=== PATIENT | male | born 1955 | race Caucasian/White ===

== ENCOUNTER → 2017-11-12 11:05 | Outpatient (CLI) | payer OTHER, SELFPAY ==
--- NOTE | 2017-11-12 11:07 | DI.US.S_ITS ---
PROCEDURE: US CAROTID DOPPLER BI INDICATIONS: ACUTE COGNITIVE DECLINE TECHNIQUE: Color and pulse Doppler interrogation was performed of both carotid systems, with image documentation and velocity measurements. COMPARISON: None. FINDINGS: Stenosis calculations are based on SRU (Society of Radiologists in Ultrasound) criteria. Right side: Brachial blood pressure: 131/81 mm Hg. Common carotid artery peak systolic velocity: 71 cm/sec. Internal carotid artery peak systolic velocity: 72 cm/sec. Internal carotid artery end diastolic velocity: 30 cm/sec. External carotid artery peak systolic velocity: 57 cm/sec. ICA/CCA peak systolic ratio: 1.02 . Chapman scale imaging description: Minimal plaque at the bifurcation. Percent internal carotid artery stenosis: Less than 50%. Vertebral artery: Flow direction is antegrade. Left side: Brachial blood pressure: 115/70 mm Hg. Common carotid artery peak systolic velocity: 116 cm/sec. Internal carotid artery peak systolic velocity: 74 cm/sec. Internal carotid artery end diastolic velocity: 27 cm/sec. External carotid artery peak systolic velocity: 91 cm/sec. ICA/CCA peak systolic ratio: 0.64 . Chapman scale imaging description: Mild plaque at the bifurcation Percent internal carotid artery stenosis: Less than 50%. Vertebral artery: Flow direction is antegrade. IMPRESSION: Less than 50% stenosis of the internal carotid arteries bilaterally. Dictated by: Teodora Ko M.D. on 11/12/2017 at 12:14 Approved by: Teodora Ko M.D. on 11/12/2017 at 12:15
[2017-11-12 12:37] LABS: Hematocrit 45.3 % (41-53); Hemoglobin 15.4 g/dL (13.5-17.5); Mean Corpuscular HGB Conc 33.9 % (30-36); Mean Corpuscular Hemoglobin 31.6 PG (26-34); Mean Corpuscular Volume 93.3 fL (80-100); Platelet Count 103 X10^3/uL (150-400); Red Blood Cell Count 4.86 X10^6/uL (4.5-5.9); Red Cell Distribution Width 15.6 % (11.6-14.8); White Blood Cell Count 5.6 X10^3/uL (4.5-11.0)
[2017-11-12 13:00] LABS: Neutrophils Absolute Manual 3864 /uL (3000-5900); Total Cells Counted 100
[2017-11-12 13:01] LABS: RBC Morphology Normal Morphology
[2017-11-12 13:06] LABS: Alanine Aminotransferase 35 IU/L (21-72); Albumin 4.1 g/dL (3.5-5.0); Albumin Globulin Ratio 1.3 (1.0-2.8); Alkaline Phosphatase 30 U/L (38-126); Aspartate Aminotransferase 21 IU/L (17-59); BUN Creatinine Ratio 17.5 (6-22); Bilirubin Total 0.9 mg/dL (0.2-1.3); Blood Urea Nitrogen 14 mg/dL (9-20); Calcium 9.6 mg/dL (8.4-10.2); Carbon Dioxide 30 mmol/L (22-32); Chloride 100 mmol/L (98-107); Estimated Glomerular Filt Rate > 60.0 mL/min (>60); Globulin 3.2 g/dL (1.7-4.1); Glucose 93 mg/dL (80-110); HEMOLYSIS < 15 (0-50); Potassium 4.3 mmol/L (3.4-5.1); Sodium 139 mmol/L (137-145); Total Protein 7.3 g/dL (6.3-8.2)
[2017-11-12 13:09] LABS: High Sensitivity CRP - Cardiac 0.7 mg/L (1.0-3.0)
[2017-11-13 14:08] LABS: Homocysteine 11.4 umol/L (< 11.4)
== END ==
PROVIDERS: PCP Family Medicine; Visit Provider Physician Assistant
DX: R41.89 Other symptoms and signs involving cognitive functions and awareness (principal); R41.841 Cognitive communication deficit; R41.0 Disorientation, unspecified; Z86.19 Personal history of other infectious and parasitic diseases
CPT/HCPCS: 36415; 80053; 83090; 85025; 86140; 87522; 93880

== ENCOUNTER → 2017-11-22 15:49 | Outpatient (CLI) | payer OTHER, SELFPAY ==
[2017-11-22 17:32] LABS: TSH w/ Reflex to FT4 1.55 uIU/mL (0.47-4.68)
[2017-11-26 15:06] LABS: Alpha Fetoprotein 7.5 ng/mL (< 6.1)
== END ==
PROVIDERS: PCP Family Medicine; Visit Provider Nurse Practitioner Family
DX: I63.9 Cerebral infarction, unspecified (principal); Z86.19 Personal history of other infectious and parasitic diseases; E03.9 Hypothyroidism, unspecified
CPT/HCPCS: 36415; 82105; 84443

== ENCOUNTER → 2017-12-04 17:08 | Outpatient (CLI) | payer OTHER, SELFPAY ==
[2017-12-04 18:10] LABS: Erythrocyte Sedimentation Rate 5 MM/HR (0-15)
[2017-12-04 18:13] LABS: Alanine Aminotransferase 27 IU/L (21-72); Albumin 4.1 g/dL (3.5-5.0); Albumin Globulin Ratio 1.4 (1.0-2.8); Alkaline Phosphatase 30 U/L (38-126); Aspartate Aminotransferase 18 IU/L (17-59); BUN Creatinine Ratio 17.5 (6-22); Bilirubin Total 0.7 mg/dL (0.2-1.3); Blood Urea Nitrogen 14 mg/dL (9-20); Calcium 9.4 mg/dL (8.4-10.2); Carbon Dioxide 26 mmol/L (22-32); Chloride 103 mmol/L (98-107); Estimated Glomerular Filt Rate > 60.0 mL/min (>60); Glucose 102 mg/dL (80-110); HEMOLYSIS < 15 (0-50); Potassium 4.3 mmol/L (3.4-5.1); Sodium 142 mmol/L (137-145); Total Protein 7.1 g/dL (6.3-8.2)
[2017-12-04 18:31] LABS: Free T3, Triiodothyronine Free 3.56 pg/mL (2.77-5.27); Free T4, Direct Thyroxine 1.37 ng/dL (0.78-2.19)
[2017-12-04 18:44] LABS: Thyroid Stimulating Hormone 1.16 uIU/mL (0.47-4.68)
[2017-12-07 15:10] LABS: Alpha Fetoprotein 7.3 ng/mL (< 6.1)
== END ==
PROVIDERS: PCP Family Medicine; Visit Provider Family Medicine
DX: I10 Essential (primary) hypertension (principal); E03.9 Hypothyroidism, unspecified; Z86.19 Personal history of other infectious and parasitic diseases; G31.2 Degeneration of nervous system due to alcohol; F10.20 Alcohol dependence, uncomplicated
CPT/HCPCS: 36415; 80053; 82105; 84439; 84443; 84481; 85651

== ENCOUNTER → 2018-04-22 14:07 | Outpatient (CLI) | payer OTHER, SELFPAY ==
[2018-04-22 14:29] LABS: Add Manual Diff / Slide Review NO; Basophils Percent Auto 0.6 % (0-2); Eosinophils Percent Auto 1.6 % (2-4); Hematocrit 45.8 % (41-53); Hemoglobin 15.2 g/dL (13.5-17.5); Lymphocytes Percent Auto 24.8 % (25-40); Mean Corpuscular HGB Conc 33.2 % (30-36); Mean Corpuscular Hemoglobin 31.6 PG (26-34); Mean Corpuscular Volume 95.4 fL (80-100); Neutrophils Absolute Auto 2400 /uL (3000-5900); Platelet Count 98 X10^3/uL (150-400); Red Cell Distribution Width 15.9 % (11.6-14.8); White Blood Cell Count 3.7 X10^3/uL (4.5-11.0)
[2018-04-22 14:41] LABS: Alanine Aminotransferase 36 IU/L (21-72); Albumin 4.1 g/dL (3.5-5.0); Albumin Globulin Ratio 1.3 (1.0-2.8); Alkaline Phosphatase 41 U/L (38-126); Aspartate Aminotransferase 28 IU/L (17-59); BUN Creatinine Ratio 21.1 (6-22); Bilirubin Total 1.2 mg/dL (0.2-1.3); Blood Urea Nitrogen 19 mg/dL (9-20); Calcium 8.8 mg/dL (8.4-10.2); Carbon Dioxide 27 mmol/L (22-32); Chloride 102 mmol/L (98-107); Cholesterol 145 mg/dL (140-199); Estimated Glomerular Filt Rate > 60.0 mL/min (>60); Globulin 3.2 g/dL (1.7-4.1); Glucose 119 mg/dL (80-110); HDL Cholesterol 65 mg/dL (40-60); HEMOLYSIS < 15 (0-50); LDL Cholesterol Calculated 53 mg/dL (<100); Sodium 141 mmol/L (137-145); Total Protein 7.3 g/dL (6.3-8.2); Triglycerides 136 mg/dL (35-150)
[2018-04-22 15:50] LABS: Thyroid Stimulating Hormone 2.15 uIU/mL (0.47-4.68)
[2018-04-24 14:55] LABS: Alpha Fetoprotein 8.6 ng/mL (< 6.1)
== END ==
PROVIDERS: PCP Family Medicine; Visit Provider Family Medicine
DX: E03.9 Hypothyroidism, unspecified (principal); F10.20 Alcohol dependence, uncomplicated; I10 Essential (primary) hypertension; G31.2 Degeneration of nervous system due to alcohol; Z86.19 Personal history of other infectious and parasitic diseases
CPT/HCPCS: 36415; 80053; 80061; 82105; 84443; 85025

== ENCOUNTER 2018-06-23 01:42 | Emergency (ER) | payer OTHER, SELFPAY ==
[2018-06-23 01:51] VITALS: BP 211/108; PULSE 53; RESP 18; TEMP 36.3; O2SAT 97; BMI 29.8
--- NOTE | 2018-06-23 02:20 | ED.GENADULT ---
HPI - General Adult General Chief complaint: Hypertension Stated complaint: BP is elevated since stopping med Time Seen by Provider: 06/23/18 02:11 Source: patient Mode of arrival: ambulatory Limitations: no limitations History of Present Illness HPI narrative: 62-year-old male here for evaluation of elevated blood pressure. Patient states that he stopped taking his Paxil on the of last month. He states since then he has had elevated blood pressures. He states that he takes his blood pressure at home. He states it is been ?high? he has not written these numbers down. He is taking lisinopril and nadolol. He states that he has been taking these medications. He states he has a follow-up appoint with his primary doctor tomorrow. Denies chest pain or shortness of breath. Occasionally has headache. Related Data Home Medications Medication Instructions Recorded Confirmed triamcinolone acetonide 0.1 % 0.1 % TOPICAL BID PRN gm 12/30/17 06/17/18 topical cream Previous Rx's Medication Instructions Recorded fluticasone 50 mcg/actuation nasal 1 spray NASAL DAILY PRN #16 gram 12/30/17 spray,suspension omeprazole 40 mg capsule,delayed 40 mg PO QDAY #30 cap 02/20/18 release bupropion HCl SR 150 mg tablet,12 150 mg PO BID #60 tab 03/05/18 hr sustained-release lisinopril 10 mg tablet 10 mg PO BID #60 tab 03/05/18 nadolol 40 mg tablet 40 mg PO Q DAY #30 tabs 03/05/18 levothyroxine 112 mcg tablet 0.112 mcg PO QAM #90 tab 04/23/18 Allergies Allergy/AdvReac Type Severity Reaction Status Date / Time buspirone AdvReac Intermediate I DIDN'T Verified 06/17/18 14:28 LIKE HOW IT MADE ME FEEL - HORRIBLE FEELING citalopram AdvReac Mild NAUSEA Verified 06/17/18 14:28 HAYFEVER Allergy Mild RUNNY NOSE Uncoded 06/17/18 14:28 & ITCHY WATERY EYES Review of Systems Constitutional Reports headache(s) (Occasional), Denies lethargy and Denies malaise ENT Ears, Nose, Mouth, and Throat: Denies vertigo, Denies dizziness, Reports headache(s) (Occasional) and Denies disequilibrium Cardiovascular Denies chest pain, Denies syncope, Denies edema, Denies palpitations and Denies dyspnea Respiratory Denies cough and Denies dyspnea Gastrointestinal Gastrointestinal: Denies abdominal pain, Denies nausea and Denies vomiting Genitourinary Denies dysuria Musculoskeletal Denies myalgias, Denies arthralgias and Denies tingling Integumentary/Breasts Denies rash Neurologic Denies behavioral changes, Denies confusion, Denies vertigo, Denies dizziness, Denies syncope, Reports headache(s) (Occasional), Denies focal weakness, Denies tingling and Denies disequilibrium Psychiatric Denies behavioral changes and Denies confusion Endocrine Denies palpitations Hematologic/Lymphatic Denies easy bleeding and Denies easy bruising PFSH Social History Smoking Status: Former smoker Tobacco: How many years used: 21 alcohol intake: former Exam Initial Vital Signs Initial Vital Signs: Vital Signs Temperature 97.4 F L 06/23/18 01:51 Pulse Rate 53 L 06/23/18 01:51 Respiratory Rate 18 06/23/18 01:51 Blood Pressure 211/108 H 06/23/18 01:51 Pulse Oximetry 97 06/23/18 01:51 Const General: cooperative, healthy appearing, comfortable, well developed, well groomed and No acute distress Orientation: alert, awake and oriented x3 HENMT Head: normal to inspection and normocephalic Resp Effort & Inspection: normal respiratory effort Auscultation: clear to auscultation bilaterally Cardio Rate: regular rate Rhythm: regular rhythm GI Inspection: non-distended Palpation: soft and No firm Skin Lesions: no lesions Rashes: no rashes Neuro General: alert, awake and oriented x3 Cognition: normal cognition Speech: speech normal Sensory Exam: no sensory deficits noted Extrem General: normal to inspection, capillary refill normal and No edema Psych Appearance: grossly normal and well kempt Course Orders Ordered: ED Orders 06/23/18 02:11 EKG-12 Lead Stat Vital Signs - 8 hr 06/23/18 01:51 Temperature 97.4 F L Pulse Rate 53 L Respiratory Rate 18 Blood Pressure 211/108 H Pulse Oximetry 97 Medical Decision Making ECG Data Attestation: I personally reviewed and interpreted this ECG as follows: Prior ECG tracings: not available for review Interpretation: Sinus bradycardia Ventricular rate of 52 Normal axis Normal intervals Normal QRS Normal QTC No ST T wave changes MDM Narrative Medical decision making narrative: Patient with history of hypertension. His blood pressure has come down since triage. He is not having any chest pain or shortness of breath. No other findings consistent with other end-organ dysfunction. EKG is unremarkable. He does have an appoint with his primary doctor tomorrow. Had a long discussion with patient regarding blood pressure. Informed him he needed to follow up with his primary care doctor tomorrow and also to take his medications. Will hold on further workup for now. Discharge Plan Departure Patient Disposition: Home Clinical Impression: Hypertension Instructions: DI for High Blood Pressure Activity Restrictions/Additional Instructions: I recommend that you take your medications as directed. I also recommend that you take your blood pressure 1 time a day and record this number. Keep your appointment that she have with her primary care doctor tomorrow. Return to the emergency department for any new symptoms Prescriptions: No Action triamcinolone acetonide [Triderm] 0.1 % cream 0.1 % Topical BID PRNRF: 0 fluticasone 50 mcg/actuation spray,suspension 1 spray NASAL DAILY PRN (Reason: nasal congestion) Qty: 16 RF: 0 levothyroxine 112 mcg tablet 0.112 mcg PO QAM Qty: 90 RF: 1 omeprazole 40 mg capsule,delayed release(DR/EC) 40 mg PO QDAY Qty: 30 RF: 3 nadolol [Corgard] 40 mg tablet 40 mg PO Q DAY Qty: 30 RF: 3 bupropion HCl [Wellbutrin SR] 150 mg tablet extended release 12 hr 150 mg PO BID Qty: 60 RF: 3 lisinopril 10 mg tablet 10 mg PO BID Qty: 60 RF: 3
[2018-06-23 02:55] VITALS: BP 168/98; PULSE 48; RESP 13
[2018-06-23 03:02] VITALS: BP 168/98; PULSE 50; RESP 18; TEMP 36.8; O2SAT 98
== END 2018-06-23 03:03 | disposition home or self-care (01) ==
PROVIDERS: Emergency Provider Emergency Medicine; PCP Family Medicine
DX: I10 Essential (primary) hypertension (principal)
CPT/HCPCS: 93005; 93041; 99283

== ENCOUNTER 2018-06-25 12:57 | Emergency (ER) | payer OTHER, SELFPAY ==
[2018-06-25 13:04] VITALS: BP 210/109; PULSE 67; RESP 18; TEMP 36.7; O2SAT 99
--- NOTE | 2018-06-25 13:08 | DI.RAD.S_ITS ---
PROCEDURE: XR CHEST 1V INDICATIONS: chest pain TECHNIQUE: One view of the chest was acquired. COMPARISON: [facility], , CHEST 1 VIEW, 09/24/2017, 15:04. FINDINGS: Surgical changes and devices: None. Lungs and pleura: No pleural effusions or pneumothorax. Lungs are clear. Mediastinum: Mediastinal contours appear normal. Heart size is normal. Bones and chest wall: No suspicious bony lesions. Overlying soft tissues appear unremarkable. IMPRESSION: Stable chest. No acute cardiopulmonary process is evident. Dictated by: Jesus Tidwell M.D. on 06/25/2018 at 12:41 Approved by: Jesus Tidwell M.D. on 06/25/2018 at 12:49
[2018-06-25 13:29] LABS: Add Manual Diff / Slide Review NO; Basophils Percent Auto 0.8 % (0-2); Eosinophils Percent Auto 1.1 % (2-4); Hemoglobin 16.7 g/dL (13.5-17.5); Lymphocytes Percent Auto 15.4 % (25-40); Mean Corpuscular HGB Conc 34.1 % (30-36); Mean Corpuscular Hemoglobin 31.9 PG (26-34); Mean Corpuscular Volume 93.6 fL (80-100); Monocytes Percent Auto 9.6 % (3-14); Neutrophils Absolute Auto 6000 /uL (1500-7000); Neutrophils Percent Auto 73.1 % (50-75); Platelet Count 132 X10^3/uL (150-400); Red Blood Cell Count 5.24 X10^6/uL (4.5-5.9); Red Cell Distribution Width 13.9 % (11.6-14.8); White Blood Cell Count 8.2 X10^3/uL (4.5-11.0)
[2018-06-25 13:30] VITALS: BP 185/94; PULSE 54; RESP 12; O2SAT 96
[2018-06-25 13:58] LABS: Alanine Aminotransferase 29 IU/L (21-72); Albumin 4.5 g/dL (3.5-5.0); Albumin Globulin Ratio 1.3 (1.0-2.8); Alkaline Phosphatase 31 U/L (38-126); Aspartate Aminotransferase 24 IU/L (17-59); BUN Creatinine Ratio 22.9 (6-22); Bilirubin Total 0.8 mg/dL (0.2-1.3); Blood Urea Nitrogen 16 mg/dL (9-20); Calcium 9.3 mg/dL (8.4-10.2); Carbon Dioxide 26 mmol/L (22-32); Chloride 98 mmol/L (98-107); Estimated Glomerular Filt Rate > 60.0 mL/min (>60); Globulin 3.5 g/dL (1.7-4.1); Glucose 106 mg/dL (80-110); HEMOLYSIS 48 (0-50); Potassium 4.7 mmol/L (3.4-5.1); Sodium 135 mmol/L (137-145)
--- NOTE | 2018-06-25 13:58 | DI.CT.S_ITS ---
PROCEDURE: CT HEAD/BRAIN WO CON INDICATIONS: Elevated blood pressure and headache TECHNIQUE: Noncontrast 4.5 mm thick angled axial sections acquired from the foramen magnum to the vertex, with coronal and sagittal reformats. For radiation dose reduction, the following was used: automated exposure control, adjustment of mA and/or kV according to patient size. COMPARISON: None. FINDINGS: Image quality: Excellent. CSF spaces: Basal cisterns are patent. No extra-axial fluid collections. The ventricles are symmetric in size and shape. Brain: No intracranial bleeds or masses. There is cerebral volume loss for age, with resultant ventricular and sulcal prominence. There are periventricular and deep white matter chronic small vessel ischemic changes. There is intracranial internal carotid artery atherosclerosis. Skull and face: Calvarium and visualized facial bones appear intact, without suspicious lesions. Sinuses: Visualized sinuses and mastoids are clear. IMPRESSION: No acute intracranial disease process. Dictated by: aNtaliia Rosenberg MD, PhD on 06/25/2018 at 15:09 Approved by: Nataliia Rosenberg MD, PhD on 06/25/2018 at 15:12
[2018-06-25 14:00] VITALS: BP 167/98; PULSE 55; RESP 15; O2SAT 96
--- NOTE | 2018-06-25 14:00 | ED.CHESTPAIN ---
HPI - Chest Pain <TIMUR Saldana - Last Filed: 06/25/18 22:07> General Chief Complaint: Chest Pain Stated Complaint: HEART POUNDING/CHEST PAIN Time Seen by Provider: 06/25/18 13:44 Source: patient Mode of arrival: ambulatory Limitations: no limitations History of Present Illness HPI narrative: 62-year-old male with history of hypertension and anxiety that is a former smoker here for complaint of feeling like his heart has been pounding with headache and elevated blood pressure over the past couple weeks. He was currently taking Paxil for his anxiety/depression and weaned off of it a couple weeks ago. Reports having symptoms like this since he came off of the Paxil. He denies any chest pain. He denies any shortness of breath. He has been seen for this a few times both in the emergency room and also his primary care provider office for this over the past few weeks. He denies any stressors or relievers of his symptoms. He was recently increased in his lisinopril dosing to help with his blood pressure. He was prescribed diazepam to help with his anxiety. He states he has not taking the diazepam as he has not filled the prescription as of yet. No fevers no chills. Positive p.o. intake. No nausea vomiting. No diaphoresis Related Data Home Medications Medication Instructions Recorded Confirmed triamcinolone acetonide 0.1 % 0.1 % TOPICAL BID PRN gm 12/30/17 06/25/18 topical cream nadolol [Corgard] 40 mg PO DAILY 06/25/18 06/25/18 omeprazole 40 mg PO DAILY 06/25/18 06/25/18 paroxetine HCl 10 mg PO DAILY 06/25/18 06/25/18 Previous Rx's Medication Instructions Recorded bupropion HCl SR 150 mg tablet,12 150 mg PO BID #60 tab 03/05/18 hr sustained-release levothyroxine 112 mcg tablet 0.112 mcg PO QAM #90 tab 04/23/18 diazepam 5 mg tablet 5 mg PO DAILY PRN #10 tab 06/25/18 fluticasone 50 mcg/actuation nasal 1 spray NASAL DAILY PRN #16 gram 06/25/18 spray,suspension lisinopril 40 mg tablet 40 mg PO DAILY #30 tab 06/26/18 Allergies Allergy/AdvReac Type Severity Reaction Status Date / Time buspirone AdvReac Intermediate I DIDN'T Verified 06/24/18 14:17 LIKE HOW IT MADE ME FEEL - HORRIBLE FEELING citalopram AdvReac Mild NAUSEA Verified 06/24/18 14:17 HAYFEVER Allergy Mild RUNNY NOSE Uncoded 06/24/18 14:17 & ITCHY WATERY EYES Review of Systems <TIMUR Saldana - Last Filed: 06/25/18 22:07> Constitutional Denies chills, Denies fatigue, Denies fever(s), Denies lethargy and Denies weakness Eyes Denies change in vision, Denies eye discharge, Denies irritation and Denies loss of vision ENT Ears, Nose, Mouth, and Throat: Denies change in voice, Denies neck pain and Denies sore throat Cardiovascular Denies dyspnea and Denies dyspnea on exertion Comments: Elevated blood pressure with feeling like his heart is pounding Respiratory Denies cough, Denies dyspnea, Denies dyspnea on exertion and Denies wheezing Gastrointestinal Gastrointestinal: Denies abdominal pain, Denies change in bowel habits, Denies diarrhea, Denies nausea and Denies vomiting Genitourinary Denies hematuria, Denies flank pain, Denies urinary incontinence and Denies urinary urgency Musculoskeletal Denies neck pain Integumentary/Breasts Denies pruritus, Denies erythema, Denies rash and Denies wounds Neurologic Denies confusion, Denies loss of vision and Denies weakness Comments: Headache Psychiatric Reports anxiety, Denies confusion, Denies depression, Denies homicidal ideation and Denies suicidal ideation Endocrine Denies fatigue and Denies flushing Hematologic/Lymphatic Denies easy bruising Allergic/Immunologic Denies wheezing Exam <TIMUR Saldana - Last Filed: 06/25/18 22:07> Initial Vital Signs Initial Vital Signs: Vital Signs Temperature 98.1 F 06/25/18 13:04 Pulse Rate 67 06/25/18 13:04 Respiratory Rate 18 06/25/18 13:04 Blood Pressure 210/109 H 06/25/18 13:04 Pulse Oximetry 99 06/25/18 13:04 Const General: cooperative and well developed Nutritional Appearance: well nourished Orientation: alert, awake, oriented x3 and not confused HENMT Head: normal to inspection, normocephalic and atraumatic Mouth: oral mucosae normal and moist mucous membranes Eyes Conjunctivae: conjunctivae normal Sclera: sclerae normal Pupils: PERRL EOM: EOM intact bilaterally Chest Chest: normal inspection of the chest Resp Effort & Inspection: normal respiratory effort, able to speak in complete sentences, no respiratory distress and no use of accessory muscles Auscultation: clear to auscultation bilaterally, no rales, no rhonchi and no wheezes Cardio Rate: regular rate Rhythm: regular rhythm Heart Sounds: no click, no gallops, no murmurs and no rubs Pulses: normal peripheral pulses Skin General: no rashes or lesions noted, No jaundice and No petechiae Neuro General: alert, oriented x3, gait normal and no focal motor deficits Speech: speech normal <Jenny Doherty DO - Last Filed: 06/26/18 19:48> Initial Vital Signs Initial Vital Signs: Vital Signs Temperature 98.1 F 06/25/18 13:04 Pulse Rate 67 06/25/18 13:04 Respiratory Rate 18 06/25/18 13:04 Blood Pressure 210/109 H 06/25/18 13:04 Pulse Oximetry 99 06/25/18 13:04 Course <TIMUR Saldana - Last Filed: 06/25/18 22:07> Orders Ordered: Discontinued Medications Sodium Chloride (Normal Saline 0.9%) 1,000 mls @ 150 mls/hr IV CONT CFO Last Infusion: 06/25/18 16:03 Dose: 0 mls/hr Admin: 06/25/18 14:33 Dose: 150 mls/hr Vital Signs - 8 hr 06/25/18 14:30 06/25/18 15:00 06/25/18 16:04 Pulse Rate 50 L 62 59 L Respiratory Rate 13 23 18 Blood Pressure 156/90 H Blood Pressure [Left Arm] 167/98 H 180/97 H Pulse Oximetry 96 91 98 <Jenny Doherty DO - Last Filed: 06/26/18 19:48> Orders Ordered: Discontinued Medications Sodium Chloride (Normal Saline 0.9%) 1,000 mls @ 150 mls/hr IV CONT FCO Last Infusion: 06/25/18 16:03 Dose: 0 mls/hr Admin: 06/25/18 14:33 Dose: 150 mls/hr Vital Signs - 8 hr 06/25/18 14:30 06/25/18 15:00 06/25/18 16:04 Pulse Rate 50 L 62 59 L Respiratory Rate 13 23 18 Blood Pressure 156/90 H Blood Pressure [Left Arm] 167/98 H 180/97 H Pulse Oximetry 96 91 98 MDM - Chest Pain <Alin TIMUR Velasco - Last Filed: 06/25/18 22:07> Lab Data Result diagrams: 06/25/18 13:15 06/25/18 13:42 Lab Results 06/25/18 06/25/18 06/25/18 Range/Units 13:15 13:42 13:42 WBC 8.2 (4.5-11.0) X10^3/uL RBC 5.24 (4.5-5.9) X10^6/uL Hgb 16.7 (13.5-17.5) g/dL Hct 49.0 (41-53) % MCV 93.6 (80-100) fL MCH 31.9 (26-34) PG MCHC 34.1 (30-36) % RDW 13.9 (11.6-14.8) % Plt Count 132 L (150-400) X10^3/uL Neut % (Auto) 73.1 (50-75) % Lymph % (Auto) 15.4 L (25-40) % [place] % (Auto) 9.6 (3-14) % Eos % (Auto) 1.1 L (2-4) % Baso % (Auto) 0.8 (0-2) % Neut # (Auto) 6000 (6907-5079) /uL Sodium 135 L (137-145) mmol/L Potassium 4.7 (3.4-5.1) mmol/L Chloride 98 (98-107) mmol/L Carbon Dioxide 26 (22-32) mmol/L BUN 16 (9-20) mg/dL Creatinine 0.70 (0.66-1.25) mg/dL Estimated GFR > 60.0 (>60) mL/min BUN/Creatinine Ratio 22.9 H (6-22) Glucose 106 (80-110) mg/dL Calcium 9.3 (8.4-10.2) mg/dL Total Bilirubin 0.8 (0.2-1.3) mg/dL AST 24 (17-59) IU/L ALT 29 (21-72) IU/L Alkaline Phosphatase 31 L (38-126) U/L Total Creatine Kinase 38 L (55-170) U/L CK-MB (CK-2) TNP CK-MB (CK-2) Rel Index TNP Troponin I < 0.012 (0.01-0.034) ng/mL Total Protein 8.0 (6.3-8.2) g/dL Albumin 4.5 (3.5-5.0) g/dL Globulin 3.5 (1.7-4.1) g/dL Albumin/Globulin Ratio 1.3 (1.0-2.8) Urine Dip Bedside Urine Glucose Negative Bedside Urine Bilirubin - Negative Bedside Urine Ketone +/- 5 Urine Specific [place] 1.015 Bedside Urine Occult Blood - Negative Bedside Urine pH 7.5 Bedside Urine Protein - Negative Bedside Urine Urobilinogen - Negative Bedside Urine Nitrite - Negative Bedside Urine Leukocytes - Negative Esterase Imaging Data CT scan - head: Radiologist's impression: View Report History [address] [address] [address] Scan Report Signed Patient: Mayra Aguayo MR#: [id number] : 1955 Acct:[id number] Age/Sex: 62 / M Date of Service: 06/25/18 Loc: ED Accession Number: [id number] Procedure: CT head/brain wo con Ordering Provider: Alin Velasco PROCEDURE: CT HEAD/BRAIN WO CON INDICATIONS: Elevated blood pressure and headache TECHNIQUE: Noncontrast 4.5 mm thick angled axial sections acquired from the foramen magnum to the vertex, with coronal and sagittal reformats. For radiation dose reduction, the following was used: automated exposure control, adjustment of mA and/or kV according to patient size. COMPARISON: None. FINDINGS: Image quality: Excellent. CSF spaces: Basal cisterns are patent. No extra-axial fluid collections. The ventricles are symmetric in size and shape. Brain: No intracranial bleeds or masses. There is cerebral volume loss for age, with resultant ventricular and sulcal prominence. There are periventricular and deep white matter chronic small vessel ischemic changes. There is intracranial internal carotid artery atherosclerosis. Skull and face: Calvarium and visualized facial bones appear intact, without suspicious lesions. Sinuses: Visualized sinuses and mastoids are clear. IMPRESSION: No acute intracranial disease process. Dictated by: Nataliia Rosenberg MD, PhD on 06/25/2018 at 15:09 Approved by: Nataliia Rosenberg MD, PhD on 06/25/2018 at 15:12 Chest x-ray: Radiologist's impression: [address] [address] XRay Report Signed Patient: Mayra Aguayo MR#: [id number] : 1955 Acct:[id number] Age/Sex: 62 / M Date of Service: 06/25/18 Loc: ED Accession Number: [id number] Procedure: XR chest 1V Ordering Provider: Alin Velasco PROCEDURE: XR CHEST 1V INDICATIONS: chest pain TECHNIQUE: One view of the chest was acquired. COMPARISON: [facility], CHEST 1 VIEW, 09/24/2017, 15:04. FINDINGS: Surgical changes and devices: None. Lungs and pleura: No pleural effusions or pneumothorax. Lungs are clear. Mediastinum: Mediastinal contours appear normal. Heart size is normal. Bones and chest wall: No suspicious bony lesions. Overlying soft tissues appear unremarkable. IMPRESSION: Stable chest. No acute cardiopulmonary process is evident. Dictated by: Jesus Tidwell M.D. on 06/25/2018 at 12:41 Approved by: Jesus Tidwell M.D. on 06/25/2018 at 12:49 ECG Data Interpretation: EKG shows sinus bradycardia with no ST elevation or depression. No ectopy. Ventricular rate of 57. [place] interval 161. QRS duration of 105. QTC is 399. MDM Narrative Medical decision making narrative: CBC and Chem panel were obtained were unremarkable. Cardiac enzymes were obtained and were negative. Chest x-ray was negative for any acute findings. Due to elevated blood pressure and headache is CT of the head was obtained and was negative for any acute findings. No signs of end-organ damage. EKG shows sinus bradycardia with ventricular rate 57. No ST elevation or depression. No ectopy. Symptoms of sensation of pounding heart believe is due to anxiety due to recently stopping taking his Paxil. Blood pressure is elevated today in the emergency room. He recently had his dose increased on his lisinopril. Will have follow-up with primary care provider in the next few days for re-evaluation and evaluation of currently prescribed hypertension regimen. Is encouraged that he uses his prescribed anti anxiety medications as directed. Follow up primary care provider return emergency room for any worsening symptoms <Jenny Doherty DO - Last Filed: 06/26/18 19:48> Lab Data Lab Results 06/25/18 06/25/18 06/25/18 Range/Units 13:15 13:42 13:42 WBC 8.2 (4.5-11.0) X10^3/uL RBC 5.24 (4.5-5.9) X10^6/uL Hgb 16.7 (13.5-17.5) g/dL Hct 49.0 (41-53) % MCV 93.6 (80-100) fL MCH 31.9 (26-34) PG MCHC 34.1 (30-36) % RDW 13.9 (11.6-14.8) % Plt Count 132 L (150-400) X10^3/uL Neut % (Auto) 73.1 (50-75) % Lymph % (Auto) 15.4 L (25-40) % [place] % (Auto) 9.6 (3-14) % Eos % (Auto) 1.1 L (2-4) % Baso % (Auto) 0.8 (0-2) % Neut # (Auto) 6000 (1770-1407) /uL Sodium 135 L (137-145) mmol/L Potassium 4.7 (3.4-5.1) mmol/L Chloride 98 (98-107) mmol/L Carbon Dioxide 26 (22-32) mmol/L BUN 16 (9-20) mg/dL Creatinine 0.70 (0.66-1.25) mg/dL Estimated GFR > 60.0 (>60) mL/min BUN/Creatinine Ratio 22.9 H (6-22) Glucose 106 (80-110) mg/dL Calcium 9.3 (8.4-10.2) mg/dL Total Bilirubin 0.8 (0.2-1.3) mg/dL AST 24 (17-59) IU/L ALT 29 (21-72) IU/L Alkaline Phosphatase 31 L (38-126) U/L Total Creatine Kinase 38 L (55-170) U/L CK-MB (CK-2) TNP CK-MB (CK-2) Rel Index TNP Troponin I < 0.012 (0.01-0.034) ng/mL Total Protein 8.0 (6.3-8.2) g/dL Albumin 4.5 (3.5-5.0) g/dL Globulin 3.5 (1.7-4.1) g/dL Albumin/Globulin Ratio 1.3 (1.0-2.8) Urine Dip Bedside Urine Glucose Negative Bedside Urine Bilirubin - Negative Bedside Urine Ketone +/- 5 Urine Specific [place] 1.015 Bedside Urine Occult Blood - Negative Bedside Urine pH 7.5 Bedside Urine Protein - Negative Bedside Urine Urobilinogen - Negative Bedside Urine Nitrite - Negative Bedside Urine Leukocytes - Negative Esterase Discharge Plan Departure Patient Disposition: Home Clinical Impression: Hypertension Discharge Date/Time: 06/25/18 16:04 Interventions: ED Discharge Assessment Last Done: 06/25/18 16:04 Instructions: DI for Anxiety -- Adult Activity Restrictions/Additional Instructions: Laboratory results EKG and imaging today were normal. Blood pressure was elevated today the emergency room. Ensure you are taking your blood pressure medications as prescribed. Recommend taking anxiety medications as prescribed. Try relaxation techniques to help with her symptoms. Follow up with her primary care provider the next few days for re-evaluation. For any worsening symptoms return to the emergency room. Prescriptions: No Action triamcinolone acetonide [Triderm] 0.1 % cream 0.1 % Topical BID PRN (Reason: unknown) RF: 0 levothyroxine 112 mcg tablet 0.112 mcg PO QAM Qty: 90 RF: 1 bupropion HCl [Wellbutrin SR] 150 mg tablet extended release 12 hr 150 mg PO BID Qty: 60 RF: 3 fluticasone 50 mcg/actuation spray,suspension 1 spray NASAL DAILY PRN (Reason: nasal congestion) Qty: 16 RF: 0 diazepam 5 mg tablet 5 mg PO DAILY PRN (Reason: anxiety) Qty: 10 RF: 0 lisinopril 40 mg tablet 40 mg PO DAILY Qty: 30 RF: 0 paroxetine HCl 10 mg tablet 10 mg PO DAILY RF: 0 omeprazole 40 mg capsule,delayed release(DR/EC) 40 mg PO DAILY RF: 0 nadolol [Corgard] 40 mg tablet 40 mg PO DAILY RF: 0 Referrals: Adia Kirkpatrick DO [Primary Care Provider] - <Jenny Doherty DO - Last Filed: 06/26/18 19:48> Cosign ED Attending Cosignature Attestation: I was immediately available in the department for consultation. This documentation has been reviewed and I agree with assessment and plan. Supervised by Jenny Doherty, DO
--- NOTE | 2018-06-25 14:04 | ED_ITS ---
HPI - Chest Pain <TIMUR Saldana - Last Filed: 06/25/18 22:07> General Chief Complaint: Chest Pain Stated Complaint: HEART POUNDING/CHEST PAIN Time Seen by Provider: 06/25/18 13:44 Source: patient Mode of arrival: ambulatory Limitations: no limitations History of Present Illness HPI narrative: 62-year-old male with history of hypertension and anxiety that is a former smoker here for complaint of feeling like his heart has been pounding with headache and elevated blood pressure over the past couple weeks. He was currently taking Paxil for his anxiety/depression and weaned off of it a couple weeks ago. Reports having symptoms like this since he came off of the Paxil. He denies any chest pain. He denies any shortness of breath. He has been seen for this a few times both in the emergency room and also his primary care provider office for this over the past few weeks. He denies any stressors or relievers of his symptoms. He was recently increased in his lisinopril dosing to help with his blood pressure. He was prescribed diazepam to help with his anxiety. He states he has not taking the diazepam as he has not filled the prescription as of yet. No fevers no chills. Positive p.o. intake. No nausea vomiting. No diaphoresis Related Data Home Medications Medication Instructions Recorded Confirmed triamcinolone acetonide 0.1 % 0.1 % TOPICAL BID PRN gm 12/30/17 06/25/18 topical cream nadolol [Corgard] 40 mg PO DAILY 06/25/18 06/25/18 omeprazole 40 mg PO DAILY 06/25/18 06/25/18 paroxetine HCl 10 mg PO DAILY 06/25/18 06/25/18 Previous Rx's Medication Instructions Recorded bupropion HCl SR 150 mg tablet,12 150 mg PO BID #60 tab 03/05/18 hr sustained-release levothyroxine 112 mcg tablet 0.112 mcg PO QAM #90 tab 04/23/18 diazepam 5 mg tablet 5 mg PO DAILY PRN #10 tab 06/25/18 fluticasone 50 mcg/actuation nasal 1 spray NASAL DAILY PRN #16 gram 06/25/18 spray,suspension lisinopril 40 mg tablet 40 mg PO DAILY #30 tab 06/26/18 Allergies Allergy/AdvReac Type Severity Reaction Status Date / Time buspirone AdvReac Intermediate I DIDN'T Verified 06/24/18 14:17 LIKE HOW IT MADE ME FEEL - HORRIBLE FEELING citalopram AdvReac Mild NAUSEA Verified 06/24/18 14:17 HAYFEVER Allergy Mild RUNNY NOSE Uncoded 06/24/18 14:17 & ITCHY WATERY EYES Review of Systems <TIMUR Saldana - Last Filed: 06/25/18 22:07> Constitutional Denies chills, Denies fatigue, Denies fever(s), Denies lethargy and Denies weakness Eyes Denies change in vision, Denies eye discharge, Denies irritation and Denies loss of vision ENT Ears, Nose, Mouth, and Throat: Denies change in voice, Denies neck pain and Denies sore throat Cardiovascular Denies dyspnea and Denies dyspnea on exertion Comments: Elevated blood pressure with feeling like his heart is pounding Respiratory Denies cough, Denies dyspnea, Denies dyspnea on exertion and Denies wheezing Gastrointestinal Gastrointestinal: Denies abdominal pain, Denies change in bowel habits, Denies diarrhea, Denies nausea and Denies vomiting Genitourinary Denies hematuria, Denies flank pain, Denies urinary incontinence and Denies urinary urgency Musculoskeletal Denies neck pain Integumentary/Breasts Denies pruritus, Denies erythema, Denies rash and Denies wounds Neurologic Denies confusion, Denies loss of vision and Denies weakness Comments: Headache Psychiatric Reports anxiety, Denies confusion, Denies depression, Denies homicidal ideation and Denies suicidal ideation Endocrine Denies fatigue and Denies flushing Hematologic/Lymphatic Denies easy bruising Allergic/Immunologic Denies wheezing Exam <TIMUR Saldana - Last Filed: 06/25/18 22:07> Initial Vital Signs Initial Vital Signs: Vital Signs Temperature 98.1 F 06/25/18 13:04 Pulse Rate 67 06/25/18 13:04 Respiratory Rate 18 06/25/18 13:04 Blood Pressure 210/109 H 06/25/18 13:04 Pulse Oximetry 99 06/25/18 13:04 Const General: cooperative and well developed Nutritional Appearance: well nourished Orientation: alert, awake, oriented x3 and not confused HENMT Head: normal to inspection, normocephalic and atraumatic Mouth: oral mucosae normal and moist mucous membranes Eyes Conjunctivae: conjunctivae normal Sclera: sclerae normal Pupils: PERRL EOM: EOM intact bilaterally Chest Chest: normal inspection of the chest Resp Effort & Inspection: normal respiratory effort, able to speak in complete sentences, no respiratory distress and no use of accessory muscles Auscultation: clear to auscultation bilaterally, no rales, no rhonchi and no wheezes Cardio Rate: regular rate Rhythm: regular rhythm Heart Sounds: no click, no gallops, no murmurs and no rubs Pulses: normal peripheral pulses Skin General: no rashes or lesions noted, No jaundice and No petechiae Neuro General: alert, oriented x3, gait normal and no focal motor deficits Speech: speech normal <Jenny Doherty DO - Last Filed: 06/26/18 19:48> Initial Vital Signs Initial Vital Signs: Vital Signs Temperature 98.1 F 06/25/18 13:04 Pulse Rate 67 06/25/18 13:04 Respiratory Rate 18 06/25/18 13:04 Blood Pressure 210/109 H 06/25/18 13:04 Pulse Oximetry 99 06/25/18 13:04 Course <TIMUR Saldana - Last Filed: 06/25/18 22:07> Orders Ordered: Discontinued Medications Sodium Chloride (Normal Saline 0.9%) 1,000 mls @ 150 mls/hr IV CONT FCO Last Infusion: 06/25/18 16:03 Dose: 0 mls/hr Admin: 06/25/18 14:33 Dose: 150 mls/hr Vital Signs - 8 hr 06/25/18 14:30 06/25/18 15:00 06/25/18 16:04 Pulse Rate 50 L 62 59 L Respiratory Rate 13 23 18 Blood Pressure 156/90 H Blood Pressure [Left Arm] 167/98 H 180/97 H Pulse Oximetry 96 91 98 <Jenny Doherty DO - Last Filed: 06/26/18 19:48> Orders Ordered: Discontinued Medications Sodium Chloride (Normal Saline 0.9%) 1,000 mls @ 150 mls/hr IV CONT FCO Last Infusion: 06/25/18 16:03 Dose: 0 mls/hr Admin: 06/25/18 14:33 Dose: 150 mls/hr Vital Signs - 8 hr 06/25/18 14:30 06/25/18 15:00 06/25/18 16:04 Pulse Rate 50 L 62 59 L Respiratory Rate 13 23 18 Blood Pressure 156/90 H Blood Pressure [Left Arm] 167/98 H 180/97 H Pulse Oximetry 96 91 98 MDM - Chest Pain <Alin TIMUR Velasco - Last Filed: 06/25/18 22:07> Lab Data Result diagrams: 06/25/18 13:15 06/25/18 13:42 Lab Results 06/25/18 06/25/18 06/25/18 Range/Units 13:15 13:42 13:42 WBC 8.2 (4.5-11.0) X10^3/uL RBC 5.24 (4.5-5.9) X10^6/uL Hgb 16.7 (13.5-17.5) g/dL Hct 49.0 (41-53) % MCV 93.6 (80-100) fL MCH 31.9 (26-34) PG MCHC 34.1 (30-36) % RDW 13.9 (11.6-14.8) % Plt Count 132 L (150-400) X10^3/uL Neut % (Auto) 73.1 (50-75) % Lymph % (Auto) 15.4 L (25-40) % [place] % (Auto) 9.6 (3-14) % Eos % (Auto) 1.1 L (2-4) % Baso % (Auto) 0.8 (0-2) % Neut # (Auto) 6000 (9072-4698) /uL Sodium 135 L (137-145) mmol/L Potassium 4.7 (3.4-5.1) mmol/L Chloride 98 (98-107) mmol/L Carbon Dioxide 26 (22-32) mmol/L BUN 16 (9-20) mg/dL Creatinine 0.70 (0.66-1.25) mg/dL Estimated GFR > 60.0 (>60) mL/min BUN/Creatinine Ratio 22.9 H (6-22) Glucose 106 (80-110) mg/dL Calcium 9.3 (8.4-10.2) mg/dL Total Bilirubin 0.8 (0.2-1.3) mg/dL AST 24 (17-59) IU/L ALT 29 (21-72) IU/L Alkaline Phosphatase 31 L (38-126) U/L Total Creatine Kinase 38 L (55-170) U/L CK-MB (CK-2) TNP CK-MB (CK-2) Rel Index TNP Troponin I < 0.012 (0.01-0.034) ng/mL Total Protein 8.0 (6.3-8.2) g/dL Albumin 4.5 (3.5-5.0) g/dL Globulin 3.5 (1.7-4.1) g/dL Albumin/Globulin Ratio 1.3 (1.0-2.8) Urine Dip Bedside Urine Glucose Negative Bedside Urine Bilirubin - Negative Bedside Urine Ketone +/- 5 Urine Specific [place] 1.015 Bedside Urine Occult Blood - Negative Bedside Urine pH 7.5 Bedside Urine Protein - Negative Bedside Urine Urobilinogen - Negative Bedside Urine Nitrite - Negative Bedside Urine Leukocytes - Negative Esterase Imaging Data CT scan - head: Radiologist's impression: View Report History [address] [address] [address] Scan Report Signed Patient: Mayra Aguayo MR#: [id number] : 1955 Acct:[id number] Age/Sex: 62 / M Date of Service: 06/25/18 Loc: ED Accession Number: [id number] Procedure: CT head/brain wo con Ordering Provider: Alin Velasco PROCEDURE: CT HEAD/BRAIN WO CON INDICATIONS: Elevated blood pressure and headache TECHNIQUE: Noncontrast 4.5 mm thick angled axial sections acquired from the foramen magnum to the vertex, with coronal and sagittal reformats. For radiation dose reduction, the following was used: automated exposure control, adjustment of mA and/or kV according to patient size. COMPARISON: None. FINDINGS: Image quality: Excellent. CSF spaces: Basal cisterns are patent. No extra-axial fluid collections. The ventricles are symmetric in size and shape. Brain: No intracranial bleeds or masses. There is cerebral volume loss for age , with resultant ventricular and sulcal prominence. There are periventricular and deep white matter chronic small vessel ischemic changes. There is intracranial internal carotid artery atherosclerosis. Skull and face: Calvarium and visualized facial bones appear intact, without suspicious lesions. Sinuses: Visualized sinuses and mastoids are clear. IMPRESSION: No acute intracranial disease process. Dictated by: Nataliia Rosenberg MD, PhD on 06/25/2018 at 15:09 Approved by: Nataliia Rosenberg MD, PhD on 06/25/2018 at 15:12 Chest x-ray: Radiologist's impression: [address] [address] XRay Report Signed Patient: Mayra Aguayo MR#: [id number] : 1955 Acct:[id number] Age/Sex: 62 / M Date of Service: 06/25/18 Loc: ED Accession Number: [id number] Procedure: XR chest 1V Ordering Provider: Alin Velasco PROCEDURE: XR CHEST 1V INDICATIONS: chest pain TECHNIQUE: One view of the chest was acquired. COMPARISON: [facility], CHEST 1 VIEW, 09/24/2017, 15:04. FINDINGS: Surgical changes and devices: None. Lungs and pleura: No pleural effusions or pneumothorax. Lungs are clear. Mediastinum: Mediastinal contours appear normal. Heart size is normal. Bones and chest wall: No suspicious bony lesions. Overlying soft tissues appear unremarkable. IMPRESSION: Stable chest. No acute cardiopulmonary process is evident. Dictated by: Jesus Tidwell M.D. on 06/25/2018 at 12:41 Approved by: Jesus Tidwell M.D. on 06/25/2018 at 12:49 ECG Data Interpretation: EKG shows sinus bradycardia with no ST elevation or depression. No ectopy. Ventricular rate of 57. NC interval 161. QRS duration of 105. QTC is 399. MDM Narrative Medical decision making narrative: CBC and Chem panel were obtained were unremarkable. Cardiac enzymes were obtained and were negative. Chest x-ray was negative for any acute findings. Due to elevated blood pressure and headache is CT of the head was obtained and was negative for any acute findings. No signs of end-organ damage. EKG shows sinus bradycardia with ventricular rate 57. No ST elevation or depression. No ectopy. Symptoms of sensation of pounding heart believe is due to anxiety due to recently stopping taking his Paxil. Blood pressure is elevated today in the emergency room. He recently had his dose increased on his lisinopril. Will have follow-up with primary care provider in the next few days for re-evaluation and evaluation of currently prescribed hypertension regimen. Is encouraged that he uses his prescribed anti anxiety medications as directed. Follow up primary care provider return emergency room for any worsening symptoms <Jenny Doherty DO - Last Filed: 06/26/18 19:48> Lab Data Lab Results 06/25/18 06/25/18 06/25/18 Range/Units 13:15 13:42 13:42 WBC 8.2 (4.5-11.0) X10^3/uL RBC 5.24 (4.5-5.9) X10^6/uL Hgb 16.7 (13.5-17.5) g/dL Hct 49.0 (41-53) % MCV 93.6 (80-100) fL MCH 31.9 (26-34) PG MCHC 34.1 (30-36) % RDW 13.9 (11.6-14.8) % Plt Count 132 L (150-400) X10^3/uL Neut % (Auto) 73.1 (50-75) % Lymph % (Auto) 15.4 L (25-40) % [place] % (Auto) 9.6 (3-14) % Eos % (Auto) 1.1 L (2-4) % Baso % (Auto) 0.8 (0-2) % Neut # (Auto) 6000 (8598-5614) /uL Sodium 135 L (137-145) mmol/L Potassium 4.7 (3.4-5.1) mmol/L Chloride 98 (98-107) mmol/L Carbon Dioxide 26 (22-32) mmol/L BUN 16 (9-20) mg/dL Creatinine 0.70 (0.66-1.25) mg/dL Estimated GFR > 60.0 (>60) mL/min BUN/Creatinine Ratio 22.9 H (6-22) Glucose 106 (80-110) mg/dL Calcium 9.3 (8.4-10.2) mg/dL Total Bilirubin 0.8 (0.2-1.3) mg/dL AST 24 (17-59) IU/L ALT 29 (21-72) IU/L Alkaline Phosphatase 31 L (38-126) U/L Total Creatine Kinase 38 L (55-170) U/L CK-MB (CK-2) TNP CK-MB (CK-2) Rel Index TNP Troponin I < 0.012 (0.01-0.034) ng/mL Total Protein 8.0 (6.3-8.2) g/dL Albumin 4.5 (3.5-5.0) g/dL Globulin 3.5 (1.7-4.1) g/dL Albumin/Globulin Ratio 1.3 (1.0-2.8) Urine Dip Bedside Urine Glucose Negative Bedside Urine Bilirubin - Negative Bedside Urine Ketone +/- 5 Urine Specific [place] 1.015 Bedside Urine Occult Blood - Negative Bedside Urine pH 7.5 Bedside Urine Protein - Negative Bedside Urine Urobilinogen - Negative Bedside Urine Nitrite - Negative Bedside Urine Leukocytes - Negative Esterase Discharge Plan Departure Patient Disposition: Home Clinical Impression: Hypertension Discharge Date/Time: 06/25/18 16:04 Interventions: ED Discharge Assessment Last Done: 06/25/18 16:04 Instructions: DI for Anxiety -- Adult Activity Restrictions/Additional Instructions: Laboratory results EKG and imaging today were normal. Blood pressure was elevated today the emergency room. Ensure you are taking your blood pressure medications as prescribed. Recommend taking anxiety medications as prescribed. Try relaxation techniques to help with her symptoms. Follow up with her primary care provider the next few days for re-evaluation. For any worsening symptoms return to the emergency room. Prescriptions: No Action triamcinolone acetonide [Triderm] 0.1 % cream 0.1 % Topical BID PRN (Reason: unknown) RF: 0 levothyroxine 112 mcg tablet 0.112 mcg PO QAM Qty: 90 RF: 1 bupropion HCl [Wellbutrin SR] 150 mg tablet extended release 12 hr 150 mg PO BID Qty: 60 RF: 3 fluticasone 50 mcg/actuation spray,suspension 1 spray NASAL DAILY PRN (Reason: nasal congestion) Qty: 16 RF: 0 diazepam 5 mg tablet 5 mg PO DAILY PRN (Reason: anxiety) Qty: 10 RF: 0 lisinopril 40 mg tablet 40 mg PO DAILY Qty: 30 RF: 0 paroxetine HCl 10 mg tablet 10 mg PO DAILY RF: 0 omeprazole 40 mg capsule,delayed release(DR/EC) 40 mg PO DAILY RF: 0 nadolol [Corgard] 40 mg tablet 40 mg PO DAILY RF: 0 Referrals: Adia Kirkpatrick DO [Primary Care Provider] - <Jenny Doherty DO - Last Filed: 06/26/18 19:48> Cosign ED Attending Cosignature Attestation: I was immediately available in the department for consultation. This documentation has been reviewed and I agree with assessment and plan. Supervised by Jenny Doherty, DO
[2018-06-25 14:15] LABS: Creatine Kinase 38 U/L (55-170)
[2018-06-25 14:29] LABS: Troponin I < 0.012 ng/mL (0.01-0.034)
[2018-06-25 14:30] VITALS: BP 167/98; PULSE 50; RESP 13; O2SAT 96
[2018-06-25] MEDS: SODIUM CHLORIDE 0.9% 1,000 ML 150 ML IV (14:33)
[2018-06-25 15:00] VITALS: BP 180/97; PULSE 62; RESP 23; O2SAT 91
[2018-06-25 16:04] VITALS: BP 156/90; PULSE 59; RESP 18; O2SAT 98
== END 2018-06-25 16:04 | disposition home or self-care (01) ==
PROVIDERS: Emergency Provider Nurse Practitioner Family; PCP Family Medicine
DX: I10 Essential (primary) hypertension (principal)
CPT/HCPCS: 36591; 70450; 71045; 80053; 81003; 82550; 84484; 85025; 93005; 93041; 96360; 99283; 99285

== ENCOUNTER → 2018-07-21 14:15 | Outpatient (CLI) | payer OTHER, SELFPAY ==
[2018-07-24 14:44] LABS: Alpha Fetoprotein 7.9 ng/mL (< 6.1)
== END ==
PROVIDERS: PCP Family Medicine; Visit Provider Family Medicine
DX: Z86.19 Personal history of other infectious and parasitic diseases (principal)
CPT/HCPCS: 36415; 82105

== ENCOUNTER → 2018-07-30 12:27 | Outpatient (CLI) | payer OTHER, SELFPAY ==
--- NOTE | 2018-07-30 12:29 | DI.US.S_ITS ---
PROCEDURE: US ABDOMEN COMPLETE INDICATIONS: HISTORY OF HEPATITIS C VIRUS TECHNIQUE: Real-time scanning was performed of the abdominal and retroperitoneal organs, with image documentation. COMPARISON: [facility], US, ABDOMEN COMPLETE, 02/28/2017, 12:21. [facility], US, ABDOMEN COMPLETE, 07/27/2016, 13:38. FINDINGS: Liver: Liver is nodular in its margination consistent with cirrhosis, free of focal masses. Gallbladder: The gallbladder appears normal Biliary ducts: Intrahepatic bile ducts are non-dilated. Extrahepatic bile duct caliber measures 4.0 mm. Normal is 6-7 mm or less in diameter, or 10 mm or less post-cholecystectomy. Pancreas: Visualized portions of the pancreas are sonographically normal. Spleen: Spleen is moderately enlarged in size at 15.7 cm craniocaudad, and homogeneous in echotexture. Splenic varices are noted adjacent to the hilum. Kidneys: Kidneys are normal in size and echotexture. Right kidney measures 11.9 cm long; left kidney measures 12.1 cm long. No hydronephrosis or nephrolithiasis. No solid masses. Aorta: Visualized aorta is normal in caliber at less than 3 cm proximally but the lower two thirds is not seen due to overlying bowel gas Iliacs: Not seen due to bowel gas. IVC: Intrahepatic inferior vena cava is patent. Miscellaneous: No free abdominal fluid. IMPRESSION: Nodular hepatic margination, with heterogeneous liver echotexture, cirrhosis appears present but without identified mass lesion. Splenomegaly and perisplenic varices noted. No ascites found. Significant portions of the peritoneal space however were poorly seen due to overlying bowel gas.. Dictated by: Marcial Hager M.D. on 07/30/2018 at 13:20 Approved by: Marcial Hager M.D. on 07/30/2018 at 13:23
== END ==
PROVIDERS: PCP Family Medicine; Visit Provider Family Medicine
DX: K74.60 Unspecified cirrhosis of liver (principal); R16.1 Splenomegaly, not elsewhere classified; Z86.19 Personal history of other infectious and parasitic diseases
CPT/HCPCS: 76700

== ENCOUNTER 2018-12-24 14:17 | Day surgery (SDC) | payer OTHER, SELFPAY ==
--- NOTE | 2018-12-21 16:10 | PM.PREOP ---
Pre-operative Note Interval Note History & Physical reviewed/Exam performed by Physician: Yes Changes to H&P: No
--- NOTE | 2018-12-21 16:11 | PM.OP.1 ---
Operative Date/Time/Diagnoses Date of procedure: 12/24/18 Time of procedure: 15:15 Procedure & Clinicians Procedure: Preoperative diagnoses: 1. 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 2. Multiple medical problems on multiple medications. 3. Previously treated hepatitis-C. 4. Hypertension. 5. Type II diabetes diet controlled stated not active by the patient. 6. Previous alcohol dependency with complications including cirrhosis. Postoperative diagnoses: 1. Cortical cataract removed by phacoemulsification with placement of posterior chamber intraocular lens. Procedure: Phacoemulsification with posterior chamber intraocular lens implant Surgeon: Jses Davis MD Complications: None Specimen: None Implant: ZCBOO+20.0 Blood loss: None Anesthesia: Retrobulbar with monitored standby Description of procedure: Patient with multiple medical problems including mood disorder and previously treated hepatitis C presents with a complaint of decreased vision due to cataract which is affecting activities of daily living. The patient wants surgery to improve vision. He has delayed surgery several times due to health and now has an advanced cataract which will require capsular to remove safely. The patient was taken to the operating room and given IV sedation. A retrobulbar block insert consisting of 6 cc of 2% xylocaine without epinephrine mixed half and half with 0.5% Marcaine with 1 cc of hyaluronidase added is placed between the medial and lateral 1/3 of the inferior orbital rim. Lid akinesia is obtain with 1% xylocaine with epinephrine infiltrated along the lid margin. The eye is manually massaged for 30 sec, prepped using Betadine solution, and draped in the usual sterile fashion. Temporal approach was made, a 1 mm side-port incision was made 90? from the proposed clear corneal incision position. Phenylephrine 1.5% mixed with 1% xylocaine 0.2 cc was placed into the anterior chamber. Viscoat followed by Meagan was then placed. A 2.6 mm clear incision with a 2.6 mm blade was placed. A 360 degree capsulorrhexis style capsulotomy was then performed with a cystitome needle on a Healon. The anterior capsule was somewhat friable and the capsulorrhexis was completed using a Utrata forcep. Hydrodelineation and hydrodissection were performed. The phacoemulsification unit is introduced, and sculpting mode notice used to groove the central lens. It is then removed in chopping mode. Epi nucleus is removed with epinuclear mode and irrigation aspiration was used to remove the peripheral cortex. The posterior capsule is polished. The intraocular lens is selected, inspected, power confirmed, and placed in the posterior chamber. The pupil was constricted with Miostat.. The wound was stromally hydrated and tested for leaks, there was none and it was left sutureless. Vigamox 0.1 cc was placed into the anterior chamber. Kenalog 0.2 cc was placed in the superior subconjunctival space. A drop of antibiotic and was placed and the eye was patched and shielded. The patient was stable and returned to the recovery room in excellent condition. Dictated by: Jess Davis MD Copy to: [facility]
--- NOTE | 2018-12-21 16:16 | P.OP_ITS ---
Operative Date/Time/Diagnoses Date of procedure: 12/24/18 Time of procedure: 15:15 Procedure & Clinicians Procedure: Preoperative diagnoses: 1. 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 2. Multiple medical problems on multiple medications. 3. Previously treated hepatitis-C. 4. Hypertension. 5. Type II diabetes diet controlled stated not active by the patient. 6. Previous alcohol dependency with complications including cirrhosis. Postoperative diagnoses: 1. Cortical cataract removed by phacoemulsification with placement of posterior chamber intraocular lens. Procedure: Phacoemulsification with posterior chamber intraocular lens implant Surgeon: Jess Davis MD Complications: None Specimen: None Implant: ZCBOO+20.0 Blood loss: None Anesthesia: Retrobulbar with monitored standby Description of procedure: Patient with multiple medical problems including mood disorder and previously treated hepatitis C presents with a complaint of decreased vision due to cataract which is affecting activities of daily living. The patient wants surgery to improve vision. He has delayed surgery several times due to health and now has an advanced cataract which will require capsular to remove safely. The patient was taken to the operating room and given IV sedation. A retrobulbar block insert consisting of 6 cc of 2% xylocaine without epinephrine mixed half and half with 0.5% Marcaine with 1 cc of hyaluronidase added is place d between the medial and lateral 1/3 of the inferior orbital rim. Lid akinesia is obtain with 1% xylocaine with epinephrine infiltrated along the lid margin. The eye is manually massaged for 30 sec, prepped using Betadine solution, and draped in the usual sterile fashion. Temporal approach was made, a 1 mm side-port incision was made 90? from the proposed clear corneal incision position. Phenylephrine 1.5% mixed with 1% xylocaine 0.2 cc was placed into the anterior chamber. Viscoat followed by Meagan was then placed. A 2.6 mm clear incision with a 2.6 mm blade was placed. A 360 degree capsulorrhexis style capsulotomy was then performed with a cystitome needle on a Healon. The anterior capsule was somewhat friable and the capsulorrhexis was completed using a Utrata forcep. Hydrodelineation and hydrodissection were performed. The phacoemulsification unit is introduced, and sculpting mode notice used to groove the central lens. It is then removed in chopping mode. Epi nucleus is removed with epinuclear mode and irrigation aspiration was used to remove the peripheral cortex. The posterior capsule is polished. The intraocular lens is selected, inspected, power confirmed, and pl aced in the posterior chamber. The pupil was constricted with Miostat.. The wound was stromally hydrated and tested for leaks, there was none and it was left sutureless. Vigamox 0.1 cc was placed into the anterior chamber. Kenalog 0.2 cc was placed in the superior subconjunctival space. A drop of antibiotic and was placed and the eye was patched and shielded. The patient was stable and returned to the recovery room in excellent condition. Dictated by: Jess Davis MD Copy to: [facility]
[2018-12-24 14:34] VITALS: BP 149/90; PULSE 54; RESP 15; TEMP 36.3; O2SAT 96; BMI 30.2
[2018-12-24] MEDS: PROPARACAINE 0.5% OPHTH SOL 2 DROPS EYE-OP (14:36)
[2018-12-24] MEDS: CATARACT EYE COMPOUND (10 DROPS/SYRINGE) 3 DROPS EYE-OP (14:41)
[2018-12-24 14:55] VITALS: BP 118/63; PULSE 73; RESP 15; TEMP 36.1; O2SAT 100
--- NOTE | 2018-12-24 15:25 | SUR.OPER ---
Supine on eye stretcher, head on extension cradle secured with tape. Arms tucked at sides with blanket. Pillow under knees.
[2018-12-24] MEDS: LIDOCAINE 1% W/EPI INJ 20 ML INJ (15:30)
[2018-12-24] MEDS: LIDOCAINE 2% 4 ML, BUPIVACAINE 0.5% (PF) 4 ML, HYALURONIDASE 150 UNIT INJ (15:31)
[2018-12-24] MEDS: MOXIFLOXACIN OPHTH DROPS 3 ML BOTTLE 2 DROPS INJ ×2 (15:32)
[2018-12-24] MEDS: TRIAMCINOLONE 50 MG/5 ML VIAL INJ (15:33)
[2018-12-24] MEDS: CHONDROIDTIN/SOD HYALURONATE 1.05 ML SYRINGE INTRAOCULA (15:33)
[2018-12-24] MEDS: NEOMYCIN/POLY/DEX OPHTH OINT 1 APPLIC EYE-RIGHT (15:34)
[2018-12-24] MEDS: HYALURONATE SODIUM 10 MG/ML SYRINGE INJ ×2 (15:34)
[2018-12-24] MEDS: BALANCED SALT IRRIG SOLN NO.2 500 ML, EPINEPHrine 1 MG IRR (15:36)
[2018-12-24] MEDS: OFLOXACIN 0.3% OPHTH 5 ML 2 DROPS EYE-RIGHT (15:36)
[2018-12-24 15:48] VITALS: BP 147/91; PULSE 53; RESP 16; TEMP 36.7; O2SAT 96
== END 2018-12-24 16:10 | disposition home or self-care (01) ==
LOC: OR 14:20
PROVIDERS: PCP Family Medicine; Visit Provider Ophthalmology
PROC: (CPT 66984; principal; 2018-12-24 15:15)
DX: H25.811 Combined forms of age-related cataract, right eye (principal); I10 Essential (primary) hypertension
CPT/HCPCS: 66984; J0171; J2250; J2704; J3010; J3301; J3470

== ENCOUNTER → 2019-01-16 13:48 | Outpatient (CLI) | payer OTHER, SELFPAY ==
--- NOTE | 2019-01-16 13:49 | DI.US.S_ITS ---
PROCEDURE: US ABDOMEN COMPLETE INDICATIONS: History of hepatitis C virus infection TECHNIQUE: Real-time scanning was performed of the abdominal and retroperitoneal organs, with image documentation. COMPARISON: [facility], , US ABDOMEN COMPLETE, 07/30/2018, 12:34. FINDINGS: Liver: Liver measures 16.5 cm in length. Liver demonstrates nodular appearance and heterogeneous echotexture. No definite focal hepatic lesion identified. Gallbladder: Gallbladder unremarkable. However the fundus was not well seen secondary to shadowing bowel gas. No wall thickening or sonographic Guevara sign seen Biliary ducts: Intrahepatic bile ducts are non-dilated. Extrahepatic bile duct caliber measures 5-6 mm. Normal is 6-7 mm or less in diameter, or 10 mm or less post-cholecystectomy. Pancreas: Visualized portions of the pancreas are sonographically normal. Spleen: Spleen is enlarged measuring 15.6 cm. There are adjacent varices. Kidneys: Kidneys are normal in size and echotexture. Right kidney measures 12.3 cm long; left kidney measures 11.5 cm long. No hydronephrosis or nephrolithiasis. No solid masses. Aorta: Visualized aorta is normal in caliber at less than 3 cm. Iliacs: Proximal common iliac arteries are normal in caliber at less than 2.5 cm. IVC: Intrahepatic inferior vena cava is patent. Miscellaneous: No free abdominal fluid. IMPRESSION: Coarse echogenic liver suggesting diffuse hepatocellular disease/fatty infiltration. Please correlate with LFTs. Splenomegaly as before. Dictated by: Lance Marquez M.D. on 01/16/2019 at 15:12 Approved by: Lance Marquez M.D. on 01/16/2019 at 15:14
[2019-01-16 15:23] LABS: Add Manual Diff / Slide Review NO; Basophils Absolute Auto 0 /uL (0-100); Basophils Percent Auto 0.5 % (0-2); Eosinophils Absolute Auto 0 /uL (0-450); Eosinophils Percent Auto 0.9 % (2-4); Hematocrit 45.8 % (41-53); Hemoglobin 15.3 g/dL (13.5-17.5); Lymphocytes Absolute Auto 1100 /uL (1100-4500); Lymphocytes Percent Auto 27.2 % (25-40); Mean Corpuscular HGB Conc 33.3 % (30-36); Mean Corpuscular Hemoglobin 32.1 PG (26-34); Mean Corpuscular Volume 96.5 fL (80-100); Monocytes Absolute Auto 400 /uL (0-900); Monocytes Percent Auto 9.8 % (3-14); Neutrophils Absolute Auto 2400 /uL (1500-7000); Neutrophils Percent Auto 61.6 % (50-75); Platelet Count 93 X10^3/uL (150-400); Red Blood Cell Count 4.75 X10^6/uL (4.5-5.9); Red Cell Distribution Width 15.3 % (11.6-14.8); White Blood Cell Count 3.9 X10^3/uL (4.5-11.0)
[2019-01-16 16:18] LABS: Free T3, Triiodothyronine Free 3.62 pg/mL (2.77-5.27); Free T4, Direct Thyroxine 1.13 ng/dL (0.78-2.19)
[2019-01-16 16:27] LABS: Alanine Aminotransferase 17 IU/L (21-72); Albumin 4.3 g/dL (3.5-5.0); Albumin Globulin Ratio 1.4 (1.0-2.8); Alkaline Phosphatase 30 U/L (38-126); Aspartate Aminotransferase 20 IU/L (17-59); BUN Creatinine Ratio 13.3 (6-22); Blood Urea Nitrogen 12 mg/dL (9-20); Calcium 9.5 mg/dL (8.4-10.2); Carbon Dioxide 30 mmol/L (22-32); Chloride 102 mmol/L (98-107); Estimated Glomerular Filt Rate > 60.0 mL/min (>60); Globulin 3.1 g/dL (1.7-4.1); Glucose 103 mg/dL (80-110); HEMOLYSIS < 15 (0-50); Potassium 4.3 mmol/L (3.4-5.1); Sodium 140 mmol/L (137-145); Total Protein 7.4 g/dL (6.3-8.2)
[2019-01-16 16:32] LABS: Prostate Specific Antigen Scrn 0.221 ng/mL (0.1-4.0); Thyroid Stimulating Hormone 1.06 uIU/mL (0.47-4.68)
[2019-01-20 15:28] LABS: Alpha Fetoprotein 7.6 ng/mL (< 6.1)
== END ==
PROVIDERS: Family Medicine; PCP Family Medicine; Visit Provider Family Medicine
DX: R16.1 Splenomegaly, not elsewhere classified (principal); Z86.19 Personal history of other infectious and parasitic diseases; E03.9 Hypothyroidism, unspecified; I10 Essential (primary) hypertension; Z12.5 Encounter for screening for malignant neoplasm of prostate; Z51.81 Encounter for therapeutic drug level monitoring
CPT/HCPCS: 36415; 76700; 80053; 82105; 82140; 84439; 84443; 84481; 85025; G0103

== ENCOUNTER → 2019-04-09 09:10 | Outpatient (CLI) | payer OTHER, SELFPAY | PROVIDERS: PCP Family Medicine; Visit Provider Family Medicine | DX: E11.8 Type 2 diabetes mellitus with unspecified complications (principal); G62.1 Alcoholic polyneuropathy; Z86.19 Personal history of other infectious and parasitic diseases | CPT/HCPCS: 36415; 82140 ==

== ENCOUNTER → 2019-04-27 12:20 | Outpatient (CLI) | payer OTHER, SELFPAY ==
[2019-04-27 13:59] LABS: Alanine Aminotransferase 20 IU/L (<50); Albumin 4.6 g/dL (3.5-5.0); Albumin Globulin Ratio 1.7 (1.0-2.8); Alkaline Phosphatase 37 U/L (38-126); Aspartate Aminotransferase 24 IU/L (17-59); Bilirubin Total 0.8 mg/dL (0.2-1.3); Bilirubin Unconjugated 0.6 mg/dL (0.0-1.1); Globulin 2.7 g/dL (1.7-4.1); HEMOLYSIS < 15 (0-50); Total Protein 7.3 g/dL (6.3-8.2)
[2019-05-01 15:58] LABS: Alpha Fetoprotein 7.8 ng/mL (< 6.1)
== END ==
PROVIDERS: PCP Family Medicine; Visit Provider Family Medicine
DX: Z86.19 Personal history of other infectious and parasitic diseases (principal)
CPT/HCPCS: 36415; 80076; 82105

== ENCOUNTER → 2019-06-20 12:37 | Outpatient (CLI) | payer OTHER, SELFPAY ==
[2019-06-20 13:04] LABS: Hemoglobin A1C% w Est Avg Glu 5.3 % (4.0-6.0)
== END ==
PROVIDERS: PCP Family Medicine; Visit Provider Family Medicine
DX: E11.8 Type 2 diabetes mellitus with unspecified complications (principal); G62.1 Alcoholic polyneuropathy
CPT/HCPCS: 36415; 82140; 83036

== ENCOUNTER → 2019-08-25 12:33 | Outpatient (CLI) | payer OTHER, SELFPAY ==
[2019-08-25 13:36] LABS: Add Manual Diff / Slide Review NO; Basophils Absolute Auto 0 /uL (0-100); Basophils Percent Auto 0.4 % (0-2); Eosinophils Absolute Auto 100 /uL (0-450); Hematocrit 44.7 % (41-53); Lymphocytes Absolute Auto 1400 /uL (1100-4500); Lymphocytes Percent Auto 30.1 % (25-40); Mean Corpuscular HGB Conc 33.5 % (30-36); Mean Corpuscular Hemoglobin 30.9 PG (26-34); Mean Corpuscular Volume 92.2 fL (80-100); Monocytes Absolute Auto 400 /uL (0-900); Monocytes Percent Auto 8.4 % (3-14); Neutrophils Absolute Auto 2700 /uL (1500-7000); Neutrophils Percent Auto 59.1 % (50-75); Platelet Count 96 X10^3/uL (150-400); Red Blood Cell Count 4.84 X10^6/uL (4.5-5.9); Red Cell Distribution Width 14.8 % (11.6-14.8); White Blood Cell Count 4.5 X10^3/uL (4.5-11.0)
[2019-08-25 13:58] LABS: Hemoglobin A1C% w Est Avg Glu 5.5 % (4.0-6.0)
[2019-08-25 14:11] LABS: Alanine Aminotransferase 32 IU/L (<50); Albumin 4.4 g/dL (3.5-5.0); Albumin Globulin Ratio 1.4 (1.0-2.8); Alkaline Phosphatase 33 U/L (38-126); Aspartate Aminotransferase 31 IU/L (17-59); BUN Creatinine Ratio 14.1 (6-22); Bilirubin Total 0.8 mg/dL (0.2-1.3); Blood Urea Nitrogen 14 mg/dL (9-20); Calcium 9.5 mg/dL (8.4-10.2); Carbon Dioxide 33 mmol/L (22-32); Chloride 101 mmol/L (98-107); Cholesterol 183 mg/dL (140-199); Estimated Glomerular Filt Rate > 60.0 mL/min (>60); Globulin 3.2 g/dL (1.7-4.1); Glucose 101 mg/dL (80-110); HDL Cholesterol 56 mg/dL (40-60); HEMOLYSIS < 15 (0-50); LDL Cholesterol Calculated 98 mg/dL (<100); Potassium 4.2 mmol/L (3.4-5.1); Sodium 139 mmol/L (137-145); Total Protein 7.6 g/dL (6.3-8.2); Triglycerides 144 mg/dL (35-150)
[2019-08-25 14:12] LABS: Alanine Aminotransferase 31 IU/L (<50); Albumin 4.5 g/dL (3.5-5.0); Albumin Globulin Ratio 1.4 (1.0-2.8); Alkaline Phosphatase 32 U/L (38-126); Aspartate Aminotransferase 32 IU/L (17-59); Bilirubin Total 0.8 mg/dL (0.2-1.3); Bilirubin Unconjugated 0.8 mg/dL (0.0-1.1); Globulin 3.2 g/dL (1.7-4.1); HEMOLYSIS < 15 (0-50); Total Protein 7.7 g/dL (6.3-8.2)
== END ==
PROVIDERS: Student in an Organized Health Care Education/Training Program; PCP Family Medicine; Referring Provider Family Medicine; Visit Provider Family Medicine
DX: Z86.19 Personal history of other infectious and parasitic diseases (principal); E03.9 Hypothyroidism, unspecified; E11.8 Type 2 diabetes mellitus with unspecified complications; I10 Essential (primary) hypertension
CPT/HCPCS: 36415; 80053; 80061; 80076; 82105; 83036; 85025

== ENCOUNTER → 2019-12-14 16:38 | Outpatient (CLI) | payer OTHER, SELFPAY ==
[2019-12-14 17:36] LABS: Ammonia (NH3) 37 umol/L (9-30)
[2019-12-15 07:08] LABS: Alpha Fetoprotein 7.5 ng/mL (0.0-8.3)
== END ==
PROVIDERS: PCP Family Medicine; Referring Provider Family Medicine; Visit Provider Family Medicine
DX: G93.40 Encephalopathy, unspecified (principal); K74.60 Unspecified cirrhosis of liver; Z86.19 Personal history of other infectious and parasitic diseases
CPT/HCPCS: 36415; 82105; 82140

== ENCOUNTER → 2020-01-28 14:05 | Outpatient (CLI) | payer OTHER, SELFPAY ==
--- NOTE | 2020-01-28 14:06 | DI.US.S_ITS ---
PROCEDURE: US ABDOMEN COMPLETE INDICATIONS: ABNORMAL PAST ULTRASOUND TECHNIQUE: Real-time scanning was performed of the abdominal and retroperitoneal organs, with image documentation. COMPARISON: [facility], US, ABDOMEN COMPLETE, 02/28/2017, 12:21. [facility], US, US ABDOMEN COMPLETE, 01/16/2019, 14:03. [facility], US, US ABDOMEN COMPLETE, 07/30/2018, 12:34. [facility], US, ABDOMEN LIMITED, 07/31/2017, 10:59. FINDINGS: Liver: The liver demonstrates a heterogeneous, nodular appearance. The liver demonstrates normal size. Gallbladder: No findings of gallstones or sludge are seen. The gallbladder wall is not thickened, measuring 3 mm or less. No specific pericholecystic fluid is seen. The sonographic Guevara sign is negative. Biliary ducts: Intrahepatic bile ducts are non-dilated. Extrahepatic bile duct caliber measures 5.5 mm. Normal is 6-7 mm or less in diameter, or 10 mm or less post-cholecystectomy. Pancreas: Visualized portions of the pancreas are sonographically normal. Spleen: Splenic varices are seen. The spleen is enlarged measuring 15.2 cm. Kidneys: Kidneys are normal in size and echotexture. Right kidney measures 12.3 cm long; left kidney measures 12.2 cm long. No hydronephrosis or nephrolithiasis. No solid masses. Aorta: Visualized aorta is normal in caliber at less than 3 cm. Iliacs: Proximal common iliac arteries are normal in caliber at less than 2.5 cm. IVC: Intrahepatic inferior vena cava is patent. Miscellaneous: No free abdominal fluid. IMPRESSION: Cirrhotic liver with associated splenomegaly and perisplenic varices. Dictated by: Pankaj Huitron M.D. on 01/28/2020 at 14:21 Approved by: Pankaj Huitron M.D. on 01/28/2020 at 14:23
== END ==
PROVIDERS: PCP Family Medicine; Referring Provider Family Medicine; Visit Provider Family Medicine
DX: R93.5 Abnormal findings on diagnostic imaging of other abdominal regions, including retroperitoneum (principal); K74.60 Unspecified cirrhosis of liver; R16.1 Splenomegaly, not elsewhere classified; I86.8 Varicose veins of other specified sites; Z86.19 Personal history of other infectious and parasitic diseases
CPT/HCPCS: 76700

== ENCOUNTER → 2020-03-11 12:10 | Outpatient (CLI) | payer OTHER, SELFPAY ==
[2020-03-11 12:42] LABS: Add Manual Diff / Slide Review NO; Basophils Absolute Auto 0 /uL (0-100); Basophils Percent Auto 0.5 % (0-2); Eosinophils Absolute Auto 100 /uL (0-450); Eosinophils Percent Auto 1.6 % (2-4); Hematocrit 45.5 % (41-53); Hemoglobin 15.6 g/dL (13.5-17.5); Lymphocytes Absolute Auto 1500 /uL (1100-4500); Lymphocytes Percent Auto 26.7 % (25-40); Mean Corpuscular HGB Conc 34.2 % (30-36); Mean Corpuscular Hemoglobin 32.3 PG (26-34); Mean Corpuscular Volume 94.4 fL (80-100); Monocytes Absolute Auto 600 /uL (0-900); Monocytes Percent Auto 10.3 % (3-14); Neutrophils Absolute Auto 3400 /uL (1500-7000); Neutrophils Percent Auto 60.9 % (50-75); Platelet Count 105 X10^3/uL (150-400); Red Blood Cell Count 4.82 X10^6/uL (4.5-5.9); Red Cell Distribution Width 14.2 % (11.6-14.8); White Blood Cell Count 5.7 X10^3/uL (4.5-11.0)
[2020-03-11 12:48] LABS: HEMOLYSIS < 15 (0-50)
[2020-03-11 12:56] LABS: Alanine Aminotransferase 19 IU/L (<50); Albumin 4.4 g/dL (3.5-5.0); Albumin Globulin Ratio 1.4 (1.0-2.8); Alkaline Phosphatase 33 U/L (38-126); Aspartate Aminotransferase 26 IU/L (17-59); BUN Creatinine Ratio 18.2 (6-22); Bilirubin Total 0.8 mg/dL (0.2-1.3); Blood Urea Nitrogen 22 mg/dL (9-20); Calcium 9.2 mg/dL (8.4-10.2); Carbon Dioxide 31 mmol/L (22-32); Chloride 97 mmol/L (98-107); Cholesterol 157 mg/dL (140-199); Estimated Glomerular Filt Rate > 60.0 mL/min (>60); Globulin 3.2 g/dL (1.7-4.1); Glucose 106 mg/dL (80-110); HDL Cholesterol 37 mg/dL (40-60); LDL Cholesterol Calculated 90 mg/dL (<100); Potassium 3.8 mmol/L (3.4-5.1); Sodium 137 mmol/L (137-145); Total Protein 7.6 g/dL (6.3-8.2); Triglycerides 152 mg/dL (35-150)
[2020-03-11 12:57] LABS: Hemoglobin A1C% w Est Avg Glu 5.6 % (4.0-6.0)
== END ==
PROVIDERS: PCP Family Medicine; Referring Provider Family Medicine; Visit Provider Family Medicine
DX: E11.42 Type 2 diabetes mellitus with diabetic polyneuropathy (principal); I10 Essential (primary) hypertension; K74.60 Unspecified cirrhosis of liver; E03.9 Hypothyroidism, unspecified; Z12.5 Encounter for screening for malignant neoplasm of prostate
CPT/HCPCS: 80053; 80061; 83036; 84153; 85025

== ENCOUNTER 2020-10-07 18:02 | Observation (INO) | payer OTHER, SELFPAY ==
[2020-10-07] VITALS (33 sets, daily range): BP systolic 92–169; BP diastolic 55–112; PULSE 54–120; RESP 12–29; TEMP 36.6; O2SAT 94–98; BMI 32.5
[2020-10-07 18:30] LABS: Add Manual Diff / Slide Review NO; Basophils Absolute Auto 0 /uL (0-100); Basophils Percent Auto 0.5 % (0-2); Eosinophils Absolute Auto 100 /uL (0-450); Eosinophils Percent Auto 0.8 % (2-4); Hematocrit 44.8 % (41-53); Hemoglobin 15.4 g/dL (13.5-17.5); Lymphocytes Absolute Auto 1100 /uL (1100-4500); Lymphocytes Percent Auto 14.8 % (25-40); Mean Corpuscular HGB Conc 34.4 % (30-36); Mean Corpuscular Hemoglobin 32.7 PG (26-34); Mean Corpuscular Volume 94.9 fL (80-100); Monocytes Absolute Auto 600 /uL (0-900); Neutrophils Absolute Auto 5300 /uL (1500-7000); Neutrophils Percent Auto 74.9 % (50-75); Platelet Count 121 X10^3/uL (150-400); Red Blood Cell Count 4.72 X10^6/uL (4.5-5.9); Red Cell Distribution Width 14.6 % (11.6-14.8); White Blood Cell Count 7.1 X10^3/uL (4.5-11.0)
[2020-10-07] MEDS: dilTIAZem 5 MG/ML SDV 20 MG IV (18:40)
[2020-10-07 18:57] LABS: Alanine Aminotransferase 23 IU/L (<50); Albumin 4.6 g/dL (3.5-5.0); Albumin Globulin Ratio 1.4 (1.0-2.8); Alkaline Phosphatase 42 U/L (38-126); Aspartate Aminotransferase 27 IU/L (17-59); BUN Creatinine Ratio 14.2 (6-22); Bilirubin Total 0.7 mg/dL (0.2-1.3); Blood Urea Nitrogen 16 mg/dL (9-20); Calcium 9.9 mg/dL (8.4-10.2); Carbon Dioxide 30 mmol/L (22-32); Chloride 98 mmol/L (98-107); Creatine Kinase 72 U/L (55-170); Estimated Glomerular Filt Rate > 60.0 mL/min (>60); Globulin 3.2 g/dL (1.7-4.1); Glucose 124 mg/dL (80-110); HEMOLYSIS < 15 (0-50); Magnesium 1.8 mg/dL (1.6-2.3); Potassium 4.2 mmol/L (3.4-5.1); Sodium 138 mmol/L (137-145); Total Protein 7.8 g/dL (6.3-8.2)
--- NOTE | 2020-10-07 18:58 | ED_ITS ---
HPI - Chest Pain General Chief Complaint: Chest Pain Stated Complaint: HEART PALPITATIONS Time Seen by Provider: 10/07/20 18:04 Source: patient Mode of arrival: Ambulatory Limitations: no limitations History of Present Illness HPI narrative: 64M former smoker with history of HTN, Stroke, alcohol dependence presents with palpitations and a racing heart for the past few days. He denies CP or significant SOB. He denies any new medications or dietary change. He denies any history of AFib. He's had no fever or chills. He denies any dizziness or lightheadedness. He's certain it's been going on since at least saturday. He is otherwise well and free of complaint MD complaint: other Onset (ago): day(s) Duration: constant Related Data Home Medications Medication Instructions Recorded Confirmed diazepam 5 mg PO DAILY PRN 10/07/20 10/07/20 lactulose [Constulose] 15 ml PO DAILY PRN 10/07/20 10/07/20 levothyroxine 112 mcg PO DAILY 10/07/20 10/07/20 lisinopril 20 mg PO BID 10/07/20 10/07/20 nadolol [Corgard] 40 mg PO BEDTIME 10/07/20 10/07/20 omeprazole 40 mg PO DAILY PRN 10/07/20 10/07/20 oxycodone 5 mg PO Q8HR PRN 10/07/20 10/07/20 Previous Rx's Medication Instructions Recorded One Touch Verio Meter #1 ea 08/14/18 One touch verio test strips #100 each 07/22/19 hydrochlorothiazide 12.5 mg tablet 12.5 mg PO DAILY #30 tab 05/31/20 bupropion HCl 150 mg tablet,12 hr 150 mg PO BID #180 tab 06/23/20 sustained-release triamcinolone acetonide 0.1 % 1 applic TOPICAL BID PRN #30 g 07/27/20 topical cream Allergies Allergy/AdvReac Type Severity Reaction Status Date / Time paroxetine [From Paxil] Allergy Intermediate Confusion Verified 10/07/20 18:12 pregabalin [From Lyrica] Allergy bloating, Verified 10/07/20 18:12 confusion, anxiety, short tempered buspirone AdvReac Intermediate I DIDN'T Verified 10/07/20 18:12 LIKE HOW IT MADE ME FEEL - HORRIBLE FEELING citalopram AdvReac Mild NAUSEA Verified 10/07/20 18:12 HAYFEVER Allergy Mild RUNNY NOSE Uncoded 10/07/20 18:12 & ITCHY WATERY EYES Review of Systems Constitutional Constitutional: Denies chills, Denies fatigue, Denies fever(s), Denies frequent falls, Denies lethargy and Denies weakness Eyes Eyes: Denies change in vision, Denies eye discharge, Denies irritation and Denies loss of vision ENT Ears, Nose, Mouth, and Throat: Denies change in voice, Denies dizziness, Denies neck pain, Denies sore throat and Denies throat swelling Cardiovascular Cardiovascular: Denies chest pain, Reports irregular heart rhythm, Denies lightheadedness, Reports palpitations, Denies dyspnea, Denies dyspnea on exertion and Denies orthopnea Respiratory Respiratory: Denies cough, Denies dyspnea, Denies dyspnea on exertion and Denies wheezing Gastrointestinal Gastrointestinal: Denies abdominal pain, Denies change in bowel habits, Denies diarrhea, Denies nausea and Denies vomiting Musculoskeletal Musculoskeletal: Denies neck pain and Denies numbness Integumentary/Breasts Skin/Breast: Denies pruritus, Denies erythema, Denies rash and Denies wounds Neurologic Neurologic: Denies behavioral changes, Denies confusion, Denies dizziness, Denies frequent falls, Denies loss of vision, Denies numbness and Denies weakness Psychiatric Psychiatric: Denies anxiety, Denies behavioral changes, Denies confusion, Denies depression, Denies homicidal ideation and Denies suicidal ideation Endocrine Endocrine: Denies fatigue, Denies flushing and Reports palpitations Hematologic/Lymphatic Hematologic/Lymphatic: Denies easy bruising Allergic/Immunologic Allergic/Immunologic: Denies urticaria, Denies throat swelling and Denies wh eezing Patient History Medical History Alcohol dependence (Unknown) Anxiety (Unknown) Orellana's esophagus Chronic pain syndrome (Unknown) Cirrhosis (Unknown) Colon polyps (Unknown) Depression (Unknown) 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) Fatigue History of hepatitis C (~2014) Hypertension (Unknown) Hypothyroidism (Unknown) Screening for prostate cancer Type 2 diabetes mellitus with peripheral neuropathy Surgical History History of hernia surgery History of knee surgery Family History Father Heart disease Mother Hx of breast cancer Social History household members: family Smoking Status: Former smoker Tobacco: How many years used: 21 alcohol intake: former Smoking Status: Former smoker alcohol intake frequency: other Substance Use Type: does not use Exam Narrative Exam Narrative: GENERAL: [64] year old patient appears stated age. Well- nourished, well-developed patient, in mild distress. HEAD: Atraumatic. Normocephalic. EYES: Pupils equal round and reactive. Extraocular motions intact. No scleral icterus. No injection or drainage. ENT: Nose without bleeding, purulent drainage. Throat without erythema, tonsillar hypertrophy or exudate. Airway patent. NECK: Trachea midline. Non tender CARDIOVASCULAR: Tachycardic and irregular rhythm without murmurs, gallops, or rubs. RESPIRATORY: Clear to auscultation. Breath sounds equal bilaterally. No wheezes, rales, or rhonchi. GASTROINTESTINAL: Abdomen soft, non-tender, nondistended. EXTREMITIES: No edema or joint tenderness. BACK: Nontender without deformity or crepitance. No flank tenderness. NEURO: AOx3. 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) Stat 10/07/20 19:25 XR chest 1V Stat Acetaminophen (Acetaminophen 325 Mg Tablet) 650 mg PO Q6HR PRN PRN Reason: Fever Aspirin (Aspirin Ec 325 Mg Tablet) 325 mg PO DAILY FCO Dextrose (Dextrose 50 % In Water 25 Gm/50 Ml Syringe) 25 gm IV PRN PRN PRN Reason: Hypoglycemia Diltiazem HCl (Diltiazem 30 Mg Tablet) 30 mg PO Q6HR [facility] Last Admin: 10/07/20 23:55 Dose: 30 mg Documented by: Admin: 10/07/20 20:46 Dose: Not Given Documented by: TRUPTI Enoxaparin Sodium (Enoxaparin 40 Mg/0.4 Ml Syringe) 40 mg SUBCUT DAILY [facility] Diltiazem HCl 125 mg/ Sodium (Chloride) 125 mls @ 5 mls/hr IV TITRATE [facility]; Protocol Last Titration: 10/07/20 20:55 Dose: 0 mg/hr, 0 mls/hr Documented by: Admin: 10/07/20 19:02 Dose: 5 mg/hr, 5 mls/hr Documented by: CARY Insulin Human Lispro (Insulin Lispro 100 Unit/Ml 3ml Vial) 0 unit SUBCUT ACHS [facility]; Protocol Last Admin: 10/07/20 21:00 Dose: Not Given Documented by: TRUPTI Morphine Sulfate (Morphine 2 Mg/Ml Inj) 2 mg IV Q5MIN PRN PRN Reason: Chest Pain Naloxone HCl (Naloxone 0.4 Mg/Ml Vial) 0.2 mg IV Q2MIN PRN PRN Reason: Opiate Reversal Nitroglycerin (Nitroglycerin 0.4 Mg Sl Tab) 0.4 mg SL [id number] PRN PRN Reason: Chest Pain Pantoprazole Sodium (Pantoprazole 40 Mg Tablet) 40 mg PO 0700 [facility] Discontinued Medications Diazepam (Diazepam 5 Mg Tablet) 5 mg PO NOW ONE Stop: 10/07/20 22:01 Last Admin: 10/07/20 22:18 Dose: 5 mg Documented by: TRUPTI Diltiazem HCl (Diltiazem 5 Mg/Ml Sdv) 20 mg IV NOW ONE Stop: 10/07/20 18:31 Last Admin: 10/07/20 18:40 Dose: 20 mg Documented by: CARY Furosemide (Furosemide 40 Mg/4 Ml Vial) 40 mg IV NOW ONE Stop: 10/07/20 19:24 Last Admin: 10/07/20 19:53 Dose: 40 mg Documented by: DESIRE Reevaluation(s) Reevaluation #1: Patient had heart rate decreased from 140s to 90s after diltiazem push, drip then ordered. Consultations Consultation #1: Hospitalist happy to accept Vital Signs Vital signs: Vital Signs - 8 hr 10/07/20 18:40 10/07/20 18:56 10/07/20 19:00 Pulse Rate 104 H 71 61 Respiratory Rate 17 12 Blood Pressure 138/88 111/76 Pulse Oximetry 95 95 10/07/20 19:01 10/07/20 19:02 10/07/20 19:05 Pulse Rate 71 72 66 Respiratory Rate 27 H 15 Blood Pressure 116/81 116/81 Pulse Oximetry 94 95 10/07/20 19:10 10/07/20 19:15 10/07/20 19:16 Pulse Rate 80 88 82 Respiratory Rate 17 18 23 Blood Pressure 115/67 Pulse Oximetry 95 95 94 10/07/20 19:20 10/07/20 19:21 10/07/20 19:25 Pulse Rate 69 64 72 Respiratory Rate 20 22 15 Blood Pressure 119/55 L Pulse Oximetry 95 94 94 10/07/20 19:26 Pulse Rate 68 Respiratory Rate 20 Blood Pressure 103/64 Pulse Oximetry 95 MDM - Chest Pain Lab Data Result diagrams: 10/07/20 18:20 10/07/20 18:20 Labs: Lab Results 10/07/20 10/07/20 10/07/20 Range/Units 18:20 18:20 18:20 WBC 7.1 (4.5-11.0) X10^3/uL RBC 4.72 (4.5-5.9) X10^6/uL Hgb 15.4 (13.5-17.5) g/dL Hct 44.8 (41-53) % MCV 94.9 (80-100) fL MCH 32.7 (26-34) PG MCHC 34.4 (30-36) % RDW 14.6 (11.6-14.8) % Plt Count 121 L (150-400) X10^3/uL Neut % (Auto) 74.9 (50-75) % Lymph % (Auto) 14.8 L (25-40) % [place] % (Auto) 9.0 (3-14) % Eos % (Auto) 0.8 L (2-4) % Baso % (Auto) 0.5 (0-2) % Neut # (Auto) 5300 (2124-9954) /uL Lymph # (Auto) 1100 (9570-7178) /uL [place] # (Auto) 600 (0-900) /uL Eos # (Auto) 100 (0-450) /uL Baso # (Auto) 0 (0-100) /uL D-Dimer (<230) ng/mL Sodium 138 (137-145) mmol/L Potassium 4.2 (3.4-5.1) mmol/L Chloride 98 (98-107) mmol/L Carbon Dioxide 30 (22-32) mmol/L BUN 16 (9-20) mg/dL Creatinine 1.13 (0.66-1.25) mg/dL Estimated GFR > 60.0 (>60) mL/min BUN/Creatinine Ratio 14.2 (6-22) Glucose 124 H (80-110) mg/dL Hemoglobin A1c (4.0-6.0) % Calcium 9.9 (8.4-10.2) mg/dL Magnesium 1.8 1.8 (1.6-2.3) mg/dL Total Bilirubin 0.7 (0.2-1.3) mg/dL AST 27 (17-59) IU/L ALT 23 (<50) IU/L Alkaline Phosphatase 42 (38-126) U/L Total Creatine Kinase 72 (55-170) U/L CK-MB (CK-2) TNP CK-MB (CK-2) Rel Index TNP Troponin I < 0.012 (0.01-0.034) ng/mL NT-Pro-B Natriuret Pep 4720 H (<125) pg/mL Total Protein 7.8 (6.3-8.2) g/dL Albumin 4.6 (3.5-5.0) g/dL Globulin 3.2 (1.7-4.1) g/dL Albumin/Globulin Ratio 1.4 (1.0-2.8) TSH (0.47-4.68) uIU/mL SARS-CoV-2 (PCR) (Negative) 10/07/20 10/07/20 10/07/20 Range/Units 18:20 18:20 18:20 WBC (4.5-11.0) X10^3/uL RBC (4.5-5.9) X10^6/uL Hgb (13.5-17.5) g/dL Hct (41-53) % MCV (80-100) fL MCH (26-34) PG MCHC (30-36) % RDW (11.6-14.8) % Plt Count (150-400) X10^3/uL Neut % (Auto) (50-75) % Lymph % (Auto) (25-40) % [place] % (Auto) (3-14) % Eos % (Auto) (2-4) % Baso % (Auto) (0-2) % Neut # (Auto) (4256-8380) /uL Lymph # (Auto) (3474-4489) /uL [place] # (Auto) (0-900) /uL Eos # (Auto) (0-450) /uL Baso # (Auto) (0-100) /uL D-Dimer < 200 (<230) ng/mL Sodium (137-145) mmol/L Potassium (3.4-5.1) mmol/L Chloride (98-107) mmol/L Carbon Dioxide (22-32) mmol/L BUN (9-20) mg/dL Creatinine (0.66-1.25) mg/dL Estimated GFR (>60) mL/min BUN/Creatinine Ratio (6-22) Glucose (80-110) mg/dL Hemoglobin A1c 5.6 (4.0-6.0) % Calcium (8.4-10.2) mg/dL Magnesium (1.6-2.3) mg/dL Total Bilirubin (0.2-1.3) mg/dL AST (17-59) IU/L ALT (<50) IU/L Alkaline Phosphatase (38-126) U/L Total Creatine Kinase (55-170) U/L CK-MB (CK-2) CK-MB (CK-2) Rel Index Troponin I (0.01-0.034) ng/mL NT-Pro-B Natriuret Pep (<125) pg/mL Total Protein (6.3-8.2) g/dL Albumin (3.5-5.0) g/dL Globulin (1.7-4.1) g/dL Albumin/Globulin Ratio (1.0-2.8) TSH 1.21 (0.47-4.68) uIU/mL SARS-CoV-2 (PCR) (Negative) 10/07/20 Range/Units 18:42 WBC (4.5-11.0) X10^3/uL RBC (4.5-5.9) X10^6/uL Hgb (13.5-17.5) g/dL Hct (41-53) % MCV (80-100) fL MCH (26-34) PG MCHC (30-36) % RDW (11.6-14.8) % Plt Count (150-400) X10^3/uL Neut % (Auto) (50-75) % Lymph % (Auto) (25-40) % [place] % (Auto) (3-14) % Eos % (Auto) (2-4) % Baso % (Auto) (0-2) % Neut # (Auto) (2133-1597) /uL Lymph # (Auto) (3747-8455) /uL [place] # (Auto) (0-900) /uL Eos # (Auto) (0-450) /uL Baso # (Auto) (0-100) /uL D-Dimer (<230) ng/mL Sodium (137-145) mmol/L Potassium (3.4-5.1) mmol/L Chloride (98-107) mmol/L Carbon Dioxide (22-32) mmol/L BUN (9-20) mg/dL Creatinine (0.66-1.25) mg/dL Estimated GFR (>60) mL/min BUN/Creatinine Ratio (6-22) Glucose (80-110) mg/dL Hemoglobin A1c (4.0-6.0) % Calcium (8.4-10.2) mg/dL Magnesium (1.6-2.3) mg/dL Total Bilirubin (0.2-1.3) mg/dL AST (17-59) IU/L ALT (<50) IU/L Alkaline Phosphatase (38-126) U/L Total Creatine Kinase (55-170) U/L CK-MB (CK-2) CK-MB (CK-2) Rel Index Troponin I (0.01-0.034) ng/mL NT-Pro-B Natriuret Pep (<125) pg/mL Total Protein (6.3-8.2) g/dL Albumin (3.5-5.0) g/dL Globulin (1.7-4.1) g/dL Albumin/Globulin Ratio (1.0-2.8) TSH (0.47-4.68) uIU/mL SARS-CoV-2 (PCR) Negative (Negative) MDM Narrative Medical decision making narrative: Patient with a newly discovered rapid AFib that has been present for the past few days. He is not in extremities, demonstrates no ischemic change on EKG and is not anticoagulated, therefore is not a candidate for cardioversion. He is rate controlled appropriately and admitted for stabilization of his condition Discharge Plan Departure Patient Disposition: Admitted as Observation Clinical Impression: Atrial fibrillation with rapid ventricular response Admit Date/Time: 10/07/20 19:27 Admit Provider: Tonya Mckenzie
[2020-10-07] MEDS: dilTIAZem 125 MG in SODIUM CHLORIDE 0.9% 100 ML IV (19:02)
[2020-10-07 19:09] LABS: NT-proBNP (BNP-Adult 18+) 4720 pg/mL (<125); Troponin I < 0.012 ng/mL (0.01-0.034)
--- NOTE | 2020-10-07 19:25 | DI.RAD.S_ITS ---
PROCEDURE: XR CHEST 1V INDICATIONS: new onset AFib TECHNIQUE: One view of the chest was acquired. COMPARISON: [facility], CR, XR CHEST 1V, 06/25/2018, 13:44. FINDINGS: Surgical changes and devices: None. Mildly increased retrocardiac opacity. No pleural effusions or pneumothorax. Mediastinum: Mediastinal contours appear normal. Heart size is normal. Bones and chest wall: No suspicious bony lesions. Overlying soft tissues appear unremarkable. IMPRESSION: Mildly increased retrocardiac opacity which could reflect aspiration atelectasis , scarring or pneumonia. If there is persistent clinical diagnostic uncertainty, continued surveillance with short interval radiographic followup after treatment is recommended. Dictated by: Lance Marquez M.D. on 10/07/2020 at 19:51 Approved by: Lance Marquez M.D. on 10/07/2020 at 19:53
--- NOTE | 2020-10-07 19:40 | DI.ECHO.S_ITS ---
[facility]---------[facility] +---------+ : : [address] : : : : [id number] : : : : Phone: [phone] Echocardiogram Report + + :Name: JOSEPH DUKE Study Date: 10/08/2020 Height: 74 in : :[facility] ReadingLocation: Weight: 240 lb : : Gender: Male BSA: 2.3 m2 : :: 1955 Age: 64 yrs BP: 140/88 mmHg: :Reason For Study: CHEST PAIN, PALPITATIONS, AFIB WITH RVR : :Ordering Physician: ANDERSON, : :YAMILET Performed By: Nadiya Cho : :Referring: YAMILET BARRON : + + Interpretation Summary The patient was in atrial fibrillation with heart rates between 69-82 bpm during the exam. The left ventricle is normal in size and wall thickness. The ejection fraction is estimated to be 55-60%. The right ventricle is borderline dilated. The right ventricular systolic function is normal. No significant valvular pathology seen. The IVC is of normal diameter and collapses greater than 50% with a sniff. This suggests a low right atrial pressure of 3 mm Hg. Procedure: A two-dimensional transthoracic echocardiogram with color flow and Doppler was performed. The study quality was technically adequate. There is no prior echocardiogram noted for this patient. The patient was in atrial fibrillation with heart rates between 69-82 bpm during the exam. Left Ventricle: The left ventricle is normal in size and wall thickness. There is no thrombus. The ejection fraction is estimated to be 55-60%. There are no focal wall motion abnormalities. Diastolic function could not be accurately assessed due to atrial fibrillation. Right Ventricle: The right ventricle is borderline dilated. The right ventricular systolic function is normal. Atria: The left atrium is mildly dilated. Right atrial size is normal. There is no Doppler evidence for an interatrial shunt. Mitral Valve: The mitral valve is normal in structure and function. There is trace mitral regurgitation. Aortic Valve: The aortic valve is trileaflet. The aortic valve opens well. The aortic valve is slightly calcified. There is no aortic valve stenosis. No aortic regurgitation is present. Tricuspid Valve: The tricuspid valve is normal in structure and function. There is trace tricuspid regurgitation. Pulmonary artery pressures cannot be estimated because of the lack of a measurable TR jet velocity but the IVC suggests a CVP of around 23 mmHg. Pulmonic Valve: The pulmonic valve is not well seen, but is grossly normal. There is no pulmonic valvular regurgitation. Great Vessels: The aortic root is normal size. The ascending aorta is at the upper limits of normal in size. The IVC is of normal diameter and collapses greater than 50% with a sniff. This suggests a low right atrial pressure of 3 mm Hg. Pericardium/ Pleura There is no pericardial effusion. There is no pleural effusion. MMode/2D Measurements & Calculations LVIDd: 5.0 cm LVOT diam: 2.0 cm LVIDs: 3.6 cm Ao root diam: 3.3 cm FS: 27.6 % asc Aorta Diam: 3.5 cm EPSS: 0.52 cm Ao Arch Diam (Prox Trans): 2.9 cm IVSd: 1.00 cm LVPWd: 1.1 cm LV shrestha. diameter/BSA (cm/m^2): 2.1 LV sys. diameter/BSA (cm/m^2): 1.5 LA A2 area: 28.1 cm2 RA long axis: 5.7 cm LA A4 area: 24.1 cm2 RA area: 17.9 cm2 LA length (vol): 6.2 cm RA vol: 47.6 ml LA vol: 93.5 ml RA : 20.3 ml/m2 LA vol index: 39.8 ml/m2 IVC diam: 2.0 cm RVD1 (basal): 3.5 cm TAPSE: 1.9 cm Doppler Measurements & Calculations Ao V2 max: 101.0 cm/sec LVOT Max Bill: 90.8 cm/sec Ao V2 mean: 70.8 cm/sec LV V1 max P.3 mmHg Ao max P.1 mmHg LV V1 VTI: 16.8 cm Ao mean P.3 mmHg BRANDIE(I,D): 2.8 cm2 Ao V2 VTI: 19.1 cm BARNDIE(V,D): 2.9 cm2 sev ratio: 0.88 BRANDIE indexed to BSA (cm^2/m^2): 1.2 MV E max bill: 91.5 cm/sec TR max bill: 227.2 cm/sec MV A max bill: 1.3 cm/sec TR max P.7 mmHg MV E/A: 71.3 PA V2 max: 56.9 cm/sec Med Peak E' Bill: 8.5 cm/sec PA V2 mean: 41.5 cm/sec E/E' med: 10.7 PA mean P.76 mmHg Lat Peak E' Bill: 13.7 cm/sec PA pr(Accel): 43.0 mmHg E/E' lat: 6.7 E/e' average: 8.7 MV dec time: 0.14 sec SV(LVOT): 53.7 ml Reading Physician:01:39 PM
[2020-10-07 19:43] LABS: COVID19 - ADMIT (NP swab/PCR) Negative (Negative)
--- NOTE | 2020-10-07 19:47 | P.HP_ITS ---
History of Present Illness History of Present Illness Date Patient Seen: 10/07/20 Time Patient Seen: 19:48 Chief complaint: HEART PALPITATIONS Narrative: Patient is a 64-year-old male Mayra Aguayo who presented to the ED with a chief complaint of palpitations for the past couple of days, and mild acid reflux symptoms. 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 Patient denies pain, shortness of breath, fever, body aches, chills, difficulty with balance, coordination, changes in vision, headache, swelling of hands or feet. The patient states that he has no previous history of a diagnosis of atrial fibrillation, approximately 20 years ago he was admitted to the hospital for a fast heart rate that required no follow-up, the patient has never had an echo or stress test, negative for hyperlipidemia. Patient states that the rapid palpitations has been going on for approximately 4 days he had no other symptoms with the palpitations, and notes he could walk approximately a quarter of a mile without shortness of breath. Patient states that he began to have worsening abdominal pain and bloating with decreased appetite with the onset of these palpitations, but denies nausea vomiting diarrhea. Patient was to complete an EGD and colonoscopy for his chronic Orellana's esophagus. Patient states he feels like he is constipated but had a small BM this morning, denies blood in urine stool or oral secretion. Patient does complain of anxiety 8/10, but denies depression symptoms or suicidal ideation. Patient demonstrated new onset atrial fibrillation with RVR in the ED department patient was not a candidate for cardioversion, medication cardioversion was attempted with push was unsuccessful patient was started on a Cardizem drip currently at 5 milligram/hour. PCP: Dr. Hills Patient's vitals upon admit: Temp 97.8?, BP 116/81, HR 80, RR 17, O2 saturation 95% on room air. Patient's labs: CBC was unremarkable other than a platelet count of 121, CMP also unremarkable other than a glucose of 124. Patient did have a positive proBNP of 4720. Patient will be admitted to the ICU on a Cardizem drip for palpitations/chest pain new onset atrial fibrillation with RVR. Chads Vasc score: 2 Patient History Medical History Alcohol dependence (Unknown) Anxiety (Unknown) Orellana's esophagus Chronic pain syndrome (Unknown) Cirrhosis (Unknown) Colon polyps (Unknown) Depression (Unknown) 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) Fatigue History of hepatitis C (~2014) Hypertension (Unknown) Hypothyroidism (Unknown) Screening for prostate cancer Type 2 diabetes mellitus with peripheral neuropathy Surgical History (Updated 10/07/20 @ 22:42 by JEFFREY Milton-ANN-MARIE) History of hernia surgery History of knee surgery Family & Social History Family History Father Heart disease Mother Hx of breast cancer Social History: household members patient lives with his sisters since his mother , and is permanent disabled and no longer works Safety & Behavioral: Feels Safe in Current Yes Environment Been Physically Hurt or No Threatened By a Person Tobacco & Substance use: Smoking Status Former smoker, smoked for 21 years alcohol intake former dependence, states occasional drinking now alcohol intake frequency other Substance Use Type 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 Meds Home Medications and Allergies Home Medications Medication Instructions Recorded Confirmed Type One Touch Verio Meter #1 ea 08/14/18 03/17/20 Rx One touch verio test strips #100 each 07/22/19 03/17/20 Rx hydrochlorothiazide 12.5 mg tablet 12.5 mg PO DAILY #30 tab 05/31/20 Rx bupropion HCl 150 mg tablet,12 hr 150 mg PO BID #180 tab 06/23/20 Rx sustained-release triamcinolone acetonide 0.1 % 1 applic TOPICAL BID PRN #30 g 07/27/20 Rx topical cream diazepam 5 mg PO DAILY PRN 10/07/20 10/07/20 History lactulose [Constulose] 15 ml PO DAILY PRN 10/07/20 10/07/20 History levothyroxine 112 mcg PO DAILY 10/07/20 10/07/20 History lisinopril 20 mg PO BID 10/07/20 10/07/20 History nadolol [Corgard] 40 mg PO BEDTIME 10/07/20 10/07/20 History omeprazole 40 mg PO DAILY PRN 10/07/20 10/07/20 History oxycodone 5 mg PO Q8HR PRN 10/07/20 10/07/20 History Allergies Allergy/AdvReac Type Severity Reaction Status Date / Time paroxetine [From Paxil] Allergy Intermediate Confusion Verified 10/07/20 18:12 pregabalin [From Lyrica] Allergy bloating, Verified 10/07/20 18:12 confusion, anxiety, short tempered buspirone AdvReac Intermediate I DIDN'T Verified 10/07/20 18:12 LIKE HOW IT MADE ME FEEL - HORRIBLE FEELING citalopram AdvReac Mild NAUSEA Verified 10/07/20 18:12 HAYFEVER Allergy Mild RUNNY NOSE Uncoded 10/07/20 18:12 & ITCHY WATERY EYES Review of Systems Review of Systems ROS: Yes All systems reviewed with the patient and are negative except as otherwise documented Psychiatric Psychiatric: Reports anxiety Exam Vital Signs (past 8 hours): - 10/07/20 18:09 10/07/20 18:25 10/07/20 18:30 Temperature 97.8 F Pulse Rate 61 110 H 120 H Respiratory Rate 17 21 19 Blood Pressure 169/112 H Pulse Oximetry 97 98 97 10/07/20 18:40 10/07/20 18:56 10/07/20 19:00 Temperature Pulse Rate 104 H 71 61 Respiratory Rate 17 12 Blood Pressure 138/88 111/76 Pulse Oximetry 95 95 10/07/20 19:01 10/07/20 19:02 10/07/20 19:05 Temperature Pulse Rate 71 72 66 Respiratory Rate 27 H 15 Blood Pressure 116/81 116/81 Pulse Oximetry 94 95 10/07/20 19:10 10/07/20 19:15 10/07/20 19:16 Temperature Pulse Rate 80 88 82 Respiratory Rate 17 18 23 Blood Pressure 115/67 Pulse Oximetry 95 95 94 10/07/20 19:20 10/07/20 19:21 10/07/20 19:25 Temperature Pulse Rate 69 64 72 Respiratory Rate 20 22 15 Blood Pressure 119/55 L Pulse Oximetry 95 94 94 10/07/20 19:26 10/07/20 19:30 10/07/20 19:35 Temperature Pulse Rate 68 56 L 54 L Respiratory Rate 20 17 23 Blood Pressure 103/64 105/73 Pulse Oximetry 95 94 95 10/07/20 19:36 Temperature Pulse Rate 57 L Respiratory Rate 20 Blood Pressure 100/58 L Pulse Oximetry 94 Oxygen Delivery Method Room Air Narrative Exam Narrative: General: Patient is a well-developed, well-nourished in no distress at this time. HEENT: Normocephalic, atraumatic, extraocular muscles intact, oral pharynx is clear and mucous membranes are moist. Neck is supple and symmetric, trachea is midline, no adenopathy, no thyroid enlargement, nontender, no masses palpated. Negative for JVD Chest: Normal AP diameter and contour without kyphoscoliosis, no nasal flaring, retractions, or tachypneic labored Lungs: Auscultation of all lung pace are clear without adventitious sounds, wheezes, rhonchi, or rales. Cardio: irregular rate and rhythm without murmur, rubs, or gallops, no carotid bruit, no cardiac pulsations present. Abdomen: Soft nontender, negative for organomegaly, or masses. Bowel sounds are present in all 4 quadrants without guarding or rebound, no CVA tenderness. Musculoskeletal: Muscle strength and tone are equal within normal limits, no deformity, crepitus, effusions, cyanosis, clubbing or edema present. Full range of motion intact radial and pedal pulses are normal. Skin: Warm dry and intact without rashes, ulcerations or petechiae. Neuro: Alert and orientated x3, strength is +5/5 in all extremities, sensation to touch intact, no gross deficits noted of cranial nerves. Psych: Patient has a well-kept appearance, appropriate affect, mental status attitude thought context and judgment are appropriate for age. Objective Labs Result Diagrams: 10/07/20 18:20 10/07/20 18:20 Labs: Laboratory Results - last 24 hr 10/07/20 10/07/20 10/07/20 18:20 18:20 18:42 WBC 7.1 RBC 4.72 Hgb 15.4 Hct 44.8 MCV 94.9 MCH 32.7 MCHC 34.4 RDW 14.6 Plt Count 121 L Neut % (Auto) 74.9 Lymph % (Auto) 14.8 L Webb % (Auto) 9.0 Eos % (Auto) 0.8 L Baso % (Auto) 0.5 Neut # (Auto) 5300 Lymph # (Auto) 1100 Webb # (Auto) 600 Eos # (Auto) 100 Baso # (Auto) 0 Sodium 138 Potassium 4.2 Chloride 98 Carbon Dioxide 30 BUN 16 Creatinine 1.13 Estimated GFR > 60.0 BUN/Creatinine Ratio 14.2 Glucose 124 H Calcium 9.9 Magnesium 1.8 Total Bilirubin 0.7 AST 27 ALT 23 Alkaline Phosphatase 42 Total Creatine Kinase 72 CK-MB (CK-2) TNP CK-MB (CK-2) Rel Index TNP Troponin I < 0.012 NT-Pro-B Natriuret Pep 4720 H Total Protein 7.8 Albumin 4.6 Globulin 3.2 Albumin/Globulin Ratio 1.4 SARS-CoV-2 (PCR) Negative Assessment & Plan Assessment & Plan narrative: This patient requires acute care inpatient hospital management for new onset atrial fibrillation with RVR, after failing outpatient management. 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 These factors increase the difficulty and complexity of medical and surgical interventions and increases the chances of poor outcomes such as morbidity and mortality such as tachycardia-mediated cardiomyopathy. 1. Acute palpitations as a result of new onset atrial fibrillation with RVR, acute, present on admission -likely new atrial fibrillation exacerbation in the setting of possible new diagnosis of congestive heart failure exacerbation. Brought on by the patient's previous history of alcohol, tobacco and substance abuse coupled with essential hypertension and diabetes type 2. No previous echo noted in patient's family practice charts, reviewed last [facility] Practice notes from 03/2020. Patient's vitals upon admit: Temp 97.8?, BP 116/81, HR 80, RR 17, O2 saturation 95% on room air. Patient's labs: CBC was unremarkable other than a platelet count of 121, CMP also unremarkable other than a glucose of 124. Patient did have a positive proBNP of 4720. Patient will be admitted to the ICU on a Cardizem drip for palpitations/chest pain new onset atrial fibrillation with RVR. Chads Vasc score: 2 -Rule out myocardial ischemia, ACS, CAD, aortic dissection -Differential diagnosis PACs, atrial flutter, multifocal atrial tachycardia sinus tachycardia, sinus arrhythmia, SVT, WPW syndrome, and V-tach -indications for admit for new onset atrial fibrillation patients who ablation of accessory pathway is being considered, severe bradycardia after cardioversion, treatment for comorbidities that may have caused the new AF, elderly patients, and further manifestations of heart failure or hypertension after control rhythm and rate.. -evaluate for cardiac, pulmonary, metabolic, drugs, neurogenic, sepsis, malignancy. -factors hypertension, age, diabetes, cardiac disease, sleep apnea, male, Cau casian, rheumatic heart disease-prior history of stroke, cardiac disease, or COPD -AFib that is not anticoagulated when it should be according to the CHA2 DS1- Vasc score has a high risk of embolic stroke -Diltiazem drip 5mg/hr started in ED following failed cardizem push for rate control. -drip was stopped once patient arrived on the floor due to a BP dropped to 92/68, HR 77-Closely monitor blood pressure and heart rate while on Diltiazem drip. Hold drip if systolic blood pressure< 90 or heart rate is< 60. Once heart rate is maintained less than 100 begin oral Diltiazem regimen starting at 30 mg every 6 hours, taper and discontinue infusion 2 hours after 2nd oral dose. In patients with advanced heart failure or significant hypotension consider digoxin as initial therapy - if discharged on Coumadin education on INR/diet and follow-up -labs BMP, CBC, trending troponins x3 q.6 hours, TSH, monitor electrolytes and supplement as indicated keep potassium> 4, magnesium> 2 Diagnostics: EKG:, chest x-ray:, Consider TTE -to look for LA size, a thrombosis in LA, valves, EF and pericardium, echo -monitor for complications stroke, heart failure, dementia -Continuous tele monitoring and echo, and stress test ordered for tomorrow -sublingual nitro glycerin 0.4 mg, aspirin 325 mg -patient placed on Lovenox 40 mg to transition to Coumadin upon discharge. Reasons to avoid NOAC's at this time: history of alcohol dependence, alcoholic cirrhosis, Orellana's esophagus high risk for bleeding/variceal bleeding. HAS- BLED Score: 2 moderate risk of major bleeding PERC score:No -PE cannot be ruled out, Greyson Vasc score: 2 (2.2%). Monitor for hypertensive emergencies with acute end-organ damage, ventricular tachycardia, unstable SVT, hypertension, angina or MN, heart failure, renal function. Greyson Vasc score: - Goals: reducing blood pressure over 24-48 hours, not more than 25-30% in the 1st 24 hours. O2 to keep O2 sats greater than 92% potassium > 4 and Mag > 2 2. Essential hypertension, chronic, not present on admission, well controlled, secondary to alcoholic cirrhosis from alcohol dependence in the setting of type 2 diabetes. -will hold patient's lisinopril and HCTZ due to hypotension at this time. 3. Alcoholic cirrhosis, chronic, due to alcohol dependence, chronic, in remission, likely resulting in Orellana's esophagus, chronic, and exacerbated by history of hepatitis C., resolved, not present on admission -continue patient's lactulose -recommend patient follow-up with GI for EGD and colonoscopy 4. History of Non insulin-dependent type 2 diabetes with peripheral neuropathy, chronic, not present on admission, controlled -patient denied history of diabetes, although documented in his family practice notes as of March of 2020, patient is on no medications and A1c on admit is 5.6% -patient placed on diabetes protocol, low-dose sliding scale for blood sugar control -blood sugar 124 on admission 5. Hypothyroidism, chronic, not present on admission, control unknown -continue patient's levothyroxine, TSH ordered 6. Depression with anxiety, acute on chronic, present on admission -anxiety 8/10, depression 0/10, patient denies suicidal ideation -continue patient's bupropion and diazepam Code status: Full code Surrogate decision maker: COVKARAN PCR: Negative VTE/DVT prophylaxis: Lovenox 40 mg and SCDs Scores GCS Stephanie coma scale eye opening: Spontaneous [place] coma scale verbal response: Orientated Stephanie coma scale motor response: Obey commands Stephanie coma scale total score: 15 CHADS-VASc Congestive heart failure: no Hypertension: yes Age 75 years or older: no Diabetes mellitus: yes Stroke, TIA, or TE: no Vascular disease: no Age 65 to 74 years: no Sex category (female): Male CHADS-VASc Score: 2 Wells' Criteria for PE Clinical signs and symptoms of DVT: No PE is #1 Dx or equally likely: No Heart rate > 100: No Immobilization at least 3 days or surg in previous 4 weeks: No History of PE or DVT: No Hemoptysis: No Malignancy w/Treatment within 6 months or palliative: No Wells' PE Score total: 0
[2020-10-07] MEDS: FUROSEMIDE 40 MG/4 ML VIAL IV (19:53)
[2020-10-07 20:32] LABS: Magnesium 1.8 mg/dL (1.6-2.3)
[2020-10-07 20:53] LABS: Hemoglobin A1C% w Est Avg Glu 5.6 % (4.0-6.0)
[2020-10-07 21:14] LABS: Troponin I < 0.012 ng/mL (0.01-0.034)
[2020-10-07 21:32] LABS: TSH w/ Reflex to FT4 1.21 uIU/mL (0.47-4.68)
[2020-10-07 21:57] LABS: D Dimer < 200 ng/mL (<230)
[2020-10-07] MEDS: diazePAM 5 MG TABLET PO (22:18)
--- NOTE | 2020-10-07 22:39 | PC.NURSE ---
20:30 pt arrived to rm 231 per stretcher from ED with diltiazem gtt in progress @ 5mg/hr. Pt HR in the 50's -low 60's, diltiazem paused. notified and PO diltiazem dose held. Admission assessment completed, concerns addressed.
[2020-10-07] MEDS: dilTIAZem 30 MG TABLET PO (23:55)
[2020-10-08] VITALS (7 sets, daily range): BP systolic 123–140; BP diastolic 77–88; PULSE 63–94; RESP 16–24; TEMP 36.2–36.6; O2SAT 94–98
[2020-10-08 03:54] LABS: Add Manual Diff / Slide Review NO; Basophils Absolute Auto 0 /uL (0-100); Basophils Percent Auto 0.5 % (0-2); Eosinophils Absolute Auto 0 /uL (0-450); Eosinophils Percent Auto 0.8 % (2-4); Hematocrit 42.8 % (41-53); Hemoglobin 14.5 g/dL (13.5-17.5); Lymphocytes Absolute Auto 1300 /uL (1100-4500); Lymphocytes Percent Auto 24.3 % (25-40); Mean Corpuscular HGB Conc 33.9 % (30-36); Mean Corpuscular Volume 94.4 fL (80-100); Monocytes Absolute Auto 500 /uL (0-900); Monocytes Percent Auto 9.2 % (3-14); Neutrophils Absolute Auto 3500 /uL (1500-7000); Neutrophils Percent Auto 65.2 % (50-75); Platelet Count 89 X10^3/uL (150-400); Red Blood Cell Count 4.53 X10^6/uL (4.5-5.9); Red Cell Distribution Width 14.7 % (11.6-14.8); White Blood Cell Count 5.3 X10^3/uL (4.5-11.0)
[2020-10-08 04:09] LABS: Alanine Aminotransferase 20 IU/L (<50); Albumin 3.9 g/dL (3.5-5.0); Albumin Globulin Ratio 1.3 (1.0-2.8); Alkaline Phosphatase 30 U/L (38-126); Aspartate Aminotransferase 24 IU/L (17-59); BUN Creatinine Ratio 15.7 (6-22); Bilirubin Total 0.6 mg/dL (0.2-1.3); Blood Urea Nitrogen 16 mg/dL (9-20); Calcium 9.3 mg/dL (8.4-10.2); Carbon Dioxide 31 mmol/L (22-32); Chloride 98 mmol/L (98-107); Estimated Glomerular Filt Rate > 60.0 mL/min (>60); Globulin 2.9 g/dL (1.7-4.1); Glucose 106 mg/dL (80-110); HEMOLYSIS < 15 (0-50); Potassium 3.8 mmol/L (3.4-5.1); Sodium 136 mmol/L (137-145); Total Protein 6.8 g/dL (6.3-8.2)
[2020-10-08 04:14] LABS: Troponin I < 0.012 ng/mL (0.01-0.034)
[2020-10-08 04:17] LABS: NT-proBNP (BNP-Adult 18+) 3500 pg/mL (<125)
[2020-10-08 05:50] LABS: Cholesterol 156 mg/dL (140-199)
[2020-10-08] MEDS: PANTOPRAZOLE 40 MG TABLET PO (06:19)
[2020-10-08] MEDS: dilTIAZem 30 MG TABLET PO (06:19)
[2020-10-08] MEDS: LEVOTHYROXINE 112 MCG TABLET PO (06:20)
[2020-10-08] MEDS: lisinopriL 20 MG TABLET PO (08:59)
[2020-10-08] MEDS: hydroCHLOROthiazide 25 MG TABLET 12.5 MG PO (08:59)
[2020-10-08] MEDS: diazePAM 5 MG TABLET PO (09:00)
[2020-10-08] MEDS: APIXABAN 5 MG TABLET PO (09:00)
--- NOTE | 2020-10-08 09:12 | CM.DANOTE ---
DCP: Case received, EMR reviewed and met with patient. Introduced self and role. Was able to obtain information from patient regarding his baseline activity status prior to hospitalization, as well as his current living situation. DCP assessment completed with information currently available. Patient is a 64 year old male who admitted yesterday evening to the care of the hospitalist team. PCP: Dr. Evans. Payer: confirmed: [facility]. Patient came to the hospital via private vehicle secondary to having some heart palpitations. Patient was newly diagnosed with a-fib with RVR. Patient is getting IV Diltiazem in ICU. Patient has history of alcohol dependence, which is now in remission, as well as cirrhosis and history of hepatitis C. Met with patient in his room. He was having some anxiety, nurse, Amanda, was in the room. He was sitting up in bed, alert and oriented. He resides here in [place], and is disabled. He is currently residing with his sister. He stated that he is currently driving, confirmed that his primary provider is Dr. Evans. Confirmed that he does have Vasquez as well. He is independent as far as his mobility. P: Patient has discharge orders for home today. He may most likely be discharged on a blood thinner as well. Patricia Hobbs, RN/Methods Time Analyst
[2020-10-08] MEDS: buPROPion SR 150 MG TAB PO (10:03)
[2020-10-08] MEDS: dilTIAZem CD 120 MG CAP PO (12:55)
--- NOTE | 2020-10-08 15:18 | PC.NURSE ---
Discharge Note: Pt given discharge instructions on diltiazem, eliquis, new onset atrial-fibrillation, stroke symptoms, diet and exercise, as well as follow-up appointments with pt's PCP and referral to cardiology. Questions answered. Pt's iv and telemetry removed. Pt taken to front entrance via wheelchair and discharged to private vehicle. Pt had paper copies of prescriptions at discharge. Pt discharged without incidence.
--- NOTE | 2020-10-08 16:39 | PM.DS.1 ---
History of Present Illness History of Present Illness Chief complaint: HEART PALPITATIONS Narrative: Darren Goodson and P from Tonya Mckenzie: Patient is a 64-year-old male Mayra Aguayo who presented to the ED with a chief complaint of palpitations for the past couple of days, and mild acid reflux symptoms. 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 Patient denies pain, shortness of breath, fever, body aches, chills, difficulty with balance, coordination, changes in vision, headache, swelling of hands or feet. The patient states that he has no previous history of a diagnosis of atrial fibrillation, approximately 20 years ago he was admitted to the hospital for a fast heart rate that required no follow-up, the patient has never had an echo or stress test, negative for hyperlipidemia. Patient states that the rapid palpitations has been going on for approximately 4 days he had no other symptoms with the palpitations, and notes he could walk approximately a quarter of a mile without shortness of breath. Patient states that he began to have worsening abdominal pain and bloating with decreased appetite with the onset of these palpitations, but denies nausea vomiting diarrhea. Patient was to complete an EGD and colonoscopy for his chronic Orellana's esophagus. Patient states he feels like he is constipated but had a small BM this morning, denies blood in urine stool or oral secretion. Patient does complain of anxiety 8/10, but denies depression symptoms or suicidal ideation. Patient demonstrated new onset atrial fibrillation with RVR in the ED department patient was not a candidate for cardioversion, medication cardioversion was attempted with push was unsuccessful patient was started on a Cardizem drip currently at 5 milligram/hour. PCP: Dr. Hills Patient's vitals upon admit: Temp 97.8?, BP 116/81, HR 80, RR 17, O2 saturation 95% on room air. Patient's labs: CBC was unremarkable other than a platelet count of 121, CMP also unremarkable other than a glucose of 124. Patient did have a positive proBNP of 4720. Patient will be admitted to the ICU on a Cardizem drip for palpitations/chest pain new onset atrial fibrillation with RVR. Chads Vasc score: 2 Discharge Providers Provider Date of admission: 10/07/20 19:27 Discharge Date: 10/08/20 Primary care physician: Rodolfo Evans, DO Discharge provider: Reed Shepard MD Summary Hospital Course Discharge Diagnosis: 1. New onset atrial fibrillation with RVR 2. Hypertension 3. Alcoholic/hepatitic C cirrhosis 4. Type 2 Diabetes with peripheral neuropathy 5. Hypothyroidism 6. Depression with anxiety 7. Hypothyroidism 8. Thrombocytopenia Hospital Course: Mr. Aguayo came in with palpitations. He was found to be in new onset afib with RVR. He initially had diltiazem boluses follow by a diltiazem drip which helped bring his rate to normal. He remained in atrial fibrillation. He had an ECHO done that showed a normal EF of 55-60%. He was transitioned over to oral diltiazem and his heart rate and blood pressure remained under control. He was recommended to start on anticoagulation for atrial fibrillation to reduce the risk of strokes. He was given a prescription for apixaban. He has chronic thrombocytopenia, but no significant history of bleeding, and he was concerned about possible risk of bleeding given his low platelets. I did mention that it was my recommendation to start the medication, but he was considering discussing this with his primary care physician. He was interested in possible cardioversion or ablation in the future so he was referred to see cardiology as an outpatient. The rest of his medical issues were stable. Code: Full Status at Discharge Cognitive/behavioral status at discharge: oriented Functional status at discharge: independent ambulation Overall status at discharge: patient is progressing back to baseline Time Spent with Patient Time spent: Less than 30 minutes Exam Vital Signs (past 8 hours): - 10/08/20 08:59 10/08/20 11:00 Temperature 97.6 F Pulse Rate 63 Respiratory Rate 18 Blood Pressure 127/84 123/80 Pulse Oximetry 94 Oxygen Delivery Method Room Air Oxygen Flow Rate 0 Narrative Exam Narrative: General: no acute distress HEENT: PERRL, moist mucous membranes, negative for JVD Lungs: clear bilaterally with no wheezes, rhonchi, or rales. Cardio: irregular, with no murmurs Abdomen: Soft nontender, no organomegaly, or masses. normal bowel sounds Musculoskeletal: muscle strength equal in normal limits Skin: Warm dry and intact without rashes, ulcerations or petechiae. Neuro: Alert and orientated x3, strength is +5/5 in all extremities Psych: pleasant, cooperative Objective Labs Result Diagrams: 10/08/20 03:40 10/08/20 03:40 Labs: Laboratory Results - last 24 hr 10/07/20 10/07/20 10/07/20 18:20 18:20 18:20 WBC 7.1 RBC 4.72 Hgb 15.4 Hct 44.8 MCV 94.9 MCH 32.7 MCHC 34.4 RDW 14.6 Plt Count 121 L Neut % (Auto) 74.9 Lymph % (Auto) 14.8 L Edmonson % (Auto) 9.0 Eos % (Auto) 0.8 L Baso % (Auto) 0.5 Neut # (Auto) 5300 Lymph # (Auto) 1100 Edmonson # (Auto) 600 Eos # (Auto) 100 Baso # (Auto) 0 D-Dimer Sodium 138 Potassium 4.2 Chloride 98 Carbon Dioxide 30 BUN 16 Creatinine 1.13 Estimated GFR > 60.0 BUN/Creatinine Ratio 14.2 Glucose 124 H Hemoglobin A1c Calcium 9.9 Magnesium 1.8 1.8 Total Bilirubin 0.7 AST 27 ALT 23 Alkaline Phosphatase 42 Total Creatine Kinase 72 CK-MB (CK-2) TNP CK-MB (CK-2) Rel Index TNP Troponin I < 0.012 NT-Pro-B Natriuret Pep 4720 H Total Protein 7.8 Albumin 4.6 Globulin 3.2 Albumin/Globulin Ratio 1.4 Cholesterol TSH Nasal Screen MRSA (PCR) SARS-CoV-2 (PCR) 10/07/20 10/07/20 10/07/20 18:20 18:20 18:20 WBC RBC Hgb Hct MCV MCH MCHC RDW Plt Count Neut % (Auto) Lymph % (Auto) Edmonson % (Auto) Eos % (Auto) Baso % (Auto) Neut # (Auto) Lymph # (Auto) Edmonson # (Auto) Eos # (Auto) Baso # (Auto) D-Dimer < 200 Sodium Potassium Chloride Carbon Dioxide BUN Creatinine Estimated GFR BUN/Creatinine Ratio Glucose Hemoglobin A1c 5.6 Calcium Magnesium Total Bilirubin AST ALT Alkaline Phosphatase Total Creatine Kinase CK-MB (CK-2) CK-MB (CK-2) Rel Index Troponin I NT-Pro-B Natriuret Pep Total Protein Albumin Globulin Albumin/Globulin Ratio Cholesterol TSH 1.21 Nasal Screen MRSA (PCR) SARS-CoV-2 (PCR) 0410/07/20 10/07/20 18:42 20:30 20:35 WBC RBC Hgb Hct MCV MCH MCHC RDW Plt Count Neut % (Auto) Lymph % (Auto) Edmonson % (Auto) Eos % (Auto) Baso % (Auto) Neut # (Auto) Lymph # (Auto) Edmonson # (Auto) Eos # (Auto) Baso # (Auto) D-Dimer Sodium Potassium Chloride Carbon Dioxide BUN Creatinine Estimated GFR BUN/Creatinine Ratio Glucose Hemoglobin A1c Calcium Magnesium Total Bilirubin AST ALT Alkaline Phosphatase Total Creatine Kinase CK-MB (CK-2) CK-MB (CK-2) Rel Index Troponin I < 0.012 NT-Pro-B Natriuret Pep Total Protein Albumin Globulin Albumin/Globulin Ratio Cholesterol TSH Nasal Screen MRSA (PCR) Negative for mrsa SARS-CoV-2 (PCR) Negative 10/08/20 10/08/20 10/08/20 03:40 03:40 03:40 WBC 5.3 RBC 4.53 Hgb 14.5 Hct 42.8 MCV 94.4 MCH 32.0 MCHC 33.9 RDW 14.7 Plt Count 89 L Neut % (Auto) 65.2 Lymph % (Auto) 24.3 L Edmonson % (Auto) 9.2 Eos % (Auto) 0.8 L Baso % (Auto) 0.5 Neut # (Auto) 3500 Lymph # (Auto) 1300 Edmonson # (Auto) 500 Eos # (Auto) 0 Baso # (Auto) 0 D-Dimer Sodium 136 L Potassium 3.8 Chloride 98 Carbon Dioxide 31 BUN 16 Creatinine 1.02 Estimated GFR > 60.0 BUN/Creatinine Ratio 15.7 Glucose 106 Hemoglobin A1c Calcium 9.3 Magnesium Total Bilirubin 0.6 AST 24 ALT 20 Alkaline Phosphatase 30 L Total Creatine Kinase CK-MB (CK-2) CK-MB (CK-2) Rel Index Troponin I < 0.012 NT-Pro-B Natriuret Pep Total Protein 6.8 Albumin 3.9 Globulin 2.9 Albumin/Globulin Ratio 1.3 Cholesterol TSH Nasal Screen MRSA (PCR) SARS-CoV-2 (PCR) 10/08/20 10/08/20 03:40 03:40 WBC RBC Hgb Hct MCV MCH MCHC RDW Plt Count Neut % (Auto) Lymph % (Auto) Edmonson % (Auto) Eos % (Auto) Baso % (Auto) Neut # (Auto) Lymph # (Auto) Edmonson # (Auto) Eos # (Auto) Baso # (Auto) D-Dimer Sodium Potassium Chloride Carbon Dioxide BUN Creatinine Estimated GFR BUN/Creatinine Ratio Glucose Hemoglobin A1c Calcium Magnesium Total Bilirubin AST ALT Alkaline Phosphatase Total Creatine Kinase CK-MB (CK-2) CK-MB (CK-2) Rel Index Troponin I NT-Pro-B Natriuret Pep 3500 H Total Protein Albumin Globulin Albumin/Globulin Ratio Cholesterol 156 TSH Nasal Screen MRSA (PCR) SARS-CoV-2 (PCR) PFSH Medical History Alcohol dependence (Unknown) Anxiety (Unknown) Orellana's esophagus Chronic pain syndrome (Unknown) Cirrhosis (Unknown) Colon polyps (Unknown) Depression (Unknown) 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) Fatigue History of hepatitis C (~2014) Hypertension (Unknown) Hypothyroidism (Unknown) Screening for prostate cancer Type 2 diabetes mellitus with peripheral neuropathy Surgical History History of hernia surgery History of knee surgery Family History Father Heart disease Mother Hx of breast cancer Social History household members: family Smoking Status: Former smoker Tobacco: How many years used: 21 alcohol intake: former Discharge Plan Discharge Plan Patient Disposition: Home Provider Discharge Comment: Mr. Aguayo came in to the hospital with palpitations and was found to have a fast heart rate. He was found to be in an abnormal rhythm called atrial fibrillation. The fast heart rate improved with medications, and he remained in atrial fibrillation at a slower rate. He had no evidence of any heart attack. To decrease his risk of strokes and clots from atrial fibrillation he was started on a blood thinner apixaban. He was started on diltiazem to help control his heart rate. He should follow up with his PCP and see a clerk stenographer to consider possible procedures to fix his atrial fibrillation. As he has chronically low platelets he is understandably hesitant a blood thinner, and I did encourage him to ask for second opinion regarding apixaban. Discharge orders & Medications Prescriptions: New apixaban 5 mg tablet 5 mg PO BID Qty: 60 RF: 0 diltiazem HCl [Cardizem CD] 120 mg capsule,extended release 24hr 120 mg PO DAILY Qty: 30 RF: 0 Continued hydrochlorothiazide 12.5 mg tablet 12.5 mg PO DAILY Qty: 30 RF: 5 bupropion HCl [Wellbutrin SR] 150 mg tablet sustained-release 12 hr 150 mg PO BID Qty: 180 RF: 0 triamcinolone acetonide [Triderm] 0.1 % cream 1 applic Topical BID PRN (Reason: unknown) Qty: 30 RF: 0 omeprazole 40 mg capsule,delayed release(DR/EC) 40 mg PO DAILY PRN (Reason: Heartburn) RF: 0 nadolol [Corgard] 40 mg tablet 40 mg PO BEDTIME RF: 0 lisinopril 40 mg tablet 20 mg PO BID RF: 0 diazepam 5 mg tablet 5 mg PO DAILY PRN (Reason: Anxiety) RF: 0 levothyroxine 112 mcg tablet 112 mcg PO DAILY RF: 0 oxycodone 5 mg tablet 5 mg PO Q8HR PRN (Reason: Pain (Scale Score 4-6)) RF: 0 lactulose [Constulose] 10 gram/15 mL solution 15 ml PO DAILY PRN (Reason: other) RF: 0 No Action (DME) One Touch Verio Meter Qty: 1 RF: 0 (DME) One touch verio test strips Qty: 100 RF: 1 Follow up/Referrals: Scout Yadav MD [Physician] - Rodolfo Evans DO [Primary Care Provider] - Diet/Activity/Treatments Diet: Low-sodium Visit Report/Discharge Packet Instructions: DI for Atrial Fibrillation, Diltiazem, Apixaban Discharge Data Primary Care Provider: Rodolfo Evans Attending Provider: Tonya Mckenzie VTE Deep Vein Thrombosis/Pulmonary Embolism Present on Admission: No MIPS - DC The patient has current or prior documentation of left ventricular ejection fraction (LVEF) less than 40%, or moderate or severely depressed left ventricular systolic function.: No
== END 2020-10-08 15:00 | disposition home or self-care (01) ==
LOC: ED 19:27 → AC 20:30 → ICU 10-08 09:09 → AC 10-10 09:50 → ICU 10-10 09:50
PROVIDERS: Admitting Provider Nurse Practitioner Family; Emergency Provider Emergency Medicine; PCP Family Medicine; Referring Provider Emergency Medicine; Visit Provider Nurse Practitioner Family
DX: I48.91 Unspecified atrial fibrillation (principal); D69.6 Thrombocytopenia, unspecified; K70.30 Alcoholic cirrhosis of liver without ascites; F10.20 Alcohol dependence, uncomplicated; Z86.19 Personal history of other infectious and parasitic diseases; I10 Essential (primary) hypertension; K21.9 Gastro-esophageal reflux disease without esophagitis; E11.40 Type 2 diabetes mellitus with diabetic neuropathy, unspecified; E03.9 Hypothyroidism, unspecified; F32.9 Major depressive disorder, single episode, unspecified; F41.9 Anxiety disorder, unspecified; Z86.73 Personal history of transient ischemic attack (TIA), and cerebral infarction without residual deficits; Z87.891 Personal history of nicotine dependence; Z20.822 Contact with and (suspected) exposure to COVID-19
CPT/HCPCS: 36415; 71045; 80053; 82465; 82550; 82962; 83036; 83735; 83880; 84443; 84484; 85025; 85379; 87635; 87797; 93005; 93010; 93306; 96365; 96366; 96375; 99284; C9803; G0378; J1815; J1940

== ENCOUNTER → 2020-11-09 16:59 | Outpatient (CLI) | payer OTHER, SELFPAY ==
[2020-10-07 20:39] VITALS: BMI 32.5
--- NOTE | 2020-11-09 17:01 | DI.RAD.S_ITS ---
PROCEDURE: XR ABDOMEN 1V INDICATIONS: constipation TECHNIQUE: One view of the abdomen acquired. COMPARISON: None. FINDINGS: Surgical changes and devices: None. Bowel: [id number] stool involving the right colon. Soft tissues: No suspicious abdominal calcifications. Visualized solid organ contours appear normal in size. Bones: No suspicious bony lesions. IMPRESSION: Mild to moderate stool. No specific evidence of bowel obstruction seen at this time although if the patient's symptoms do not improve, continued surveillance with abdominal series radiographs could be performed. Dictated by: Lance Marquez M.D. on 11/10/2020 at 10:15 Approved by: Lance Marquez M.D. on 11/10/2020 at 10:48
== END ==
PROVIDERS: PCP Family Medicine; Referring Provider Family Medicine; Visit Provider Family Medicine
DX: K59.00 Constipation, unspecified (principal)
CPT/HCPCS: 74018

== ENCOUNTER → 2020-11-26 12:28 | Outpatient (CLI) | payer OTHER, SELFPAY ==
[2020-10-07 20:39] VITALS: BMI 32.5
[2020-11-26 13:51] LABS: Cholesterol 168 mg/dL (140-199); HDL Cholesterol 42 mg/dL (40-60); LDL Cholesterol Calculated 99 mg/dL (<100); Triglycerides 134 mg/dL (35-150)
== END ==
PROVIDERS: PCP Family Medicine; Referring Provider Internal Medicine Cardiovascular Disease; Visit Provider Internal Medicine Cardiovascular Disease
DX: I48.19 Other persistent atrial fibrillation (principal)
CPT/HCPCS: 36415; 80061

== ENCOUNTER → 2021-01-09 14:11 | Outpatient (CLI) | payer OTHER, SELFPAY ==
[2020-10-07 20:39] VITALS: BMI 32.5
[2021-01-09 16:50] LABS: Alanine Aminotransferase 22 IU/L (<50); Albumin 4.3 g/dL (3.5-5.0); Albumin Globulin Ratio 1.4 (1.0-2.8); Alkaline Phosphatase 43 U/L (38-126); Aspartate Aminotransferase 28 IU/L (17-59); Bilirubin Total 0.5 mg/dL (0.2-1.3); Bilirubin Unconjugated 0.3 mg/dL (0.0-1.1); HEMOLYSIS < 15 (0-50); Total Protein 7.3 g/dL (6.3-8.2)
[2021-01-10 08:16] LABS: Hepatitis B Core AB w/Reflex Negative (Negative); Hepatitis B Core IgM Negative (Negative)
== END ==
PROVIDERS: PCP Family Medicine; Referring Provider Family Medicine; Visit Provider Family Medicine
DX: R41.89 Other symptoms and signs involving cognitive functions and awareness (principal); Z86.19 Personal history of other infectious and parasitic diseases
CPT/HCPCS: 36415; 80076; 86704; 86705

== ENCOUNTER → 2021-04-13 11:58 | Outpatient (CLI) | payer OTHER, SELFPAY ==
[2020-10-07 20:39] VITALS: BMI 32.5
--- NOTE | 2021-04-13 | DI.US.S_ITS ---
PROCEDURE: US ABDOMEN LIMITED INDICATIONS: CIRRHOSIS TECHNIQUE: Real-time focused scanning was performed of the abdomen, with image documentation. COMPARISON: [facility], [place], US ABDOMEN COMPLETE, 01/28/2020, 14:17. FINDINGS: Liver is coarse in echotexture and increased in echogenicity. No discrete liver mass is seen. Hepatopetal flow within the main portal vasculature and patent right left portal veins. Recanalized umbilical vein redemonstrated. No gallstones identified. Normal gallbladder wall. No pericholecystic fluid. Negative sonographic Guevara sign. No biliary dilatation. Normal pancreas. IMPRESSION: Cirrhotic hepatic morphology similar to prior examination. Recanalized umbilical vein redemonstrated. Dictated by: Tello Sweeney [facility] Interpreted: Ruiz Newell MD on 04/13/2021 at 13:19 Approved by: Ruiz Newell M.D. on 04/13/2021 at 15:18
== END ==
PROVIDERS: PCP Family Medicine; Referring Provider Internal Medicine Gastroenterology; Visit Provider Internal Medicine Gastroenterology
DX: K70.30 Alcoholic cirrhosis of liver without ascites (principal)
CPT/HCPCS: 76705

== ENCOUNTER → 2021-06-06 12:48 | Outpatient (CLI) | payer OTHER, SELFPAY ==
[2020-10-07 20:39] VITALS: BMI 32.5
[2021-06-06 13:59] LABS: Add Manual Diff / Slide Review NO; Basophils Absolute Auto 0 /uL (0-100); Basophils Percent Auto 0.6 % (0-2); Eosinophils Absolute Auto 100 /uL (0-450); Eosinophils Percent Auto 1.9 % (2-4); Hematocrit 45.1 % (41-53); Hemoglobin 15.1 g/dL (13.5-17.5); Lymphocytes Absolute Auto 1300 /uL (1100-4500); Lymphocytes Percent Auto 26.5 % (25-40); Mean Corpuscular HGB Conc 33.5 % (30-36); Mean Corpuscular Hemoglobin 31.5 PG (26-34); Mean Corpuscular Volume 94.1 fL (80-100); Monocytes Absolute Auto 500 /uL (0-900); Monocytes Percent Auto 9.7 % (3-14); Neutrophils Absolute Auto 2900 /uL (1500-7000); Neutrophils Percent Auto 61.3 % (50-75); Platelet Count 116 X10^3/uL (150-400); Red Blood Cell Count 4.79 X10^6/uL (4.5-5.9); White Blood Cell Count 4.8 X10^3/uL (4.5-11.0)
[2021-06-06 14:08] LABS: Hemoglobin A1C% w Est Avg Glu 5.4 % (4.0-6.0)
[2021-06-06 14:25] LABS: Alanine Aminotransferase 18 IU/L (<50); Albumin 4.4 g/dL (3.5-5.0); Albumin Globulin Ratio 1.5 (1.0-2.8); Alkaline Phosphatase 29 U/L (38-126); Aspartate Aminotransferase 23 IU/L (17-59); BUN Creatinine Ratio 12.9 (6-22); Bilirubin Total 0.7 mg/dL (0.2-1.3); Blood Urea Nitrogen 17 mg/dL (9-20); Calcium 9.5 mg/dL (8.4-10.2); Carbon Dioxide 34 mmol/L (22-32); Chloride 99 mmol/L (98-107); Cholesterol 185 mg/dL (140-199); Estimated Glomerular Filt Rate 54.4 mL/min (>60); Globulin 2.9 g/dL (1.7-4.1); Glucose 106 mg/dL (80-110); HDL Cholesterol 48 mg/dL (40-60); HEMOLYSIS < 15 (0-50); LDL Cholesterol Calculated 115 mg/dL (<100); Potassium 3.9 mmol/L (3.4-5.1); Sodium 139 mmol/L (137-145); Total Protein 7.3 g/dL (6.3-8.2); Triglycerides 109 mg/dL (35-150)
== END ==
PROVIDERS: PCP Family Medicine; Referring Provider Family Medicine; Visit Provider Family Medicine
DX: E11.42 Type 2 diabetes mellitus with diabetic polyneuropathy (principal); I10 Essential (primary) hypertension; Z86.19 Personal history of other infectious and parasitic diseases
CPT/HCPCS: 36415; 80053; 80061; 83036; 85025

== ENCOUNTER → 2021-08-24 12:04 | Outpatient (CLI) | payer OTHER, SELFPAY ==
[2020-10-07 20:39] VITALS: BMI 32.5
--- NOTE | 2021-08-24 | DI.US.S_ITS ---
PROCEDURE: US ABDOMEN LIMITED INDICATIONS: Alcoholic cirrhosis of liver without ascites TECHNIQUE: Real-time scanning was performed of the abdominal and retroperitoneal organs, with image documentation. COMPARISON: [facility], , US ABDOMEN LIMITED, 04/13/2021, 12:19. FINDINGS: Liver: The liver demonstrates increased hepatic echogenicity and surface nodularity. The main portal vein measures 1.3 cm in diameter with hepatopedal flow. Gallbladder: The gallbladder wall measures 2.0 mm in diameter. No stones, sludge, pericholecystic fluid, or sonographic Guevara sign. Biliary ducts: Intrahepatic bile ducts are non-dilated. Extrahepatic bile duct caliber measures 3.3 mm. Normal is 6-7 mm or less in diameter, or 10 mm or less post-cholecystectomy. Pancreas: The pancreas was not visualized due to bowel gas. Miscellaneous: No free abdominal fluid. IMPRESSION: 1. Hepatic cirrhosis. 2. No cholelithiasis or findings to suggest choledocholithiasis or acute cholecystitis. Dictated by: Dolores Thacker M.D. on 08/24/2021 at 14:48 Approved by: Dolores Thacker M.D. on 08/24/2021 at 14:49
== END ==
PROVIDERS: PCP Family Medicine; Referring Provider Internal Medicine Gastroenterology; Visit Provider Internal Medicine Gastroenterology
DX: K70.30 Alcoholic cirrhosis of liver without ascites (principal)
CPT/HCPCS: 76705

== ENCOUNTER → 2022-02-21 12:33 | Outpatient (CLI) | payer OTHER, SELFPAY ==
[2020-10-07 20:39] VITALS: BMI 32.5
--- NOTE | 2022-02-21 | DI.US.S_ITS ---
PROCEDURE: US ABDOMEN COMPLETE INDICATIONS: ALCOHOLIC CIRRHOSIS OF LIVER W/O ASCITES TECHNIQUE: Real-time scanning was performed of the abdominal and retroperitoneal organs, with image documentation. COMPARISON: [facility], [place], US ABDOMEN LIMITED, 08/24/2021, 12:33. [facility], [place], US ABDOMEN LIMITED, 04/13/2021, 12:19. [facility], [place], US ABDOMEN COMPLETE, 01/28/2020, 14:17. FINDINGS: Liver: Liver is normal in size and course echotexture. The main portal vein is enlarged measuring 14.7 mm mm in diameter and demonstrates hepatopetal flow. Gallbladder: No gallstones. No gallbladder wall thickening, pericholecystic fluid or sonographic Guevara's sign. Biliary ducts: Intrahepatic bile ducts are non-dilated. Extrahepatic bile duct caliber measures 5.0 mm. Normal is 6-7 mm or less in diameter, or 10 mm or less post-cholecystectomy. Pancreas: Visualized portions of the pancreas are sonographically normal. Spleen: Spleen is enlarged measuring 15.3. Kidneys: Kidneys are normal in size and echotexture. Right kidney measures 10.9 cm long; left kidney measures 10.7 cm long. No hydronephrosis or nephrolithiasis. No solid masses. Aorta: Visualized aorta is normal in caliber at less than 3 cm. Iliacs: Proximal common iliac arteries are normal in caliber at less than 2.5 cm. IVC: Intrahepatic inferior vena cava is patent. Miscellaneous: No free abdominal fluid. IMPRESSION: 1. Coarse hepatic echotexture consistent with alcoholic liver disease. No focal hepatic mass. 2. Splenomegaly. 3. Portal vein is prominent size with hepatopetal flow. 4. No ascites. Dictated by: Awais Gonzalez M.D. on 02/21/2022 at 17:39 Approved by: Awais Gonzalez M.D. on 02/21/2022 at 17:42
[2022-02-21 14:21] LABS: Add Manual Diff / Slide Review NO; Basophils Absolute Auto 0 /uL (0-100); Basophils Percent Auto 0.6 % (0-2); Eosinophils Absolute Auto 100 /uL (0-450); Eosinophils Percent Auto 1.1 % (2-4); Hematocrit 43.2 % (41-53); Hemoglobin 14.5 g/dL (13.5-17.5); Lymphocytes Absolute Auto 1100 /uL (1100-4500); Lymphocytes Percent Auto 22.6 % (25-40); Mean Corpuscular HGB Conc 33.5 % (30-36); Mean Corpuscular Hemoglobin 31.8 PG (26-34); Mean Corpuscular Volume 94.7 fL (80-100); Monocytes Absolute Auto 500 /uL (0-900); Monocytes Percent Auto 9.7 % (3-14); Neutrophils Absolute Auto 3200 /uL (1500-7000); Platelet Count 106 X10^3/uL (150-400); Red Blood Cell Count 4.57 X10^6/uL (4.5-5.9); Red Cell Distribution Width 15.6 % (11.6-14.8); White Blood Cell Count 4.8 X10^3/uL (4.5-11.0)
[2022-02-21 14:33] LABS: INR 1.4 (0.9-1.3); Prothrombin Time 16.6 SECONDS (10.1-12.7)
[2022-02-21 16:18] LABS: Alanine Aminotransferase 18 IU/L (<50); Albumin Globulin Ratio 1.3 (1.0-2.8); Alkaline Phosphatase 33 U/L (38-126); Aspartate Aminotransferase 19 IU/L (17-59); BUN Creatinine Ratio 11.3 (6-22); Bilirubin Total 0.8 mg/dL (0.2-1.3); Blood Urea Nitrogen 13 mg/dL (9-20); Carbon Dioxide 33 mmol/L (22-32); Chloride 97 mmol/L (98-107); Cholesterol 161 mg/dL (140-199); Estimated Glomerular Filt Rate > 60 mL/min (>60); Globulin 3.1 g/dL (1.7-4.1); Glucose 99 mg/dL (80-110); HDL Cholesterol 51 mg/dL (40-60); HEMOLYSIS < 15 (0-50); LDL Cholesterol Calculated 85 mg/dL (<100); Potassium 4.2 mmol/L (3.4-5.1); Sodium 136 mmol/L (137-145); Total Protein 7.1 g/dL (6.3-8.2); Triglycerides 124 mg/dL (35-150)
[2022-02-22 09:46] LABS: Alpha Fetoprotein 7.9 ng/mL (0.0-8.4)
== END ==
PROVIDERS: PCP Family Medicine; Referring Provider Internal Medicine Gastroenterology; Visit Provider Internal Medicine Gastroenterology
DX: K70.30 Alcoholic cirrhosis of liver without ascites (principal); E78.49 Other hyperlipidemia; D73.2 Chronic congestive splenomegaly
CPT/HCPCS: 36415; 76700; 80053; 80061; 82105; 85025; 85610

== ENCOUNTER → 2023-02-20 13:29 | Outpatient (CLI) | payer OTHER, SELFPAY ==
[2020-10-07 20:39] VITALS: BMI 32.5
[2023-02-20 15:03] LABS: Add Manual Diff / Slide Review NO; Basophils Absolute Auto 0 /uL (0-100); Basophils Percent Auto 0.5 % (0-2); Eosinophils Absolute Auto 100 /uL (0-450); Eosinophils Percent Auto 0.9 % (2-4); Hematocrit 45.2 % (41-53); Hemoglobin 15.4 g/dL (13.5-17.5); Lymphocytes Absolute Auto 1100 /uL (1100-4500); Lymphocytes Percent Auto 17.4 % (25-40); Mean Corpuscular HGB Conc 34.1 % (30-36); Mean Corpuscular Hemoglobin 32.6 PG (26-34); Mean Corpuscular Volume 95.7 fL (80-100); Monocytes Absolute Auto 500 /uL (0-900); Monocytes Percent Auto 7.5 % (3-14); Neutrophils Absolute Auto 4700 /uL (1500-7000); Neutrophils Percent Auto 73.7 % (50-75); Platelet Count 119 X10^3/uL (150-400); Red Blood Cell Count 4.72 X10^6/uL (4.5-5.9); Red Cell Distribution Width 15.4 % (11.6-14.8); White Blood Cell Count 6.4 X10^3/uL (4.5-11.0)
[2023-02-20 15:33] LABS: Hemoglobin A1C% w Est Avg Glu 5.4 % (4.0-6.0)
[2023-02-20 15:44] LABS: Alanine Aminotransferase 24 IU/L (<50); Albumin 4.4 g/dL (3.5-5.0); Albumin Globulin Ratio 1.3 (1.0-2.8); Alkaline Phosphatase 30 U/L (38-126); Aspartate Aminotransferase 24 IU/L (17-59); BUN Creatinine Ratio 14.2 (6-22); Bilirubin Total 0.9 mg/dL (0.2-1.3); Blood Urea Nitrogen 17 mg/dL (9-20); Calcium 9.3 mg/dL (8.4-10.2); Carbon Dioxide 32 mmol/L (22-32); Chloride 92 mmol/L (98-107); Cholesterol 159 mg/dL (140-199); Estimated Glomerular Filt Rate > 60 mL/min (>60); Globulin 3.3 g/dL (1.7-4.1); Glucose 101 mg/dL (80-110); HDL Cholesterol 39 mg/dL (40-60); HEMOLYSIS < 15 (0-50); LDL Cholesterol Calculated 101 mg/dL (<100); Potassium 3.9 mmol/L (3.4-5.1); Sodium 133 mmol/L (137-145); Total Protein 7.7 g/dL (6.3-8.2); Triglycerides 94 mg/dL (35-150)
[2023-02-20 16:05] LABS: TSH w/ Reflex to FT4 1.17 uIU/mL (0.47-4.68)
[2023-02-20 16:07] LABS: Prostate Specific Antigen Scrn 0.167 ng/mL (0.1-4.0)
== END ==
PROVIDERS: PCP Family Medicine; Referring Provider Family Medicine; Visit Provider Family Medicine
DX: E11.42 Type 2 diabetes mellitus with diabetic polyneuropathy (principal); I10 Essential (primary) hypertension; Z12.5 Encounter for screening for malignant neoplasm of prostate; G62.1 Alcoholic polyneuropathy; K74.60 Unspecified cirrhosis of liver; E03.9 Hypothyroidism, unspecified
CPT/HCPCS: 36415; 80053; 80061; 83036; 84443; 85025; G0103

== ENCOUNTER → 2023-02-22 13:18 | Outpatient (CLI) | payer OTHER, SELFPAY ==
[2020-10-07 20:39] VITALS: BMI 32.5
[2023-02-22 15:57] LABS: Vitamin B12 484 pg/mL (239-931)
== END ==
PROVIDERS: PCP Family Medicine; Referring Provider Physician Assistant; Visit Provider Physician Assistant
DX: G62.9 Polyneuropathy, unspecified (principal)
CPT/HCPCS: 36415; 82607

== ENCOUNTER → 2023-10-21 16:47 | Outpatient (CLI) | payer OTHER, SELFPAY ==
[2020-10-07 20:39] VITALS: BMI 32.5
[2023-10-21 17:25] LABS: Add Manual Diff / Slide Review NO; Basophils Absolute Auto 100 /uL (0-100); Basophils Percent Auto 0.9 % (0-2); Eosinophils Absolute Auto 0 /uL (0-450); Eosinophils Percent Auto 0.8 % (2-4); Hematocrit 44.7 % (41-53); Hemoglobin 15.3 g/dL (13.5-17.5); Lymphocytes Absolute Auto 1700 /uL (1100-4500); Lymphocytes Percent Auto 28.5 % (25-40); Mean Corpuscular HGB Conc 34.2 % (30-36); Mean Corpuscular Hemoglobin 33.2 PG (26-34); Monocytes Absolute Auto 700 /uL (0-900); Monocytes Percent Auto 11.2 % (3-14); Neutrophils Absolute Auto 3500 /uL (1500-7000); Neutrophils Percent Auto 58.6 % (50-75); Platelet Count 137 X10^3/uL (150-400); Red Blood Cell Count 4.61 X10^6/uL (4.5-5.9); Red Cell Distribution Width 15.4 % (11.6-14.8); White Blood Cell Count 5.9 X10^3/uL (4.5-11.0)
[2023-10-21 18:13] LABS: Alanine Aminotransferase 26 IU/L (<50); Albumin 4.7 g/dL (3.5-5.0); Albumin Globulin Ratio 1.4 (1.0-2.8); Alkaline Phosphatase 37 U/L (38-126); Aspartate Aminotransferase 30 IU/L (17-59); BUN Creatinine Ratio 17.1 (6-22); Blood Urea Nitrogen 21 mg/dL (9-20); Calcium 9.4 mg/dL (8.4-10.2); Carbon Dioxide 28 mmol/L (22-32); Chloride 97 mmol/L (98-107); Estimated Glomerular Filt Rate > 60 mL/min (>60); Globulin 3.3 g/dL (1.7-4.1); Glucose 104 mg/dL (80-110); HEMOLYSIS < 15 (0-50); Potassium 3.9 mmol/L (3.4-5.1); Sodium 132 mmol/L (137-145)
== END ==
PROVIDERS: PCP Family Medicine; Referring Provider Internal Medicine Gastroenterology; Visit Provider Internal Medicine Gastroenterology
DX: K74.60 Unspecified cirrhosis of liver (principal)
CPT/HCPCS: 36415; 80053; 85025

== ENCOUNTER → 2024-02-10 13:23 | Outpatient (CLI) | payer OTHER, SELFPAY ==
[2020-10-07 20:39] VITALS: BMI 32.5
[2024-02-10 15:31] LABS: Add Manual Diff / Slide Review NO; Basophils Absolute Auto 0 /uL (0-100); Basophils Percent Auto 0.6 % (0-2); Eosinophils Absolute Auto 100 /uL (0-450); Eosinophils Percent Auto 1.3 % (2-4); Hematocrit 40.7 % (41-53); Hemoglobin 13.8 g/dL (13.5-17.5); Lymphocytes Absolute Auto 900 /uL (1100-4500); Lymphocytes Percent Auto 21.3 % (25-40); Mean Corpuscular HGB Conc 33.9 % (30-36); Mean Corpuscular Volume 97.3 fL (80-100); Monocytes Absolute Auto 400 /uL (0-900); Monocytes Percent Auto 9.8 % (3-14); Neutrophils Absolute Auto 2900 /uL (1500-7000); Platelet Count 115 X10^3/uL (150-400); Red Blood Cell Count 4.18 X10^6/uL (4.5-5.9); Red Cell Distribution Width 14.4 % (11.6-14.8); White Blood Cell Count 4.4 X10^3/uL (4.5-11.0)
[2024-02-10 15:46] LABS: Alanine Aminotransferase 18 IU/L (<50); Albumin 4.1 g/dL (3.5-5.0); Albumin Globulin Ratio 1.5 (1.0-2.8); Alkaline Phosphatase 30 U/L (38-126); Aspartate Aminotransferase 23 IU/L (17-59); BUN Creatinine Ratio 13.8 (6-22); Bilirubin Total 0.7 mg/dL (0.2-1.3); Blood Urea Nitrogen 15 mg/dL (9-20); Calcium 9.3 mg/dL (8.4-10.2); Carbon Dioxide 34 mmol/L (22-32); Chloride 92 mmol/L (98-107); Cholesterol 169 mg/dL (140-199); Estimated Glomerular Filt Rate > 60 mL/min (>60); Globulin 2.8 g/dL (1.7-4.1); Glucose 109 mg/dL (80-110); HDL Cholesterol 58 mg/dL (40-60); HEMOLYSIS < 15 (0-50); LDL Cholesterol Calculated 88 mg/dL (<100); Potassium 3.7 mmol/L (3.4-5.1); Sodium 132 mmol/L (137-145); Total Protein 6.9 g/dL (6.3-8.2); Triglycerides 115 mg/dL (35-150)
[2024-02-10 16:17] LABS: Prostate Specific Antigen Scrn 0.222 ng/mL (0.1-4.0)
[2024-02-10 16:23] LABS: TSH w/ Reflex to FT4 0.41 uIU/mL (0.47-4.68)
[2024-02-10 18:24] LABS: Vitamin B12 298 pg/mL (239-931)
[2024-02-10 21:03] LABS: Free T4, Direct Thyroxine 1.42 ng/dL (0.78-2.19)
== END ==
PROVIDERS: PCP Family Medicine; Referring Provider Family Medicine; Visit Provider Family Medicine
DX: I10 Essential (primary) hypertension (principal); Z12.5 Encounter for screening for malignant neoplasm of prostate; E03.9 Hypothyroidism, unspecified; Z86.19 Personal history of other infectious and parasitic diseases; G62.1 Alcoholic polyneuropathy; K74.60 Unspecified cirrhosis of liver
CPT/HCPCS: 36415; 80053; 80061; 82607; 84439; 84443; 85025; G0103

== ENCOUNTER 2024-04-25 13:59 | Emergency (ER) | payer OTHER, SELFPAY ==
[2020-10-07 20:39] VITALS: BMI 32.5
[2024-04-25] VITALS (34 sets, daily range): BP systolic 102–143; BP diastolic 63–95; PULSE 53–126; RESP 14–27; TEMP 36.6; O2SAT 93–99; BMI 28.5
--- NOTE | 2024-04-25 14:03 | ED.ARRPALP ---
HPI - Arrhythmia/Palpitations General Chief Complaint: Arrhythmia/Palpitations Stated Complaint: irregular heart beat, sent by [facility] Time Seen by Provider: 04/25/24 14:02 Source: patient, RN notes reviewed and old records reviewed Mode of arrival: Ambulatory Limitations: no limitations History of Present Illness HPI narrative: 68-year-old male history of atrial fibrillation on apixaban, hypertension, stroke who presents with complaint of your regular and fast heartbeat since last . Patient states feels a little bit less fast currently. He denies any lightheadedness or passing out. No chest pain. He has been a little bit more fatigued denies any active shortness of breath. Denies swelling of extremities. No nausea or vomiting. No diaphoresis. States some chronic constipation but has had bowel movements. Denies any urinary symptoms. States he is on oral anticoagulants 2.5 mg twice daily appears to be apixaban states he has not missed any doses. Takes medication for hypertension, dyslipidemia. States describes cardioversion with SID several years ago. Remote history of knee surgery for meniscus x2. Denies any active tobacco, alcohol or recreational drugs. 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 Notes a history of liver and spleen issues but was following with Gastroenterology and states they made that better. Dr. Evans is his primary care physician. Related Data Previous Rx's Medication Instructions Recorded clotrimazole-betamethasone 1 1 applic topical BID #45 grams 02/13/16 %-0.05 % topical cream One Touch Verio Meter #1 ea 08/14/18 One touch verio test strips #100 ea 12/07/22 lisinopril 40 mg tablet See Rx Instructions .Route 01/04/23 .COMPLEX #90 tabs triamcinolone acetonide 0.1 % See Rx Instructions .Route 07/12/23 topical cream .COMPLEX #30 grams apixaban 5 mg tablet (Eliquis) 2.5 mg (1/2 x 5 mg) PO BID #180 12/10/23 tabs diazepam 5 mg tablet See Rx Instructions .Route 12/24/23 .COMPLEX #60 tabs lactulose 10 gram/15 mL oral See Rx Instructions .Route 01/06/24 solution (Constulose) .COMPLEX #1,500 mL omeprazole 40 mg capsule,delayed 40 mg PO DAILY #90 caps 01/31/24 release hydrochlorothiazide 12.5 mg tablet 25 mg (2 x 12.5 mg) PO .PRN PRN 02/26/24 Swelling #90 tabs nadolol 40 mg tablet 60 mg (1.5 x 40 mg) PO DAILY #90 02/26/24 tabs bupropion HCl 150 mg tablet,12 hr 150 mg PO BID #180 tabs 03/18/24 sustained-release oxycodone 5 mg tablet See Rx Instructions .Route 04/15/24 .COMPLEX #90 tabs levothyroxine 112 mcg tablet 112 mcg PO QAM #90 tabs 04/24/24 Allergies Allergy/AdvReac Type Severity Reaction Status Date / Time paroxetine [From Paxil] Allergy Intermediate Confusion Verified 04/09/24 15:35 pregabalin [From Lyrica] Allergy bloating, Verified 04/09/24 15:35 confusion, anxiety, short tempered buspirone AdvReac Intermediate I DIDN'T Verified 04/09/24 15:35 LIKE HOW IT MADE ME FEEL - HORRIBLE FEELING citalopram AdvReac Mild NAUSEA Verified 04/09/24 15:35 HAYFEVER Allergy Mild RUNNY NOSE Uncoded 04/09/24 15:35 & ITCHY WATERY EYES Review of Systems Review of Systems ROS Unobtainable: All systems reviewed & are unremarkable except as noted in HPI and below Patient History Medical History Splenomegaly Change in stool habits BPH loc w urin obs/LUTS Abdominal bloating Obstructive sleep apnea Brain fog Diarrhea Unexplained weight gain Bilateral lower extremity edema Screen for colon cancer Constipation Persistent atrial fibrillation Atrial fibrillation with rapid ventricular response Orellana's esophagus Fatigue Colon polyps (Unknown) Cirrhosis (Unknown) Anxiety (Unknown) Depression (Unknown) Hypothyroidism (Unknown) History of hepatitis C (~2014) Chronic pain syndrome (Unknown) Alcohol dependence (Unknown) Hypertension (Unknown) Surgical History History of hernia surgery History of knee surgery Family History Father Heart disease Mother Hx of breast cancer Social History household members: family Smoking Status: Former smoker Tobacco: How many years used: 21 alcohol intake: former Smoking Status: Former smoker alcohol intake frequency: other Substance Use Type: does not use Exam Narrative Exam Narrative: GENERAL: Alert and oriented x three, well-appearing male in mild distress. HEENT: Head normocephalic, atraumatic, EOMI, pupils reactive, face symmetric, moist mucous membranes NECK: Supple, full range of motion CARDIOVASCULAR: irregularly irregular rate and rhythm without murmurs, rubs or gallops. Patient is slightly tachycardic. No JVD. No edema bilateral lower extremities. RESPIRATORY: Breath sounds equal bilaterally, no wheezes rales or rhonchi. No tachypnea or accessory muscle use. ABDOMEN: Soft, nontender. Normoactive bowel sounds all 4 quadrants. No guarding or rebound, rigidity, no mass : No CVA tenderness EXTREMITIES: Normal range of motion, no clubbing or edema. Neurovascularly intact NEUROLOGICAL: Cranial nerves II through XII grossly intact. Moving all extremities SKIN: Warm, dry, no petechiae, no rashes or lesions. Initial Vital Signs Initial Vital Signs: Vital Signs Pulse Rate 126 H 04/25/24 14:06 Respiratory Rate 16 04/25/24 14:06 Pulse Oximetry 98 04/25/24 14:06 Oxygen Delivery Method Room Air 04/25/24 14:06 Procedures Cardioversion Consent Signed: Yes Indication: atrial fibrillation with rvr Stability: Stable Number of attempts (shocks): 1 Joules used: 120 Cardiac rhythm post-cardioversion: sinus bradycardia Procedural Sedation Consent signed: Yes Indication: cardioversion ASA Class: II Mallampati Airway Classification: Class II Preparation: radiation monitor applied, pulse oximeter, capnometry used, supplemental O2 applied, suction/airway equipment at bedside and IV secured IV Propofol dose (mg): 100 (Patient received 50 mg followed by 25mg x 2 for a total of 100mg) ED Sedation Level: Moderate (Concious) Patient Tolerated Procedure: Well and No complications Complications: none Course Orders Ordered: ED Orders 04/25/24 14:00 Comprehensive Metabolic Panel Stat Lipase Stat Magnesium Stat NT-proBNP (BNP-Adult 18+) Stat PTT Partial Thromboplastin Miki Stat Prothrombin Time INR Stat Troponin & CK Cardiac Panel Stat 04/25/24 14:07 XR chest 1V Stat EKG-12 Lead Stat 04/25/24 14:10 Complete Blood Count AUTO DIFF Stat 04/25/24 15:51 EKG-12 Lead Stat Discontinued Medications Diltiazem HCl (Diltiazem 25 Mg/5 Ml Sdv) 10 mg IV NOW ONE Stop: 04/25/24 14:24 Last Admin: 04/25/24 14:30 Dose: 10 mg Documented By: DON Sodium Chloride (Normal Saline 0.9%) 500 mls @ 1,000 mls/hr IV BOLUS ONE Stop: 04/25/24 14:52 Last Infusion: 04/25/24 14:57 Dose: Infused Documented By: Admin: 04/25/24 14:29 Dose: 1,000 mls/hr Documented By: DON Propofol (Propofol 200 Mg/20 Ml Vial) 95 mg 1 mg/kg (95 mg) IV NOW ONE Stop: 04/25/24 15:22 Last Admin: 04/25/24 15:41 Dose: 95 mg Documented By: DON Vital Signs Vital signs: Vital Signs - 8 hr 04/25/24 14:06 04/25/24 14:08 04/25/24 14:10 Temperature 97.8 F Pulse Rate 126 H 107 H 115 H Respiratory Rate 16 16 22 Blood Pressure 143/95 H Pulse Oximetry 98 97 99 Oxygen Delivery Method Room Air Room Air Oxygen Flow Rate 04/25/24 14:15 04/25/24 14:20 04/25/24 14:25 Temperature Pulse Rate 117 H 111 H 119 H Respiratory Rate 17 17 21 Blood Pressure Pulse Oximetry 98 97 94 Oxygen Delivery Method Oxygen Flow Rate 04/25/24 14:30 04/25/24 14:30 04/25/24 14:30 Temperature Pulse Rate 101 H 110 H Respiratory Rate 14 Blood Pressure 143/95 H 129/81 Pulse Oximetry 93 Oxygen Delivery Method Oxygen Flow Rate 04/25/24 14:35 04/25/24 14:40 04/25/24 14:45 Temperature Pulse Rate 86 72 77 Respiratory Rate 18 17 16 Blood Pressure Pulse Oximetry 94 95 94 Oxygen Delivery Method Oxygen Flow Rate 04/25/24 14:45 04/25/24 14:50 04/25/24 14:55 Temperature Pulse Rate 73 83 Respiratory Rate 26 H 25 H Blood Pressure 111/73 Pulse Oximetry 94 94 Oxygen Delivery Method Oxygen Flow Rate 04/25/24 15:00 04/25/24 15:00 04/25/24 15:05 Temperature Pulse Rate 78 71 Respiratory Rate 20 17 Blood Pressure 107/77 Pulse Oximetry 95 94 Oxygen Delivery Method Oxygen Flow Rate 04/25/24 15:10 04/25/24 15:15 04/25/24 15:15 Temperature Pulse Rate 73 77 Respiratory Rate 15 18 Blood Pressure 119/90 Pulse Oximetry 95 95 Oxygen Delivery Method Oxygen Flow Rate 04/25/24 15:20 04/25/24 15:25 04/25/24 15:25 Temperature Pulse Rate 77 78 Respiratory Rate 19 18 Blood Pressure 112/76 Pulse Oximetry 95 95 Oxygen Delivery Method Oxygen Flow Rate 04/25/24 15:25 04/25/24 15:30 04/25/24 15:30 Temperature Pulse Rate 80 81 Respiratory Rate 20 16 Blood Pressure 123/88 Pulse Oximetry 95 Oxygen Delivery Method Oxygen Flow Rate 04/25/24 15:35 04/25/24 15:35 04/25/24 15:40 Temperature Pulse Rate 81 85 Respiratory Rate 17 22 Blood Pressure 136/91 H Pulse Oximetry 97 97 Oxygen Delivery Method Oxygen Flow Rate 04/25/24 15:45 04/25/24 15:45 04/25/24 15:45 Temperature Pulse Rate 70 Respiratory Rate 25 H Blood Pressure 115/72 Pulse Oximetry 93 Oxygen Delivery Method Oxygen Flow Rate 3 04/25/24 15:46 04/25/24 15:50 04/25/24 15:50 Temperature Pulse Rate Respiratory Rate Blood Pressure 105/69 Pulse Oximetry Oxygen Delivery Method Oxygen Flow Rate 3 0 04/25/24 15:50 04/25/24 15:55 04/25/24 15:55 Temperature Pulse Rate 56 L 56 L Respiratory Rate 22 27 H Blood Pressure 105/70 Pulse Oximetry 97 95 Oxygen Delivery Method Oxygen Flow Rate 04/25/24 16:00 04/25/24 16:00 04/25/24 16:00 Temperature Pulse Rate 57 L Respiratory Rate 20 Blood Pressure 102/74 102/74 Pulse Oximetry 95 Oxygen Delivery Method Oxygen Flow Rate 0 04/25/24 16:05 04/25/24 16:05 04/25/24 16:15 Temperature Pulse Rate 55 L Respiratory Rate 19 Blood Pressure 113/70 122/69 Pulse Oximetry 93 Oxygen Delivery Method Oxygen Flow Rate 04/25/24 16:15 04/25/24 16:20 04/25/24 16:20 Temperature Pulse Rate 54 L 53 L Respiratory Rate 20 18 Blood Pressure 112/70 Pulse Oximetry 96 96 Oxygen Delivery Method Oxygen Flow Rate 04/25/24 16:26 04/25/24 16:26 04/25/24 16:30 Temperature Pulse Rate 53 L 56 L Respiratory Rate 20 17 Blood Pressure 114/72 Pulse Oximetry 96 96 Oxygen Delivery Method Oxygen Flow Rate 04/25/24 16:31 04/25/24 16:31 04/25/24 16:35 Temperature Pulse Rate 55 L 54 L Respiratory Rate 20 18 Blood Pressure 114/63 Pulse Oximetry 96 98 Oxygen Delivery Method Oxygen Flow Rate 04/25/24 16:35 04/25/24 16:40 04/25/24 16:40 Temperature Pulse Rate 54 L Respiratory Rate 15 Blood Pressure 112/69 112/68 Pulse Oximetry 97 Oxygen Delivery Method Oxygen Flow Rate 04/25/24 16:45 04/25/24 16:45 Temperature Pulse Rate 56 L Respiratory Rate 17 Blood Pressure 110/69 Pulse Oximetry 96 Oxygen Delivery Method Oxygen Flow Rate MDM - Arrhythmia/Palpitations Lab Data 04/25/24 14:10 04/25/24 14:00 Labs: Lab Results 04/25/24 04/25/24 Range/Units 14:00 14:10 WBC 8.6 (4.5-11.0) X10^3/uL RBC 5.05 (4.5-5.9) X10^6/uL Hgb 16.6 (13.5-17.5) g/dL Hct 49.0 (41-53) % MCV 97.0 (80-100) fL MCH 32.9 (26-34) PG MCHC 33.9 (30-36) % RDW 14.7 (11.6-14.8) % Plt Count 153 (150-400) X10^3/uL Neut % (Auto) 71.7 (50-75) % Lymph % (Auto) 18.0 L (25-40) % [place] % (Auto) 9.4 (3-14) % Eos % (Auto) 0.6 L (2-4) % Baso % (Auto) 0.3 (0-2) % Neut # (Auto) 6100 (5911-7033) /uL Lymph # (Auto) 1500 (6878-6379) /uL [place] # (Auto) 800 (0-900) /uL Eos # (Auto) 100 (0-450) /uL Baso # (Auto) 0 (0-100) /uL PT 14.5 H (9.4-12.5) SECONDS INR 1.3 (0.9-1.3) APTT 36 (25.1-36.5) SECONDS Sodium 133 L (137-145) mmol/L Potassium 3.8 (3.4-5.1) mmol/L Chloride 95 L (98-107) mmol/L Carbon Dioxide 29 (22-32) mmol/L BUN 16 (9-20) mg/dL Creatinine 1.27 H (0.66-1.25) mg/dL Estimated GFR > 60 (>60) mL/min BUN/Creatinine Ratio 12.6 (6-22) Glucose 107 (80-110) mg/dL Calcium 9.7 (8.4-10.2) mg/dL Magnesium 1.7 (1.6-2.3) mg/dL Total Bilirubin 1.1 (0.2-1.3) mg/dL AST 26 (17-59) IU/L ALT 18 (<50) IU/L Alkaline Phosphatase 45 (38-126) U/L Total Creatine Kinase 50 L (55-170) U/L Troponin I < 0.012 (0.01-0.034) ng/mL NT-Pro-B Natriuret Pep 3830 H (<125) pg/mL Total Protein 7.9 (6.3-8.2) g/dL Albumin 4.6 (3.5-5.0) g/dL Globulin 3.3 (1.7-4.1) g/dL Albumin/Globulin Ratio 1.4 (1.0-2.8) Lipase 240 (23-300) U/L Imaging Data Chest x-ray: Radiologist's Impresson: Mayra Aguayo??68??M??1955 ? Allergy/Adv: paroxetine, pregabalin, buspirone, citalopram, [HAYFEVER] (More??) Close Chest X-Ray (Signed) Mercedez Villeda - 04/25/24 DI Result 09/25/23 Abdomen Ultrasound (Signed) Awais Gonzalez - 02/21/22 Abdomen Ultrasound (Signed) Dolores Thacker - 08/24/21 Abdomen Ultrasound (Signed) Ruiz Newell - 04/13/21 Abdomen X-Ray (Signed) Lance Marquez - 11/09/20 Echocardiogram Ultrasound (Signed) Scout Yadav - 10/07/20 Telemetry Strips 10/07/20 Telemetry Strips 10/07/20 Chest X-Ray (Signed) Lance Marquez - 10/07/20 Abdomen Ultrasound (Addendum) KemahPankaj - 01/28/20 Abdomen Ultrasound (Signed) Lance Marquez - 01/16/19 Abdomen Ultrasound (Signed) MadanMarcial - 07/30/[address] (Signed) ChetNataliia - 06/25/18 Chest X-Ray (Signed) Jesus Tidwell - 06/25/18 Carotid Doppler Study (Signed) Teodora Ko - 11/12/17 Telemetry Strips 09/24/17 Launch?Image [address] [address] XRay Report Signed Patient: Mayra Aguayo MR#: [id number] : 1955 Acct:[id number] Age/Sex: 68 / M Date of Service: 04/25/24 Loc: ED Accession Number: [id number] Procedure: XR chest 1V Ordering Provider: Jenny Doherty D.O. PROCEDURE: XR CHEST 1V INDICATIONS: chest pain TECHNIQUE: One view of the chest was acquired. COMPARISON: [facility], , XR CHEST 1V, 10/07/2020, 19:32. FINDINGS: Surgical changes and devices: None. Lungs and pleura: Lungs are clear. No pleural effusions or pneumothorax. Mediastinum: Mediastinal contours appear normal. Heart size is normal. Bones and chest wall: No suspicious bony lesions. Overlying soft tissues appear unremarkable. IMPRESSION: No acute cardiopulmonary abnormality is seen. Dictated by: Mercedez Villeda M.D. on 04/25/2024 at 13:41 Approved by: Mercedez Villeda M.D. on 04/25/2024 at 13:42 ECG Data Attestation: I personally reviewed and interpreted this ECG as follows: Prior ECG tracings: available for review Interpretation: AFib with RVR rate of 107 QRS of 94 QTC of 424, no acute ST elevation depression nonspecific change. Patient has prior EKG from 10/07/2020 which also shows AFib RVR similar-appearing ST segments. EKG 2. Sinus bradycardia rate of 57 VT 174 QRS of 96 QTC of 395. No acute ST changes appreciated nonspecific change MDM Narrative Medical decision making narrative: 68-year-old male history of atrial fibrillation he would AFib RVR for the past several days per patient's symptoms. He is anticoagulated appropriately. Patient appears to be on lisinopril, apixaban but unclear if he was taking anything for rate control. He does follow with cardiology locally with Dr. Yadav Labs show white count 8.6 hemoglobin of 16.6 platelets of 153. Sodium 133, potassium 3.8 chloride 95 CO2 of 29 BUN 16 creatinine 1.27 was 1.23-1.09 in October and January of 2024. Patient's is 1.7 with a calcium of 9.7. AST ALT alk-phos are normal CK is 50. Troponin is less than 0.012, BNP is 3830. Prior was 3500 and 4720 prior to that in 2020. Chest x-ray shows no acute changes. EKG shows AFib RVR. Patient was given 500 mL bolus as well as 10 mg diltiazem. Patient appears rate controlled but is still irregular. Discussed with Dr. Ch from cardiology she feels patient is appropriate for cardioversion if taking his anticoagulants regularly which he states he has been very careful about this. If successful would have patient can continue on his current medications including his current nadolol dose with follow up with Dr. Yadav. She will message to help set up follow up. Discussed with patient he is currently rate controlled but still irregular he is agreeable for cardioversion reviewed risks versus benefits and after discussion patient would like to proceed. Patient appears to have cardioverted with electrical cardioversion and procedural sedation. Patient's seems to have tolerated well. Patient sinus bradycardia post procedure. Discharge Plan Departure Patient Disposition: Home Clinical Impression: Atrial fibrillation with rapid ventricular response Instructions: DI for Atrial Fibrillation Activity Restrictions/Additional Instructions: Follow up with Dr. Yadav, you should be contacted this week to set up follow up but if you have not heard from them by Saturday please call to set up appointment. Continue your home medications as prescribed. Please return for recurrent symptoms, palpitations or fast heartbeat, shortness of breath, chest pain, lightheadedness or passing out, new swelling of your extremities or other new or concerning changes. Prescriptions: No Action (DME) One Touch Verio Meter Qty: 1 0RF Dose Instruction: As directed Rx Instructions: Use the one touch verio meter to test blood sugar once daily (DME) One touch verio test strips Qty: 100 1RF Dose Instruction: As directed Rx Instructions: Use the one touch verio test strips to test blood glucose daily. lisinopril 40 mg tablet See Rx Instructions .ROUTE .COMPLEX Qty: 90 0RF Dose Instruction: take 1 tablet (40 mg) by mouth once daily Rx Instructions: take 1 tablet (40 mg) by mouth once daily triamcinolone acetonide 0.1 % cream See Rx Instructions .ROUTE .COMPLEX Qty: 30 0RF Dose Instruction: apply to affected area twice a day if needed Rx Instructions: apply to affected area twice a day if needed clotrimazole-betamethasone 1-0.05 % cream 1 applic Topical BID Qty: 45 1RF Eliquis 5 mg tablet 2.5 mg PO BID Qty: 180 1RF diazepam 5 mg tablet See Rx Instructions .ROUTE .COMPLEX Qty: 60 5RF Rx Instructions: Take 1-2 tablets by mouth 2 times daily as needed for severe anxiety lactulose [Constulose] 10 gram/15 mL solution See Rx Instructions .ROUTE .COMPLEX Qty: 1500 3RF Dose Instruction: take 30 milliliter by mouth twice a day Rx Instructions: take 30 milliliter by mouth twice a day omeprazole 40 mg capsule,delayed release(DR/EC) 40 mg PO DAILY Qty: 90 1RF nadolol 40 mg tablet 60 mg PO DAILY Qty: 90 3RF hydrochlorothiazide 12.5 mg tablet 25 mg PO .PRN PRN (Reason: Swelling ) Qty: 90 3RF bupropion HCl 150 mg tablet sustained-release 12 hr 150 mg PO BID Qty: 180 0RF oxycodone 5 mg tablet See Rx Instructions .ROUTE .COMPLEX Qty: 90 0RF Rx Instructions: Take 1 tablet by mouth 3 times daily as needed for pain; levothyroxine 112 mcg tablet 112 mcg PO QAM Qty: 90 0RF Referrals: Scout Yadav MD [Physician] - Nathan,Tacos C, DO [Primary Care Provider] - Stand Alone Forms: Patient Portal/API/Survey
--- NOTE | 2024-04-25 14:07 | DI.RAD.S_ITS ---
PROCEDURE: XR CHEST 1V INDICATIONS: chest pain TECHNIQUE: One view of the chest was acquired. COMPARISON: [facility], CR, XR CHEST 1V, 10/07/2020, 19:32. FINDINGS: Surgical changes and devices: None. Lungs and pleura: Lungs are clear. No pleural effusions or pneumothorax. Mediastinum: Mediastinal contours appear normal. Heart size is normal. Bones and chest wall: No suspicious bony lesions. Overlying soft tissues appear unremarkable. IMPRESSION: No acute cardiopulmonary abnormality is seen. Dictated by: Mercedez Villeda M.D. on 04/25/2024 at 13:41 Approved by: Mercedez Villeda M.D. on 04/25/2024 at 13:42
--- NOTE | 2024-04-25 14:12 | EKG_ITS ---
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
[2024-04-25 14:22] LABS: Add Manual Diff / Slide Review NO; Basophils Absolute Auto 0 /uL (0-100); Basophils Percent Auto 0.3 % (0-2); Eosinophils Absolute Auto 100 /uL (0-450); Eosinophils Percent Auto 0.6 % (2-4); Hemoglobin 16.6 g/dL (13.5-17.5); Lymphocytes Absolute Auto 1500 /uL (1100-4500); Mean Corpuscular HGB Conc 33.9 % (30-36); Mean Corpuscular Hemoglobin 32.9 PG (26-34); Monocytes Absolute Auto 800 /uL (0-900); Monocytes Percent Auto 9.4 % (3-14); Neutrophils Absolute Auto 6100 /uL (1500-7000); Neutrophils Percent Auto 71.7 % (50-75); Platelet Count 153 X10^3/uL (150-400); Red Blood Cell Count 5.05 X10^6/uL (4.5-5.9); Red Cell Distribution Width 14.7 % (11.6-14.8); White Blood Cell Count 8.6 X10^3/uL (4.5-11.0)
[2024-04-25] MEDS: SODIUM CHLORIDE 0.9% 500 ML 1000 ML IV (14:29)
[2024-04-25 14:30] LABS: INR 1.3 (0.9-1.3); Prothrombin Time 14.5 SECONDS (9.4-12.5)
[2024-04-25] MEDS: dilTIAZem 25 MG/5 ML SDV 10 MG IV (14:30)
[2024-04-25 14:33] LABS: Alanine Aminotransferase 18 IU/L (<50); Albumin 4.6 g/dL (3.5-5.0); Albumin Globulin Ratio 1.4 (1.0-2.8); Alkaline Phosphatase 45 U/L (38-126); Aspartate Aminotransferase 26 IU/L (17-59); BUN Creatinine Ratio 12.6 (6-22); Bilirubin Total 1.1 mg/dL (0.2-1.3); Blood Urea Nitrogen 16 mg/dL (9-20); Calcium 9.7 mg/dL (8.4-10.2); Carbon Dioxide 29 mmol/L (22-32); Chloride 95 mmol/L (98-107); Creatine Kinase 50 U/L (55-170); Estimated Glomerular Filt Rate > 60 mL/min (>60); Globulin 3.3 g/dL (1.7-4.1); Glucose 107 mg/dL (80-110); HEMOLYSIS 20 (0-50); Lipase 240 U/L (23-300); Magnesium 1.7 mg/dL (1.6-2.3); PTT Partial Thromboplastin Tim 36 SECONDS (25.1-36.5); Potassium 3.8 mmol/L (3.4-5.1); Sodium 133 mmol/L (137-145); Total Protein 7.9 g/dL (6.3-8.2)
[2024-04-25 14:45] LABS: NT-proBNP (BNP-Adult 18+) 3830 pg/mL (<125); Troponin I < 0.012 ng/mL (0.01-0.034)
[2024-04-25] MEDS: propofoL 200 MG/20 ML VIAL 95 MG IV (15:41)
--- NOTE | 2024-04-25 15:55 | EKG_ITS ---
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
--- NOTE | 2024-04-25 16:08 | RT ---
Called to ER for Cardioversion. Bag mask unit at [facility] with suction functional. Pt on 3 lpm ncwith etco2-35 Sao2 @97%. No dsitress noted, pt returned back to baseline, alert and on room air. Released by Rn and repeat ekg done given to Dr. Doherty
== END 2024-04-25 17:00 | disposition home or self-care (01) ==
PROVIDERS: Emergency Provider Emergency Medicine; PCP Family Medicine
DX: I48.20 Chronic atrial fibrillation, unspecified (principal); R07.9 Chest pain, unspecified; R00.1 Bradycardia, unspecified; Z79.01 Long term (current) use of anticoagulants
CPT/HCPCS: 71045; 80053; 82550; 83690; 83735; 83880; 84484; 85025; 85610; 85730; 92960; 93005; 93010; 96374; 99152; 99284; 99285; J2704

== ENCOUNTER → 2024-08-27 12:15 | Outpatient (CLI) | payer OTHER, SELFPAY ==
[2020-10-07 20:39] VITALS: BMI 32.5
[2024-08-27 12:51] LABS: Add Manual Diff / Slide Review NO; Basophils Absolute Auto 0 /uL (0-100); Basophils Percent Auto 0.7 % (0-2); Eosinophils Absolute Auto 100 /uL (0-450); Eosinophils Percent Auto 1.3 % (2-4); Hematocrit 46.6 % (41-53); Hemoglobin 15.7 g/dL (13.5-17.5); Lymphocytes Absolute Auto 1100 /uL (1100-4500); Lymphocytes Percent Auto 24.3 % (25-40); Mean Corpuscular HGB Conc 33.8 % (30-36); Mean Corpuscular Hemoglobin 31.5 PG (26-34); Mean Corpuscular Volume 93.2 fL (80-100); Monocytes Absolute Auto 500 /uL (0-900); Monocytes Percent Auto 10.1 % (3-14); Neutrophils Absolute Auto 2800 /uL (1500-7000); Neutrophils Percent Auto 63.6 % (50-75); Platelet Count 154 X10^3/uL (150-400); Red Blood Cell Count 4.99 X10^6/uL (4.5-5.9); Red Cell Distribution Width 14.8 % (11.6-14.8); White Blood Cell Count 4.5 X10^3/uL (4.5-11.0)
[2024-08-27 13:03] LABS: Ammonia (NH3) < 9 umol/L (9-30)
[2024-08-27 13:08] LABS: Alanine Aminotransferase 21 IU/L (<50); Albumin 4.8 g/dL (3.5-5.0); Albumin Globulin Ratio 1.7 (1.0-2.8); Alkaline Phosphatase 30 U/L (38-126); Aspartate Aminotransferase 26 IU/L (17-59); BUN Creatinine Ratio 12.1 (6-22); Bilirubin Total 1.1 mg/dL (0.2-1.3); Blood Urea Nitrogen 15 mg/dL (9-20); Calcium 9.9 mg/dL (8.4-10.2); Carbon Dioxide 30 mmol/L (22-32); Chloride 93 mmol/L (98-107); Cholesterol 159 mg/dL (140-199); Estimated Glomerular Filt Rate > 60 mL/min (>60); Globulin 2.8 g/dL (1.7-4.1); Glucose 108 mg/dL (80-110); HDL Cholesterol 44 mg/dL (40-60); HEMOLYSIS < 15 (0-50); LDL Cholesterol Calculated 94 mg/dL (<100); Potassium 4.4 mmol/L (3.4-5.1); Sodium 133 mmol/L (137-145); Total Protein 7.6 g/dL (6.3-8.2); Triglycerides 103 mg/dL (35-150)
[2024-08-27 13:38] LABS: Prostate Specific Antigen Scrn 0.239 ng/mL (0.1-4.0)
[2024-08-27 13:40] LABS: TSH w/ Reflex to FT4 0.84 uIU/mL (0.47-4.68)
== END ==
LOC: LAB 12:17
PROVIDERS: PCP Family Medicine; Referring Provider Family Medicine; Visit Provider Family Medicine
DX: I10 Essential (primary) hypertension (principal); Z12.5 Encounter for screening for malignant neoplasm of prostate; E03.9 Hypothyroidism, unspecified; R41.89 Other symptoms and signs involving cognitive functions and awareness; F10.11 Alcohol abuse, in remission
CPT/HCPCS: 36415; 80053; 80061; 82140; 84443; 85025; G0103

== ENCOUNTER → 2024-10-23 10:52 | Outpatient (CLI) | payer OTHER, SELFPAY ==
[2020-10-07 20:39] VITALS: BMI 32.5
[2024-10-23 12:44] LABS: Add Manual Diff / Slide Review NO; Basophils Absolute Auto 0 /uL (0-100); Basophils Percent Auto 0.4 % (0-2); Eosinophils Absolute Auto 0 /uL (0-450); Hematocrit 43.4 % (41-53); Hemoglobin 14.6 g/dL (13.5-17.5); Lymphocytes Absolute Auto 1000 /uL (1100-4500); Lymphocytes Percent Auto 20.7 % (25-40); Mean Corpuscular HGB Conc 33.5 % (30-36); Mean Corpuscular Hemoglobin 32.2 PG (26-34); Monocytes Absolute Auto 400 /uL (0-900); Monocytes Percent Auto 9.4 % (3-14); Neutrophils Absolute Auto 3200 /uL (1500-7000); Neutrophils Percent Auto 68.5 % (50-75); Platelet Count 129 X10^3/uL (150-400); Red Blood Cell Count 4.52 X10^6/uL (4.5-5.9); Red Cell Distribution Width 15.5 % (11.6-14.8); White Blood Cell Count 4.7 X10^3/uL (4.5-11.0)
[2024-10-23 13:40] LABS: Alanine Aminotransferase 21 IU/L (<50); Albumin 4.7 g/dL (3.5-5.0); Albumin Globulin Ratio 1.9 (1.0-2.8); Alkaline Phosphatase 39 U/L (38-126); Aspartate Aminotransferase 25 IU/L (17-59); BUN Creatinine Ratio 12.1 (6-22); Bilirubin Total 0.8 mg/dL (0.2-1.3); Blood Urea Nitrogen 14 mg/dL (9-20); Calcium 9.7 mg/dL (8.4-10.2); Carbon Dioxide 33 mmol/L (22-32); Chloride 92 mmol/L (98-107); Estimated Glomerular Filt Rate > 60 mL/min (>60); Globulin 2.5 g/dL (1.7-4.1); Glucose 115 mg/dL (70-99); HEMOLYSIS < 15 (0-50); Potassium 4.5 mmol/L (3.4-5.1); Sodium 132 mmol/L (137-145); Total Protein 7.2 g/dL (6.3-8.2)
== END ==
PROVIDERS: PCP Family Medicine; Referring Provider Family Medicine; Visit Provider Family Medicine
DX: I10 Essential (primary) hypertension (principal); G62.1 Alcoholic polyneuropathy
CPT/HCPCS: 36415; 80053; 85025

== ENCOUNTER → 2024-11-02 10:03 | Outpatient (CLI) | payer OTHER, SELFPAY ==
[2020-10-07 20:39] VITALS: BMI 32.5
--- NOTE | 2024-11-02 10:05 | DI.US.S_ITS ---
PROCEDURE: US VENOUS INSUFFICIENCY BILAT INDICATIONS: AFIB TECHNIQUE: Real time scanning was performed of the lower extremity venous system, with imaging documentation, as well as Color and pulse Doppler interrogation. COMPARISON: None. FINDINGS: RIGHT LOWER EXTREMITY: The deep veins are normally compressible, and free of intraluminal thrombus. Color and pulse Doppler demonstrate normal intravascular flow. There is normal augmentation with distal compression maneuver. Greater saphenous vein (GSV): Normally 4 mm or less in diameter, with any reflux less than 0.5 seconds. Saphenofemoral junction (SFJ): 10 mm. Reflux time 0.6 seconds Proximal GSV: 3 mm. No reflux. Mid GSV: 2 mm. No reflux. Distal GSV: 2 mm. No reflux. Calf GSV: 2 mm, and reflux time 0.8 seconds. Anterior accessory GSV (AAGSV): Anatomic variant without reflux Small saphenous vein (SSV): Posterior calf, draining into popliteal vein. Posterior calf: 5 mm. Reflux time 2.5 seconds Vein of Giacomini (posterior thigh connection between GSV and SSV): Anatomic variant not seen. LEFT LOWER EXTREMITY: The deep veins are normally compressible, and free of intraluminal thrombus. Color and pulse Doppler demonstrate normal intravascular flow. There is normal augmentation with distal compression maneuver. Greater saphenous vein (GSV): Normally 4 mm or less in diameter, with any reflux less than 0.5 seconds. Saphenofemoral junction (SFJ): 7 mm. Reflux time 2.2 seconds Proximal GSV: 5 mm. Reflux time 0.6 seconds Mid GSV: 1 mm. No reflux. Distal GSV: 1 mm. No reflux. Calf GSV: 2 mm. No reflux. Anterior accessory GSV (AAGSV): Anatomic variant measuring 5 mm in diameter with reflux time 1.2 seconds Small saphenous vein (SSV): Posterior calf, draining into popliteal vein. Posterior calf: 2 mm. No reflux. Vein of Giacomini (posterior thigh connection between GSV and SSV): Anatomic variant not seen. IMPRESSION: 1. Superficial venous insufficiency involving the left GSV in the upper thigh and a left anterior accessory GSV. 2. Reflux involving the right saphenofemoral junction with remainder of the right GSV appearing competent. Superficial venous insufficiency involving the right SSV. Dictated by: Genaro Hollis M.D. on 11/04/2024 at 11:18 Approved by: Genaro Hollis M.D. on 11/04/2024 at 11:23
--- NOTE | 2024-11-02 13:56 | DI.ECHO.S_ITS ---
[facility] : : [address] : [address] [address] : : [id number] : : Phone: [phone] Echocardiogram Report + + :Name: JOSEPH DUKE Study Date: 11/02/2024 Height: 72 in : :[facility] ReadingLocation: Weight: 195 lb : : Gender: Male BSA: 2.1 m2 : :: 1955 Age: 68 yrs BP: 127/77 mmHg: :Reason For Study: SHORTNESS OF BREATH : :Ordering Physician: MARTHA, : :CLAUDIA Performed By: Nadiya Cho : :Referring: CLAUDIA THOMAS : + + Interpretation Summary The patient was in sinus bradycardia with heart rates between 48-55 bpm during the exam. Previously was in A-fib. The left ventricle is normal in size and wall thickness. The left ventricular ejection fraction is normal. LVEF 60 to 65%. Previous 55 to 60% The right ventricle is borderline dilated. The right ventricular systolic function is normal. There is mild tricuspid regurgitation. The IVC is of normal diameter and collapses greater than 50% with a sniff. This suggests a low right atrial pressure of 3 mm Hg. Procedure: A two-dimensional transthoracic echocardiogram with color flow and Doppler was performed. The study quality was technically adequate. Comparison is made with the echocardiogram of 10/08/2020. The patient was in sinus bradycardia with heart rates between 48-55 bpm during the exam. Left Ventricle: The left ventricle is normal in size and wall thickness. There is no thrombus. The ejection fraction is estimated to be 60-65%. The left ventricular ejection fraction is normal. There are no focal wall motion abnormalities. Diastolic parameters suggest a relaxation abnormality of the left ventricle, consistent with probable normal filling pressures. Right Ventricle: The right ventricle is borderline dilated. The right ventricular systolic function is normal. Atria: The left atrium is moderately dilated. The left atrium has mildly increased in size since the prior echo exam. Right atrial size is normal. There is no Doppler evidence for an interatrial shunt. The interatrial septum bows toward right atrium consistent with elevated left atrial pressure. Mitral Valve: The mitral valve leaflets appear to open well. The mitral valve leaflets are mildly calcified. There is trace mitral regurgitation. Aortic Valve: The aortic valve is trileaflet. The aortic valve opens well. There is no aortic valve stenosis. No aortic regurgitation is present. Tricuspid Valve: The tricuspid valve is not well visualized, but is grossly normal. There is mild tricuspid regurgitation. The right ventricular systolic pressure is estimated to be at least 26 mmHg based on an estimated right atrial pressure of 3 mm Hg. Pulmonic Valve: The pulmonic valve leaflets are thin and pliable; valve motion is normal. There is no pulmonic valvular regurgitation. Great Vessels: The aortic root is normal size. The dimensions of the ascending aorta are normal. The IVC is of normal diameter and collapses greater than 50% with a sniff. This suggests a low right atrial pressure of 3 mm Hg. Pericardium/ Pleura There is no pericardial effusion. There is no pleural effusion. MMode/2D Measurements & Calculations LVIDd: 5.1 cm LVOT diam: 2.0 cm LVIDs: 3.6 cm Ao root diam: 3.4 cm FS: 29.1 % asc Aorta Diam: 3.4 cm EPSS: 0.79 cm Ao Arch Diam (Prox Trans): 2.7 cm IVSd: 0.99 cm LVPWd: 0.99 cm LV shrestha. diameter/BSA (cm/m^2): 2.4 LV sys. diameter/BSA (cm/m^2): 1.7 LA A2 area: 24.2 cm2 RA long axis: 5.3 cm LA A4 area: 21.6 cm2 RA area: 17.7 cm2 LA length (vol): 5.7 cm RA vol: 50.8 ml LA vol: 77.0 ml RA : 24.1 ml/m2 LA vol index: 36.5 ml/m2 IVC diam: 1.3 cm RVD1 (basal): 4.2 cm RVD2 (mid): 3.5 cm TAPSE: 2.2 cm Doppler Measurements & Calculations Ao V2 max: 127.4 cm/sec LVOT Max Bill: 101.7 cm/sec Ao V2 mean: 85.0 cm/sec LV V1 max P.1 mmHg Ao max P.5 mmHg LV V1 VTI: 21.9 cm Ao mean P.2 mmHg BRANDIE(I,D): 2.3 cm2 Ao V2 VTI: 27.9 cm BRANDIE(V,D): 2.4 cm2 sev ratio: 0.78 BRANDIE indexed to BSA (cm^2/m^2): 1.1 MV E max bill: 47.2 cm/sec TR max bill: 240.7 cm/sec MV A max bill: 65.0 cm/sec TR max P.2 mmHg MV E/A: 0.73 PA V2 max: 72.5 cm/sec Med Peak E' Bill: 6.5 cm/sec PA V2 mean: 51.0 cm/sec E/E' med: 7.3 PA mean P.1 mmHg Lat Peak E' Bill: 8.0 cm/sec PA pr(Accel): 7.1 mmHg E/E' lat: 5.9 E/e' average: 6.6 MV dec time: 0.22 sec SV(LVOT): 65.5 ml Reading Physician:03:41 PM
== END ==
PROVIDERS: PCP Family Medicine; Referring Provider Internal Medicine Cardiovascular Disease; Visit Provider Internal Medicine Cardiovascular Disease
DX: I87.2 Venous insufficiency (chronic) (peripheral) (principal); I48.0 Paroxysmal atrial fibrillation
CPT/HCPCS: 93306; 93970

== ENCOUNTER 2024-12-31 17:00 | Outpatient (RCR) | payer OTHER, SELFPAY ==
[2020-10-07 20:39] VITALS: BMI 32.5
--- NOTE | 2024-12-11 16:41 | PT.OIE ---
Current Diagnoses Low back pain, unspecified (12/11/24) Past Medical History (Last Updated 11/20/24 @ 13:53 by Tacos Evans DO) Abdominal bloating Acute encephalopathy Acute left-sided low back pain without sciatica Alcohol dependence Alcohol dependence (Unknown) Anxiety (Unknown) Atrial fibrillation with rapid ventricular response Orellana's esophagus Bilateral lower extremity edema BPH loc w urin obs/LUTS Brain fog Change in stool habits Chronic pain syndrome (Unknown) Cirrhosis with alcoholism Cognitive change Colon polyps (Unknown) Constipation Depression (Unknown) Diarrhea Fatigue History of hepatitis C (~2014) Hypertension (Unknown) Hypothyroidism (Unknown) Obstructive sleep apnea Pelvic somatic dysfunction Persistent atrial fibrillation Sacral region somatic dysfunction Screen for colon cancer Splenomegaly Stroke Unexplained weight gain Venous insufficiency of both lower extremities Past Surgical History (Last Reviewed 04/25/24 @ 14:20 by Jenny Doherty DO) History of hernia surgery History of knee surgery Visit Care Team Role Provider Type Tacos Evans DO Attending Provider Physician Family Provider Primary Care Provider Referring Provider Specialty: [facility] Address: [address] [place] [address], [facility] Email: Physical Therapy Initial Evaluation PT-OP-A Visit Information Start: 12/11/24 15:01 Freq: Status: Active Protocol: Document 12/11/24 13:45 DCW (Rec: 12/11/24 15:12 DCW [id number]) Out-Patient Physical Therapy Visit Information Visit Information Visit Type Initial Evaluation Visit Start Time 13:45 Visit Stop Time 14:30 Visit Number 1 Number of DIRECTOR OF LOSS PREVENTION Visits 0 Evaluation Information Evaluation Date 12/11/24 PT-OP-B Current Condition Start: 12/11/24 15:01 Freq: Status: Active Protocol: Document 12/11/24 13:45 DCW (Rec: 12/11/24 16:41 DCW [id number]) Current Condition History of Current Condition Onset Date 14 week history Current Complaints Posterior L hip pain History of Current Pt is a 69 year old male presenting with a 14 week Condition history of posterior left hip pain. Pt reports pain is worst upon first getting up in the morning and after sitting for an extended period of time, especially sitting in meetings lasting 1+ hours. Pt reports that due to other medical problems, he spent about a year either lying in bed or sitting in a chair, and although he is doing better now, he feels that the decline in activity has a lot to do with his current pain. Has seen a chiropractor a few times with no change. Notes difficulty getting shoes on in the morning. Minimal change day-to-day. PT-OP-C Subjective Start: 12/11/24 15:01 Freq: Status: Active Protocol: Document 12/11/24 13:45 DCW (Rec: 12/11/24 15:12 DCW [id number]) OP-PT Subjective Patient Comments Patient Comments I've been seeing a Chiropractor for it, but I haven't really seen any improvement. If anything, it might be getting worse. Patient Reported Worse Progress Patient Questionnaires Oswestry Low Back Index Oswestry Score 16/50 = 32% PT-OP-F Manual Assessment Start: 12/11/24 15:01 Freq: Status: Active Protocol: Document 12/11/24 13:45 DCW (Rec: 12/11/24 15:12 DCW [id number]) Manual Assessments Soft Tissue Assessment Soft Tissue Mobility Moderate tone with tenderness to palpation 3/4: wincing Assessment and withdraw along left piriformis Joint Mobility Assessment Joint Mobility Left hip joint passive ROM WNL, no joint limitations Assessment PT-OP-L Special Tests Start: 12/11/24 15:01 Freq: Status: Active Protocol: Document 12/11/24 13:45 DCW (Rec: 12/11/24 15:12 DCW [id number]) Special Tests Hip Special Tests Straight Leg Raise Test Results Negative Scour Test Test Results Negative Piriformis Test Results Positive L FRANDY Test Results Negative PT-OP-M Strength Start: 12/11/24 15:01 Freq: Status: Active Protocol: Document 12/11/24 13:45 DCW (Rec: 12/11/24 15:12 DCW [id number]) Hip Strength Hip Manual Muscle Testing Right Flexion (L2) 4+ Good+ Abduction 4 Good Adduction 4 Good External Rotation 4 Good Internal Rotation 4 Good Left Flexion (L2) 4+ Good+ Abduction 4- Good- Adduction 4- Good- External Rotation 4 Good Internal Rotation 4 Good PT-OP-Q Treatments Start: 12/11/24 15:01 Freq: Status: Active Protocol: Document 12/11/24 13:45 DCW (Rec: 12/11/24 15:12 DCW [id number]) Therapeutic Exercises Supine Exercises Piriformis Supine Exercise Name Figure-4, knee to opposite shoulder Side left Sidelying Exercises Reverse Clamshell Sidelying Exercise Reverse Clamshell Name Side left Clamshell Sidelying Exercise Clamshell Name Side left Sitting Exercises Piriformis Sitting Exercise Seated figure-4 Name Side left PT-OP-T Assessment and Plan Start: 12/11/24 15:01 Freq: Status: Active Protocol: Document 12/11/24 13:45 DCW (Rec: 12/11/24 16:41 DCW [id number]) Physical Therapy Assessment Rehab Potential Rehabilitation Good Potential Evaluation Complexity Number of Personal 3 or More Factors/ Comorbidities Number of Body 4 or More Systems Impaired Clinical Evolving Presentation at Evaluation Impairments Impairments Functional Activities,Functional Mobility,Pain,Soft Tissue Mobility,Strength Goals Two Impairment Pt has difficulty donning shoes in the morning due to hip pain Skilled Nursing Goal (LTG) Pt to report pain in the morning a 3/10 at worst in order to better enable him to put his shoes on. LTG Duration 02/10/25 One Impairment Pt does not have an appropriate home exercise program Short Term Goal (STG Pt to be independent and compliant with an appropriate ) HEP STG Duration 01/10/25 Assessment Summary Assessment Pt presents with signs and symptoms consistent with referring diagnosis. Pt demonstrates increased tone and tenderness along left piriformis, limiting hip mobility and appears to be causing increased pain in his posterior hip. During attempted piriformis stretching, pt noted that he felt a stretch right in the place that's been bothering me. Additionally, displays bilateral hip weakness, which may be compounding his discomfort and hip instability during gait. Pt will likely benefit from skilled therapeutic intervention focusing on strengthening, STM, flexibility, and pain control. Physical Therapy Plan Frequency and Duration Frequency of 2x/Week Treatment Plan of Care Start 12/11/24 Date Plan of Care End 02/10/25 Date Therapeutic Interventions Therapeutic Gait Training,Home Exercise Program,Joint Mobilizations Interventions ,Manual Therapy,Neuromuscular Re-education,Patient/ Caregiver Education,Self-Care/Home Management,Soft Tissue Mobilization,Therapeutic Activities,Therapeutic Exercises Next Visit Focus/Plan Next Note Type Treatment Note Next Visit Plan STM, stretching, hip strengthening
--- NOTE | 2024-12-11 16:42 | PT.OPPOC ---
Physical, Occupational & Speech Therapy At [facility] Current Diagnoses Low back pain, unspecified (12/11/24) Visit Care Team Role Provider Type Tacos Evans DO Attending Provider Physician Family Provider Primary Care Provider Referring Provider Specialty: Family Practice Address: [address] [place] [address], [id number] Email: Plan Of Care PT-OP-B Current Condition Start: 12/11/24 15:01 Freq: Status: Active Protocol: Document 12/11/24 13:45 DCW (Rec: 12/11/24 16:41 DCW [id number]) Current Condition History of Current Condition Onset Date 14 week history Current Complaints Posterior L hip pain History of Current Pt is a 69 year old male presenting with a 14 week Condition history of posterior left hip pain. Pt reports pain is worst upon first getting up in the morning and after sitting for an extended period of time, especially sitting in meetings lasting 1+ hours. Pt reports that due to other medical problems, he spent about a year either lying in bed or sitting in a chair, and although he is doing better now, he feels that the decline in activity has a lot to do with his current pain. Has seen a chiropractor a few times with no change. Notes difficulty getting shoes on in the morning. Minimal change day-to-day. PT-OP-T Assessment and Plan Start: 12/11/24 15:01 Freq: Status: Active Protocol: Document 12/11/24 13:45 DCW (Rec: 12/11/24 16:41 DC [id number]) Physical Therapy Assessment Rehab Potential Rehabilitation Good Potential Evaluation Complexity Number of Personal 3 or More Factors/ Comorbidities Number of Body 4 or More Systems Impaired Clinical Evolving Presentation at Evaluation Impairments Impairments Functional Activities,Functional Mobility,Pain,Soft Tissue Mobility,Strength Goals Two Impairment Pt has difficulty donning shoes in the morning due to hip pain Non Ferrous Material Handler Goal (LTG) Pt to report pain in the morning a 3/10 at worst in order to better enable him to put his shoes on. LTG Duration 02/10/25 One Impairment Pt does not have an appropriate home exercise program Short Term Goal (STG Pt to be independent and compliant with an appropriate ) HEP STG Duration 01/10/25 Assessment Summary Assessment Pt presents with signs and symptoms consistent with referring diagnosis. Pt demonstrates increased tone and tenderness along left piriformis, limiting hip mobility and appears to be causing increased pain in his posterior hip. During attempted piriformis stretching, pt noted that he felt a stretch right in the place that's been bothering me. Additionally, displays bilateral hip weakness, which may be compounding his discomfort and hip instability during gait. Pt will likely benefit from skilled therapeutic intervention focusing on strengthening, STM, flexibility, and pain control. Physical Therapy Plan Frequency and Duration Frequency of 2x/Week Treatment Plan of Care Start 12/11/24 Date Plan of Care End 02/10/25 Date Therapeutic Interventions Therapeutic Gait Training,Home Exercise Program,Joint Mobilizations Interventions ,Manual Therapy,Neuromuscular Re-education,Patient/ Caregiver Education,Self-Care/Home Management,Soft Tissue Mobilization,Therapeutic Activities,Therapeutic Exercises Next Visit Focus/Plan Next Note Type Treatment Note Next Visit Plan STM, stretching, hip strengthening Plan of Care Dates Plan of Care Start Date 12/11/24 Plan of Care End Date 02/10/25 Electronically Signed by: Jak Ren, PT 12/11/24 [id number] If you are in agreement with this Plan of Care, please return a signed and dated copy. I have reviewed this Plan of Care and certify that the skilled therapy services above are required to meet the patient?s needs. Physician Signature Date Printed Name and Credentials Clinical Instructor Signature Printed Name and Credentials
--- NOTE | 2024-12-14 15:05 | PT.OTN ---
Addendum entered and electronically signed by Jak Ren, PT 12/14/24 15:57: PT direct supervision and direction to student PT Jacob Borden throughout session Original Note: Current Diagnoses Low back pain, unspecified (12/14/24) Physical Therapy Treatment Note PT-OP-A Visit Information Start: 12/11/24 15:01 Freq: Status: Active Protocol: Document 12/14/24 11:35 LFG (Rec: 12/14/24 09:54 LFG Laptop) Out-Patient Physical Therapy Visit Information Visit Information Visit Type Treatment Note Visit Start Time 11:35 Visit Stop Time 12:19 Visit Number 2 Evaluation Information Evaluation Date 12/11/24 PT-OP-B Current Condition Start: 12/11/24 15:01 Freq: Status: Active Protocol: Document 12/11/24 13:45 DCW (Rec: 12/11/24 16:41 DCW [id number]) Current Condition History of Current Condition Onset Date 14 week history Current Complaints Posterior L hip pain History of Current Pt is a 69 year old male presenting with a 14 week Condition history of posterior left hip pain. Pt reports pain is worst upon first getting up in the morning and after sitting for an extended period of time, especially sitting in meetings lasting 1+ hours. Pt reports that due to other medical problems, he spent about a year either lying in bed or sitting in a chair, and although he is doing better now, he feels that the decline in activity has a lot to do with his current pain. Has seen a chiropractor a few times with no change. Notes difficulty getting shoes on in the morning. Minimal change day-to-day. PT-OP-C Subjective Start: 12/11/24 15:01 Freq: Status: Active Protocol: Document 12/14/24 11:35 LFG (Rec: 12/14/24 09:56 LFG Laptop) OP-PT Subjective Patient Comments Patient Comments Some shooting pain down the leg while doing exercises this morning. Yesterday was bad day with pain everywhere. Complaints of L shoulder pain. Low back/hip pain site keep changing positions. PT-OP-F Manual Assessment Start: 12/11/24 15:01 Freq: Status: Active Protocol: Document 12/11/24 13:45 DCW (Rec: 12/11/24 15:12 DCW [id number]) Manual Assessments Soft Tissue Assessment Soft Tissue Mobility Moderate tone with tenderness to palpation 3/4: wincing Assessment and withdraw along left piriformis Joint Mobility Assessment Joint Mobility Left hip joint passive ROM WNL, no joint limitations Assessment PT-OP-L Special Tests Start: 12/11/24 15:01 Freq: Status: Active Protocol: Document 12/11/24 13:45 DCW (Rec: 12/11/24 15:12 DCW [id number]) Special Tests Hip Special Tests Straight Leg Raise Test Results Negative Scour Test Test Results Negative Piriformis Test Results Positive L FRANDY Test Results Negative PT-OP-M Strength Start: 12/11/24 15:01 Freq: Status: Active Protocol: Document 12/11/24 13:45 DCW (Rec: 12/11/24 15:12 DCW [id number]) Hip Strength Hip Manual Muscle Testing Right Flexion (L2) 4+ Good+ Abduction 4 Good Adduction 4 Good External Rotation 4 Good Internal Rotation 4 Good Left Flexion (L2) 4+ Good+ Abduction 4- Good- Adduction 4- Good- External Rotation 4 Good Internal Rotation 4 Good PT-OP-Q Treatments Start: 12/11/24 15:01 Freq: Status: Active Protocol: Document 12/14/24 11:35 LFG (Rec: 12/14/24 09:54 LFG Laptop) Gym Equipment Shuttle Recovery unilateral Details unilateral squats Resistance 50# Shuttle Recovery Stable Platform Reps/Time x15 Bilateral Details bilateral squats Resistance 37# Shuttle Recovery Stable Platform Reps/Time x15 Therapeutic Exercises Supine Exercises Glute bridges Supine Exercise Name Glute bridges Reps/Minutes x20 Comments reports feeling more consistent muscle burning than others Piriformis Supine Exercise Name Figure-4, knee to opposite shoulder Side bilateral Reps/Minutes 2x30 sec hold Comments reports feeling stretch in anterior hip, cues to go diagnolly -> feels post Sidelying Exercises Reverse Clamshell Sidelying Exercise Reverse Clamshell Name Side bilateral Reps/Minutes x20 Comments reports feeling hip burning/fatigue Clamshell Sidelying Exercise Clamshell Name Side bilateral Reps/Minutes x20 Standing Exercises Monster/side walks Standing Exercise Side walks Name Side bilateral Resistance L2 Equipment Used hand rail for supp Reps/Minutes x2 Comments cues for feet fwd, foot drag Self-Care/Home Management Treatment Education Patient Education Home Exercise Program,Pain Management Caregiver Education Reviewed and corrected form with HEP exercises Other Education Patient had questions regarding the length of his PT and of his sxs. PT-OP-T Assessment and Plan Start: 12/11/24 15:01 Freq: Status: Active Protocol: Document 12/14/24 11:35 LFG (Rec: 12/14/24 09:54 LFG Laptop) Physical Therapy Assessment Rehab Potential Rehabilitation Good Potential Evaluation Complexity Number of Personal 3 or More Factors/ Comorbidities Number of Body 4 or More Systems Impaired Clinical Evolving Presentation at Evaluation Impairments Impairments Functional Activities,Functional Mobility,Pain,Soft Tissue Mobility,Strength Goals Two Impairment Pt has difficulty donning shoes in the morning due to hip pain Asset Protection Officer Goal (LTG) Pt to report pain in the morning a 3/10 at worst in order to better enable him to put his shoes on. LTG Duration 02/10/25 One Impairment Pt does not have an appropriate home exercise program Short Term Goal (STG Pt to be independent and compliant with an appropriate ) HEP STG Duration 01/10/25 Assessment Summary Assessment Pt tolerated todays session well demonstrating good muscle recruitment, with minimal difficulties following directions/memory. Some of the exercises reproduced some of his sxs but were reduced with cues. HEP review showed pt had difficulties remembering how to do exercises, sitting figure 4 stretch was starting reproduce sxs. Instructed to keep doing HEP properly but to ease off with any pain sxs. Continue strengthening, STM, flexibility and pain management. Physical Therapy Plan Frequency and Duration Frequency of 2x/Week Treatment Plan of Care Start 12/11/24 Date Plan of Care End 02/10/25 Date Therapeutic Interventions Therapeutic Gait Training,Home Exercise Program,Joint Mobilizations Interventions ,Manual Therapy,Neuromuscular Re-education,Patient/ Caregiver Education,Self-Care/Home Management,Soft Tissue Mobilization,Therapeutic Activities,Therapeutic Exercises Next Visit Focus/Plan Next Note Type Treatment Note Next Visit Plan STM, stretching, hip strengthening
--- NOTE | 2024-12-16 17:00 | PT.OTN ---
Current Diagnoses Low back pain, unspecified (12/16/24) Physical Therapy Treatment Note PT-OP-A Visit Information Start: 12/11/24 15:01 Freq: Status: Active Protocol: Document 12/16/24 16:15 DCW (Rec: 12/16/24 16:59 DCW [id number]) Out-Patient Physical Therapy Visit Information Visit Information Visit Type Treatment Note Visit Start Time 16:15 Visit Stop Time 17:00 Visit Number 3 Number of CATHETERIZATION LABORATORY TECHNICIAN Visits 0 Evaluation Information Evaluation Date 12/11/24 PT-OP-B Current Condition Start: 12/11/24 15:01 Freq: Status: Active Protocol: Document 12/11/24 13:45 DCW (Rec: 12/11/24 16:41 DCW [id number]) Current Condition History of Current Condition Onset Date 14 week history Current Complaints Posterior L hip pain History of Current Pt is a 69 year old male presenting with a 14 week Condition history of posterior left hip pain. Pt reports pain is worst upon first getting up in the morning and after sitting for an extended period of time, especially sitting in meetings lasting 1+ hours. Pt reports that due to other medical problems, he spent about a year either lying in bed or sitting in a chair, and although he is doing better now, he feels that the decline in activity has a lot to do with his current pain. Has seen a chiropractor a few times with no change. Notes difficulty getting shoes on in the morning. Minimal change day-to-day. PT-OP-C Subjective Start: 12/11/24 15:01 Freq: Status: Active Protocol: Document 12/16/24 16:15 DCW (Rec: 12/16/24 16:59 DCW [id number]) OP-PT Subjective Patient Comments Patient Comments It feels as though it's improving. PT-OP-F Manual Assessment Start: 12/11/24 15:01 Freq: Status: Active Protocol: Document 12/11/24 13:45 DCW (Rec: 12/11/24 15:12 DCW [id number]) Manual Assessments Soft Tissue Assessment Soft Tissue Mobility Moderate tone with tenderness to palpation 3/4: wincing Assessment and withdraw along left piriformis Joint Mobility Assessment Joint Mobility Left hip joint passive ROM WNL, no joint limitations Assessment PT-OP-L Special Tests Start: 12/11/24 15:01 Freq: Status: Active Protocol: Document 12/11/24 13:45 DCW (Rec: 12/11/24 15:12 DCW [id number]) Special Tests Hip Special Tests Straight Leg Raise Test Results Negative Scour Test Test Results Negative Piriformis Test Results Positive L FRANDY Test Results Negative PT-OP-M Strength Start: 12/11/24 15:01 Freq: Status: Active Protocol: Document 12/11/24 13:45 DCW (Rec: 12/11/24 15:12 DCW [id number]) Hip Strength Hip Manual Muscle Testing Right Flexion (L2) 4+ Good+ Abduction 4 Good Adduction 4 Good External Rotation 4 Good Internal Rotation 4 Good Left Flexion (L2) 4+ Good+ Abduction 4- Good- Adduction 4- Good- External Rotation 4 Good Internal Rotation 4 Good PT-OP-Q Treatments Start: 12/11/24 15:01 Freq: Status: Active Protocol: Document 12/16/24 16:15 DCW (Rec: 12/16/24 16:59 DCW [id number]) Gym Equipment Shuttle Recovery unilateral Details unilateral squats Resistance 37## Shuttle Recovery Stable Platform Reps/Time x15 Bilateral Details bilateral squats Resistance 62# Shuttle Recovery Stable Platform Reps/Time x15 Shuttle Balance Red Details WBOS, Staggered Therapeutic Exercises Supine Exercises Piriformis Supine Exercise Name Figure-4, knee to opposite shoulder Side bilateral Reps/Minutes 2x30 sec hold Standing Exercises Monster/side walks Standing Exercise Resisted Ambulation - Lateral Name Side bilateral Resistance Green loop Equipment Used // bars Reps/Minutes x2 Comments cues for foot drag Manual Therapy Treatment Consent Patient gave verbal Yes consent for manual treatment Soft Tissue Mobilization Piriformis Body Location L Piriformis Mobilization Type Strumming,Sustained Pressure Intensity/Depth Moderate Body Position Sidelying PT-OP-T Assessment and Plan Start: 12/11/24 15:01 Freq: Status: Active Protocol: Document 12/16/24 16:15 DCW (Rec: 12/16/24 16:59 DCW [id number]) Physical Therapy Assessment Impairments Impairments Functional Activities,Functional Mobility,Pain,Soft Tissue Mobility,Strength Goals Two Impairment Pt has difficulty donning shoes in the morning due to hip pain Model And Dye Person Goal (LTG) Pt to report pain in the morning a 3/10 at worst in order to better enable him to put his shoes on. LTG Duration 02/10/25 One Impairment Pt does not have an appropriate home exercise program Short Term Goal (STG Pt to be independent and compliant with an appropriate ) HEP STG Duration 01/10/25 Assessment Summary Assessment Good response to treatment today, pt felt stretching today was less painful than what he has been doing at home, instructed to back off stretch a little bit, reminded to not push into pain. Physical Therapy Plan Frequency and Duration Frequency of 2x/Week Treatment Plan of Care Start 12/11/24 Date Plan of Care End 02/10/25 Date Therapeutic Interventions Therapeutic Gait Training,Home Exercise Program,Joint Mobilizations Interventions ,Manual Therapy,Neuromuscular Re-education,Patient/ Caregiver Education,Self-Care/Home Management,Soft Tissue Mobilization,Therapeutic Activities,Therapeutic Exercises Next Visit Focus/Plan Next Note Type Treatment Note Next Visit Plan STM, stretching, hip strengthening
--- NOTE | 2024-12-25 12:25 | PT.OTN ---
Current Diagnoses Low back pain, unspecified (12/25/24) Physical Therapy Treatment Note PT-OP-A Visit Information Start: 12/11/24 15:01 Freq: Status: Active Protocol: Document 12/25/24 11:39 SP (Rec: 12/25/24 13:05 SP [id number]) Out-Patient Physical Therapy Visit Information Visit Information Visit Type Treatment Note Visit Start Time 11:39 Visit Stop Time 12:25 Visit Number 4 Number of HOSPICE CONSULTANT Visits 1 Evaluation Information Evaluation Date 12/11/24 PT-OP-B Current Condition Start: 12/11/24 15:01 Freq: Status: Active Protocol: Document 12/11/24 13:45 DCW (Rec: 12/11/24 16:41 DCW [id number]) Current Condition History of Current Condition Onset Date 14 week history Current Complaints Posterior L hip pain History of Current Pt is a 69 year old male presenting with a 14 week Condition history of posterior left hip pain. Pt reports pain is worst upon first getting up in the morning and after sitting for an extended period of time, especially sitting in meetings lasting 1+ hours. Pt reports that due to other medical problems, he spent about a year either lying in bed or sitting in a chair, and although he is doing better now, he feels that the decline in activity has a lot to do with his current pain. Has seen a chiropractor a few times with no change. Notes difficulty getting shoes on in the morning. Minimal change day-to-day. PT-OP-C Subjective Start: 12/11/24 15:01 Freq: Status: Active Protocol: Document 12/25/24 11:39 SP (Rec: 12/25/24 13:05 SP [id number]) OP-PT Subjective Patient Comments Patient Comments Pt is compliant with stretching but limits hold/reps hip ER stretch. Does have shooting pain in L low back that to lower leg and at times up from neuropathy in feet. PT-OP-F Manual Assessment Start: 12/11/24 15:01 Freq: Status: Active Protocol: Document 12/11/24 13:45 DCW (Rec: 12/11/24 15:12 DCW [id number]) Manual Assessments Soft Tissue Assessment Soft Tissue Mobility Moderate tone with tenderness to palpation 3/4: wincing Assessment and withdraw along left piriformis Joint Mobility Assessment Joint Mobility Left hip joint passive ROM WNL, no joint limitations Assessment PT-OP-L Special Tests Start: 12/11/24 15:01 Freq: Status: Active Protocol: Document 12/11/24 13:45 DCW (Rec: 12/11/24 15:12 DCW [id number]) Special Tests Hip Special Tests Straight Leg Raise Test Results Negative Scour Test Test Results Negative Piriformis Test Results Positive L FRANDY Test Results Negative PT-OP-M Strength Start: 12/11/24 15:01 Freq: Status: Active Protocol: Document 12/11/24 13:45 DCW (Rec: 12/11/24 15:12 DCW [id number]) Hip Strength Hip Manual Muscle Testing Right Flexion (L2) 4+ Good+ Abduction 4 Good Adduction 4 Good External Rotation 4 Good Internal Rotation 4 Good Left Flexion (L2) 4+ Good+ Abduction 4- Good- Adduction 4- Good- External Rotation 4 Good Internal Rotation 4 Good PT-OP-Q Treatments Start: 12/11/24 15:01 Freq: Status: Active Protocol: Document 12/25/24 11:39 SP (Rec: 12/25/24 13:05 SP [id number]) Therapeutic Exercises Sidelying Exercises Reverse Clamshell Sidelying Exercise Reverse Clamshell Name Side bilateral Reps/Minutes x20 Comments reports doing well with at home- verbal review only today Clamshell Sidelying Exercise Clamshell Name Side bilateral Reps/Minutes 3x8 reps Comments performed during MWM manual to glut, TFL, Pirif-today Sitting Exercises Pelvic Tilts Sitting Exercise added to HEP on front chair (tball in PT) with HO Name Side bilateral Resistance 75cm tball Equipment Used 1. pelvic tilts 2. TA marching Reps/Minutes 10 reps each direction Comments cued tailbone reference fwd/bwd/push sits bones down into chair Piriformis Sitting Exercise Seated figure-4: ER little, IR better tolerated Name Side left Reps/Minutes 20 SH Comments after manual better Standing Exercises Monster/side walks Standing Exercise Resisted Ambulation - Lateral- added to HEP with HO Name Side bilateral Resistance purple loop around maldonado Equipment Used table contact Reps/Minutes 10 ft x2 laps Comments cues for foot clearance, slow ecc, forward lean into forefoot bal support, Manual Therapy Treatment Consent Patient gave verbal Yes consent for manual treatment Soft Tissue Mobilization L hip Body Location TFL, Glut med, QL Comments Gentle STMs then MWM hip clamshell small range- good feedback less muscle tension, improved muscle pliability Piriformis Body Location L Piriformis Mobilization Type Strumming,Sustained Pressure Intensity/Depth Moderate Body Position Sidelying Joint Mobilizations L hip Direction lateral, inferior, posterolateral (piriformis IR), anteromedial (hook clam) Grade II Body Position Hooklying Comments use strap- Neuro Re-Education Treatment Balance Activities Ibeth stepping Details forward Surface floor and uneven Equipment 6 hurdles, 4 foam stones Comments CG-5%A- improved stability with cues elongated posture, scap squeeze, TA and be sure look at hurdles, softer eccentric stepping even though has decreased B feet sensation. PT-OP-T Assessment and Plan Start: 12/11/24 15:01 Freq: Status: Active Protocol: Document 12/25/24 11:39 SP (Rec: 12/25/24 13:05 SP [id number]) Physical Therapy Assessment Goals Two Impairment Pt has difficulty donning shoes in the morning due to hip pain Poultry Buyer Goal (LTG) Pt to report pain in the morning a 3/10 at worst in order to better enable him to put his shoes on. LTG Duration 02/10/25 One Impairment Pt does not have an appropriate home exercise program Short Term Goal (STG Pt to be independent and compliant with an appropriate ) HEP STG Duration 01/10/25 Assessment Summary Assessment Pt good feedback response to manual L hip STMs and mobs today. Wow, my hip feels alot better, moving. Incorporated pelvic tilts for core and LS/hip mobility with TA, challenge coordinating initially but improved with tailbone directioning reference helped him perform with less back and hip discomfort to return bike riding he commented wanted to do with spouse. Incorporated ibeth stepping then added uneven surface with cues for posture and core engagement helped midline stability to improve gait decreased pain and balance wants to improve. Cues hip rotation stretching only if comfortable ER vs IR. Added resisted lateral stepping for hip abd strengthening and balance for home . Provided HOs for set up, recall due to commented has decreased memory recall at times. Physical Therapy Plan Frequency and Duration Frequency of 2x/Week Treatment Plan of Care Start 12/11/24 Date Plan of Care End 02/10/25 Date Therapeutic Interventions Therapeutic Gait Training,Home Exercise Program,Joint Mobilizations Interventions ,Manual Therapy,Neuromuscular Re-education,Patient/ Caregiver Education,Self-Care/Home Management,Soft Tissue Mobilization,Therapeutic Activities,Therapeutic Exercises Next Visit Focus/Plan Next Note Type Treatment Note Next Visit Plan Assess response to manual hip mobs (can instruct self with strap if can set up with instruction), STM, stretching, hip strengthening added resisted side stepping. Recheck pelvic tilts ROM for return to bike.
--- NOTE | 2024-12-31 17:56 | PT.OTN ---
Addendum entered and electronically signed by Jak Ren, PT 12/31/24 17:57: PT direct supervision and direction to student PT Jacob Borden throughout session Original Note: Current Diagnoses Low back pain, unspecified (12/31/24) Physical Therapy Treatment Note PT-OP-A Visit Information Start: 12/11/24 15:01 Freq: Status: Active Protocol: Document 12/31/24 17:01 LFG (Rec: 12/31/24 17:53 [facility] [id number]) Out-Patient Physical Therapy Visit Information Visit Information Visit Type Treatment Note Visit Start Time 17:01 Visit Stop Time 17:47 Visit Number 5 Number of PRODUCTION EXPERT Visits 0 Evaluation Information Evaluation Date 12/11/24 PT-OP-B Current Condition Start: 12/11/24 15:01 Freq: Status: Active Protocol: Document 12/11/24 13:45 DCW (Rec: 12/11/24 16:41 DCW [id number]) Current Condition History of Current Condition Onset Date 14 week history Current Complaints Posterior L hip pain History of Current Pt is a 69 year old male presenting with a 14 week Condition history of posterior left hip pain. Pt reports pain is worst upon first getting up in the morning and after sitting for an extended period of time, especially sitting in meetings lasting 1+ hours. Pt reports that due to other medical problems, he spent about a year either lying in bed or sitting in a chair, and although he is doing better now, he feels that the decline in activity has a lot to do with his current pain. Has seen a chiropractor a few times with no change. Notes difficulty getting shoes on in the morning. Minimal change day-to-day. PT-OP-C Subjective Start: 12/11/24 15:01 Freq: Status: Active Protocol: Document 12/31/24 17:01 LFG (Rec: 12/31/24 17:53 G [id number]) OP-PT Subjective Patient Comments Patient Comments Complaints of shooting pain at nights sometimes or when getting out of bed wrong all the way down to the ankle. Trouble getting his shoes on. PT-OP-F Manual Assessment Start: 12/11/24 15:01 Freq: Status: Active Protocol: Document 12/11/24 13:45 DCW (Rec: 12/11/24 15:12 DCW [id number]) Manual Assessments Soft Tissue Assessment Soft Tissue Mobility Moderate tone with tenderness to palpation 3/4: wincing Assessment and withdraw along left piriformis Joint Mobility Assessment Joint Mobility Left hip joint passive ROM WNL, no joint limitations Assessment PT-OP-L Special Tests Start: 12/11/24 15:01 Freq: Status: Active Protocol: Document 12/11/24 13:45 DCW (Rec: 12/11/24 15:12 DCW [id number]) Special Tests Hip Special Tests Straight Leg Raise Test Results Negative Scour Test Test Results Negative Piriformis Test Results Positive L FRANDY Test Results Negative PT-OP-M Strength Start: 12/11/24 15:01 Freq: Status: Active Protocol: Document 12/11/24 13:45 DCW (Rec: 12/11/24 15:12 DCW [id number]) Hip Strength Hip Manual Muscle Testing Right Flexion (L2) 4+ Good+ Abduction 4 Good Adduction 4 Good External Rotation 4 Good Internal Rotation 4 Good Left Flexion (L2) 4+ Good+ Abduction 4- Good- Adduction 4- Good- External Rotation 4 Good Internal Rotation 4 Good PT-OP-Q Treatments Start: 12/11/24 15:01 Freq: Status: Active Protocol: Document 12/31/24 17:01 LFG (Rec: 12/31/24 17:53 [facility] [id number]) Gym Equipment Shuttle Recovery unilateral Details unilateral squats Resistance 37## Shuttle Recovery Stable Platform Reps/Time x15 Bilateral Details bilateral squats Resistance 62# Shuttle Recovery Stable Platform Reps/Time x25 Therapeutic Exercises Supine Exercises Open book Supine Exercise Name Open books Side bilateral Reps/Minutes x12 Comments cues to hold at end ROM Lumbar rotations Supine Exercise Name Lumbar rotations Side bilateral Comments cues to limit ROM to pain free range Glute bridges Supine Exercise Name Glute bridges Comments cues to engage core, drive heels, contract glutes Sidelying Exercises Hip abd Sidelying Exercise Hip abductions Name Side bilateral Comments cues for fwd hip, leg slightly behind Manual Therapy Treatment Manual Traction Lumbar Details Attempted Body Position Supine Comments Pt felt pressure on thighs, no significant change in his low back ss PT-OP-T Assessment and Plan Start: 12/11/24 15:01 Freq: Status: Active Protocol: Document 12/31/24 17:01 LFG (Rec: 12/31/24 17:53 [facility] [id number]) Physical Therapy Assessment Impairments Impairments Functional Activities,Functional Mobility,Pain,Soft Tissue Mobility,Strength Goals Two Impairment Pt has difficulty donning shoes in the morning due to hip pain Fpc Goal (LTG) Pt to report pain in the morning a 3/10 at worst in order to better enable him to put his shoes on. LTG Duration 02/10/25 One Impairment Pt does not have an appropriate home exercise program Short Term Goal (STG Pt to be independent and compliant with an appropriate ) HEP STG Duration 01/10/25 Assessment Summary Assessment Patient reported feeling good stretch with open books and lumbar rotations. Sebastian low/mid back during glute bridges but was able to redirect to target tissues with cueing. Reports target tissue being worked out at the end of the session. Continue to focus on strengthening, STM, flexibility, and pain control. Physical Therapy Plan Frequency and Duration Frequency of 2x/Week Treatment Plan of Care Start 12/11/24 Date Plan of Care End 02/10/25 Date Therapeutic Interventions Therapeutic Gait Training,Home Exercise Program,Joint Mobilizations Interventions ,Manual Therapy,Neuromuscular Re-education,Patient/ Caregiver Education,Self-Care/Home Management,Soft Tissue Mobilization,Therapeutic Activities,Therapeutic Exercises Next Visit Focus/Plan Next Note Type Treatment Note Next Visit Plan Assess response to manual hip mobs (can instruct self with strap if can set up with instruction), STM, stretching, hip strengthening added resisted side stepping. Recheck pelvic tilts ROM for return to bike.
--- NOTE | 2025-05-03 16:46 | PT.OPDS ---
Current Diagnoses Low back pain, unspecified (12/31/24) Visit Care Team Role Provider Type Tacos Evans DO Attending Provider Physician Family Provider Primary Care Provider Referring Provider Specialty: Family Practice Address: [address] [place] [address], [facility] Email: Visit Number Visit Number 5 Discharge Summary PT-OP-A Visit Information Start: 12/11/24 15:01 Freq: Status: Active Protocol: Document 12/31/24 17:01 LFG (Rec: 12/31/24 17:53 [facility] [id number]) Out-Patient Physical Therapy Visit Information Visit Information Visit Type Treatment Note Visit Start Time 17:01 Visit Stop Time 17:47 Visit Number 5 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 Pt reports pain is worst upon first getting up in the morning and after sitting for an extended period of time, especially sitting in meetings lasting 1+ hours. Pt reports that due to other medical problems, he spent about a year either lying in bed or sitting in a chair, and although he is doing better now, he feels that the decline in activity has a lot to do with his current pain. Has seen a chiropractor a few times with no change. Notes difficulty getting shoes on in the morning. Minimal change day-to-day. PT-OP-C Subjective Start: 12/11/24 15:01 Freq: Status: Active Protocol: Document 12/31/24 17:01 LFG (Rec: 12/31/24 17:53 [facility] [id number]) OP-PT Subjective Patient Comments Patient Comments Complaints of shooting pain at nights sometimes or when getting out of bed wrong all the way down to the ankle. Trouble getting his shoes on. PT-OP-F Manual Assessment Start: 12/11/24 15:01 Freq: Status: Active Protocol: Document 12/11/24 13:45 DCW (Rec: 12/11/24 15:12 DCW [id number]) Manual Assessments Soft Tissue Assessment Soft Tissue Mobility Moderate tone with tenderness to palpation 3/4: wincing Assessment and withdraw along left piriformis Joint Mobility Assessment Joint Mobility Left hip joint passive ROM WNL, no joint limitations Assessment PT-OP-L Special Tests Start: 12/11/24 15:01 Freq: Status: Active Protocol: Document 12/11/24 13:45 DCW (Rec: 12/11/24 15:12 DCW [id number]) Special Tests Hip Special Tests Straight Leg Raise Test Results Negative Scour Test Test Results Negative Piriformis Test Results Positive L FRANDY Test Results Negative PT-OP-M Strength Start: 12/11/24 15:01 Freq: Status: Active Protocol: Document 12/11/24 13:45 DCW (Rec: 12/11/24 15:12 DCW [id number]) Hip Strength Hip Manual Muscle Testing Right Flexion (L2) 4+ Good+ Abduction 4 Good Adduction 4 Good External Rotation 4 Good Internal Rotation 4 Good Left Flexion (L2) 4+ Good+ Abduction 4- Good- Adduction 4- Good- External Rotation 4 Good Internal Rotation 4 Good PT-OP-T Assessment and Plan Start: 12/11/24 15:01 Freq: Status: Active Protocol: Document 05/03/25 16:45 DCW (Rec: 05/03/25 16:46 DCW [id number]) Physical Therapy Assessment Assessment Summary Assessment Pt has not been seen in four months, the POC has since . Pt will be discharged from skilled therapy at this time, will require a new referral in order to return in the future. Physical Therapy Plan Discharge Physical Therapy Discharge Reasons No Longer Attending PT Next Visit Focus/Plan Next Note Type Discharge Summary
== END 2025-05-04 09:31 | disposition home or self-care (01) ==
LOC: PHYS 17:00
PROVIDERS: Family Provider Family Medicine; PCP Family Medicine; Referring Provider Family Medicine; Visit Provider Family Medicine
DX: M54.50 Low back pain, unspecified (principal)
CPT/HCPCS: 97110; 97140; 97162

== ENCOUNTER → 2025-01-21 11:49 | Outpatient (CLI) | payer OTHER, SELFPAY ==
[2020-10-07 20:39] VITALS: BMI 32.5
[2025-01-21 12:21] LABS: Ammonia (NH3) < 9 umol/L (9-30)
[2025-01-21 12:33] LABS: Add Manual Diff / Slide Review NO; Hematocrit 41.6 % (41-53); Hemoglobin 14.3 g/dL (13.5-17.5); Lymphocytes Absolute Auto 800 /uL (1100-4500); Mean Corpuscular HGB Conc 34.3 % (30-36); Mean Corpuscular Hemoglobin 33.2 PG (26-34); Mean Corpuscular Volume 96.8 fL (80-100); Platelet Count 111 X10^3/uL (150-400)
[2025-01-21 13:00] LABS: Alanine Aminotransferase 18 IU/L (<50); Albumin 4.4 g/dL (3.5-5.0); Albumin Globulin Ratio 1.7 (1.0-2.8); Alkaline Phosphatase 41 U/L (38-126); Blood Urea Nitrogen 11 mg/dL (9-20); Calcium 9.3 mg/dL (8.4-10.2); Carbon Dioxide 30 mmol/L (22-32); Chloride 94 mmol/L (98-107); Cholesterol 171 mg/dL (140-199); Estimated Glomerular Filt Rate > 60 mL/min (>60); Globulin 2.6 g/dL (1.7-4.1); Glucose 107 mg/dL (70-99); HDL Cholesterol 71 mg/dL (40-60); HEMOLYSIS < 15 (0-50); Potassium 4.1 mmol/L (3.4-5.1); Sodium 134 mmol/L (137-145); Total Protein 7.0 g/dL (6.3-8.2); Triglycerides 95 mg/dL (35-150)
[2025-01-21 21:00] LABS: Hemoglobin A1C% w Est Avg Glu 5.5 % (4.0-6.0)
== END ==
PROVIDERS: Family Provider Family Medicine; PCP Family Medicine; Referring Provider Family Medicine; Visit Provider Family Medicine
DX: I10 Essential (primary) hypertension (principal); R73.01 Impaired fasting glucose; Z12.5 Encounter for screening for malignant neoplasm of prostate; G89.4 Chronic pain syndrome
CPT/HCPCS: 36415; 80053; 80061; 82140; 83036; 85025; G0103

== ENCOUNTER 2025-04-29 10:12 | Outpatient (CLI) | payer OTHER, SELFPAY ==
[2020-10-07 20:39] VITALS: BMI 32.5
[2025-04-29 11:08] VITALS: BP 177/93; PULSE 60; RESP 16; O2SAT 95
[2025-04-29 11:17] VITALS: BP 166/83; PULSE 59; RESP 16; O2SAT 96
[2025-04-29 11:20] VITALS: BP 166/79; PULSE 59; RESP 16; O2SAT 96
[2025-04-29] MEDS: LIDOCAINE 1% (PF) 5 ML 10 ML INJ (11:22)
[2025-04-29 11:23] VITALS: BP 179/82; PULSE 60; RESP 14; O2SAT 98
[2025-04-29 11:30] VITALS: BP 165/89; PULSE 56; RESP 16; O2SAT 98
--- NOTE | 2025-04-29 12:32 | PM.PROC.IR.1 ---
Date/Time/Diagnoses Date of procedure: 04/29/25 Time of procedure: 10:45 Pre-procedure diagnosis: Lumbar stenosis, radiculopathy Post-procedure diagnosis: same Procedure Notes Procedure: Interlaminar epidural steroid injection L5-S1 Indications: Lumbar stenosis, radiculopathy Physician: Power Skinner Total sedation minutes: 0 Complications: none Procedure in detail & Post-procedure care: Patient is here for the planned procedure today as noted. No significant change since the last office visit. For additional clinical scenario please see those office notes. Focused exam: Vital signs reviewed as charted on intake. Gen: Well developed. No acute distress. CV: RRR, no M/R/G Chest: Non-labored breathing, CTAB. Psych: Alert and well-oriented. Mood/Affect: normal. Patient suitable for the planned procedure today: Yes === The following procedure was performed in the office today: Lumbar Epidural Steroid Injection with fluoroscopic guidance - Interlaminar approach ([id number]) Levels Treated: [L5-S1] Approach: interlaminar Soft tissue: [1% lidocaine 2 mL] Test dose: [1% lidocaine 1 mL] Injectate: 0.75 mL of Depo-Medrol (80mg/mL) in 1.25 mL 1% lidocaine and 1.5 mL normal saline Fluoroscopy Agent: Isovue 300-M 1.5 mL Notes: Note he is on Eliquis which was held for the procedure, last dose Saturday04/26/25 at 10:00 a.m.. May resume 6 hours postprocedure or next regularly scheduled dose. 3.5 in 20 gauge Touhy needle utilized an adequate. Left paramedian approach. Preprocedure pain 6/10, postprocedure pain 2/10. Procedure: After discussing the risks, benefits, and alternatives to the procedure, the patient expressed understanding and wished to proceed. The risks include but are not limited to infection, allergic reaction, nerve damage, stroke, paralysis, epidural hematoma, syncope, headache, respiratory or cardiac arrest, spinal cord injury, and scar formation. Informed consent was obtained and all patient questions were answered. The patient was brought to the procedure suite and placed in the prone position. A pre-procedural pause was conducted to verify: correct patient identity, procedure to be performed and as applicable, correct side and site, correct patient position, and any special requirements. Using a paramedian approach from the side noted above, the region overlying the target was localized under fluoroscopic visualization and the soft tissues overlying this structure were infiltrated with the anesthetic listed above. With fluoroscopic guidance, a #20 gauge Tuohy needle (unless otherwise noted) was inserted into the epidural space using a paramedian approach. The epidural space was localized utilizing intermittent multiplanar fluoroscopic guidance and loss of resistance technique. After negative aspiration, the contrast noted above was injected into the epidural space and the flow of contrast was observed, confirming epidural spread without evidence of intravascular or intrathecal spread. Multi-planar radiographs were obtained for documentation purposes. A test dose of lidocaine was injected into the above noted epidural space, and the patient was observed for 30-60 seconds. No sensory deficits were reported and normal lower extremity motor function was noted. Subsequently, the injectate as noted above was administered into the level noted above. The patient tolerated the procedure well and was discharged after an appropriate period of observation. If there are any complications, the patient was instructed to call us. The patient is to follow-up with the requesting provider in 2-3 weeks. This note was compiled using voice recognition software and therefore may contain typos. Please contact the author with any questions or concerns.
== END 2025-04-29 11:54 | disposition home or self-care (01) ==
PROVIDERS: PCP Family Medicine; Referring Provider Family Medicine; Visit Provider Physical Medicine & Rehabilitation
DX: M54.17 Radiculopathy, lumbosacral region (principal); M48.061 Spinal stenosis, lumbar region without neurogenic claudication
CPT/HCPCS: 62323; J1010